=== PATIENT | female | born 1960 | race Caucasian/White ===

== ENCOUNTER 2019-12-25 18:33 | Emergency (ER) | payer OTHER ==
[2019-12-25] MEDS ORDERED: Adacel (T-DAP) 0.5 ML SYRINGE ONE (19:11)
[2019-12-25] MEDS ORDERED: Bacitracin 1 PK ONE (19:24)
== END 2019-12-25 19:34 | disposition home or self-care (01) ==
LOC: ERS 18:33
DX: S61.412A Laceration without foreign body of left hand, initial encounter (principal); E11.9 Type 2 diabetes mellitus without complications; F17.210 Nicotine dependence, cigarettes, uncomplicated; F31.9 Bipolar disorder, unspecified; Z23 Encounter for immunization; W26.8XXA Contact with other sharp object(s), not elsewhere classified, initial encounter
CPT/HCPCS: 12001; 90471; 90715

== ENCOUNTER 2020-06-23 21:04 | Inpatient (IN) | payer MEDICARE, OTHER ==
[2020-06-23 22:08] LABS: #Basophils 0.1 thou/uL (0.0-0.2); #Eosinphils 0.8 thou/uL (0.0-0.7); #Lymphocytes 1.8 thou/uL (1.20-3.40); #Monocytes 0.7 thou/uL (0.11-0.59); %Eosinophils 8.4 % (0.0-10.0); %Lymphocytes 18.8 % (21.0-51.0); %Monocytes 6.9 % (0.0-10.0); %Neutrophils 64.8 % (42.0-75.0); Hemoglobin 10.3 g/dL (12.0-16.0); Mean Corpuscular HGB CONC 33.4 g/dL (32.0-36.0); Mean Corpuscular Hemoglobin 32.8 pg (27.0-31.0); Mean Corpuscular Volume 98.2 fL (78.0-98.0); Mean Platelet Volume 8.4 fL (7.4-10.4); Platelet Count 299 thou/uL (130-400); Red Blood Cell (RBC) Count 3.13 mill/uL (4.20-5.40); White Blood Cell (WBC) Count 9.3 thou/uL (4.8-10.8)
[2020-06-23 22:24] LABS: ALT (SGPT) 11 U/L (8-55); AST (SGOT) 18 U/L (5-34); Albumin 3.8 g/dL (3.5-5.0); Alkaline Phosphatase 133 U/L (40-110); Anion Gap 12 mmol/L (10-20); BUN (Urea Nitrogen) 20 mg/dL (9.8-20.1); Bilirubin, Total 0.2 mg/dL (0.2-1.2); Calc. Creatinine Clearance 0 mL/min (70-130); Calcium 8.9 mg/dL (7.8-10.44); Carbon Dioxide 25 mmol/L (22-29); Chloride 105 mmol/L (98-107); Estimated GFR-MDRD 50; Globulin 2.9 g/dL (2.4-3.5); Glucose 112 mg/dL (70-105); Potassium 4.2 mmol/L (3.5-5.1); Protein, Total 6.7 g/dL (6.0-8.3); Sodium 138 mmol/L (136-145)
--- NOTE | 2020-06-23 23:03 | RAD ---
XR Chest 1 View Portable History: Trouble breathing. Dyspnea Comparison: Radiograph June 10, 2020 Findings: 2 defibrillator pads project over the chest. Mild pulmonary edema. Small effusions. Heart s ize is enlarged. Impression: Mild decompensated congestive heart failure.
[2020-06-23] MEDS ORDERED: Aspirin Chewable 81 MG TAB ONE (23:27)
[2020-06-23] MEDS ORDERED: Furosemide 40 MG/4 ML VIAL ONE (23:42)
[2020-06-24] MEDS ORDERED: cloNIDine 0.1 MG TAB PO PRN (01:19)
[2020-06-24] MEDS ORDERED: Promethazine HCl 12.5 MG in Sodium Chloride 0.9% 50 ML IVPB PRN (01:19)
[2020-06-24] MEDS ORDERED: Labetalol HCl 100 MG/20 ML VIAL SLOW IVP PRN (01:19)
[2020-06-24] MEDS ORDERED: Guaifenesin DM 100-10/5 ML UDCUP PO PRN (01:19)
[2020-06-24] MEDS ORDERED: Acetaminophen 325 MG TAB PO PRN (01:19)
[2020-06-24] MEDS ORDERED: Ondansetron PF 4 MG/2 ML Vial IVP PRN (01:19)
[2020-06-24] MEDS ORDERED: hydrALAZINE 20 MG/ML VIAL SLOW IVP PRN (01:19)
[2020-06-24] MEDS ORDERED: Dextrose 50% Abboject 50 ML SYRINGE SLOW IVP PRN (01:24)
[2020-06-24] MEDS ORDERED: Dextrose 5% in Water 1,000 ML IV PRN (01:24)
--- NOTE | 2020-06-24 01:27 | PDOC.HHP ---
Hospitalist HPI - History of Present Illness Syncope History of Present Illness: Patient is a 59 year old female with PMH CAD, CABG, T2DM, systolic CHF, bipolar disorder, IV drug abuse, HTN who presents to ED for syncopal episode at home with lifevest discharge. patient was recently admitted from 06/04 to 06/12 for chest pain. She had positive stress test, and then heart cath by Dr Mcfadden showing CAD, she then had a CABG by Dr Parker on 06/07, Dr Almendarez of EP was consulted for wide complex arrhythmias during recovery. Her EF was 35% before and after surgery. She was discharged with lifevest, EP study or ICD was discussed should arrhythmia return. she was at home today, began to feel funny, thought that it was because she had low blood sugar, however she apparently then fainted for several minutes. witnessed this, stated she was unconscious for 1-2 minutes, was breathing the whole time, life vest alarms went off. She reports having some chest pain this morning when she turned her torso and she thought it was a pulled muscle. In ED, vitals stable, EKG NSR and no further arrhtyhmias observed in ED, blood sugar in 200s, BNP 500, troponin 0.016, CXR w/ mild CHF and overload, patient to be admitted for observation in IMCU and cardiology/EP evaluation. Hospitalist ROS - Review of Systems Constitutional: reports: other (syncope). denies: fever, chills, sweats, weakness, malaise Eyes: denies: pain, vision change, conjunctivae inflammation, eyelid inflammation, redness, other ENT: denies: ear pain, ear discharge, nose pain, nose discharge, nose congestion, mouth pain, mouth swelling, throat pain, throat swelling, other Respiratory: reports: shortness of breath. denies: cough, dry, hemoptysis, SOB with excertion, pleuritic pain, sputum, wheezing, other Cardiovascular: reports: chest pain. denies: palpitations, orthopnea, paroxysmal noc. dyspnea, edema, light headedness, other Gastrointestinal: denies: nausea, vomiting, abdominal pain, diarrhea, constipation, melena, hematochezia, other Genitourinary: denies: dysuria, frequency, incontinence, hematuria, retention, other Musculoskeletal: denies: neck pain, shoulder pain, arm pain, back pain, hand pain, leg pain, foot pain, other Skin: denies: rash, lesions, susu, bruising, other Neurological: denies: weakness, numbness, incoordination, change in speech, confusion, seizures, other All other systems reviewed; all pertinent +/- noted in HPI/Subj - Medication Medications: reviewed, see admission documents for list Hospitalist History - Past Medical History Other Medical History: CAD, CABG, T2DM, systolic CHF, bipolar disorder, IV drug abuse, HTN - Past Surgical History Past Surgical History: reports: CABG Other Surgical History: cabg, pancreas resection, tubal ligation, back/R vadim surgery, tolsillectomy, C section, cholecystectomy - Family History Family History: reports: no pertinent history - Social History Smoking Status: Never smoker Alcohol: reports: None Drugs: reports: none (distant history) - Exam General Appearance: NAD, awake alert Eye: PERRL, anicteric sclera ENT: normocephalic atraumatic, no oropharyngeal lesions, moist mucosa Neck: supple, symmetric, no JVD, no thyromegaly, no lymphadenopathy, no carotid bruit Heart: RRR, no murmur, no gallops, no rubs, normal peripheral pulses Respiratory: CTAB, no wheezes, no rales, no ronchi, normal chest expansion, no tachypnea, normal percussion Gastrointestinal: soft, non-tender, non-distended, normal bowel sounds, no palpable masses, no hepatomegaly, no splenomegaly, no bruit Extremities: no cyanosis, no clubbing, no edema Skin: normal turgor, no lesions, no rashes Neurological: cranial nerve grossly intact, normal sensation to touch, no weakness, no focal deficits, no new deficit Musculoskeletal: normal tone, normal strength, no muscle wasting Psychiatric: normal affect, normal behavior, A&O x 3 Hospitalist Results - Labs Result Diagrams: 06/23/20 21:35 06/23/20 21:35 Lab results: WBC 9.3 thou/uL (4.8-10.8) 06/23/20 21:35 Hgb 10.3 g/dL (12.0-16.0) L 06/23/20 21:35 Hct 30.7 % (36.0-47.0) L 10/09/20 21:35 MCV 98.2 fL (78.0-98.0) H 06/23/20 21:35 Plt Count 299 thou/uL (130-400) 06/23/20 21:35 Neutrophils % 64.8 % (42.0-75.0) 06/23/20 21:35 Sodium 138 mmol/L (136-145) 06/23/20 21:35 Potassium 4.2 mmol/L (3.5-5.1) 06/23/20 21:35 Chloride 105 mmol/L (98-107) 06/23/20 21:35 Carbon Dioxide 25 mmol/L (22-29) 06/23/20 21:35 BUN 20 mg/dL (9.8-20.1) 06/23/20 21:35 Creatinine 1.12 mg/dL (0.6-1.1) H 06/23/20 21:35 Glucose 112 mg/dL (70-105) H 06/23/20 21:35 Calcium 8.9 mg/dL (7.8-10.44) 06/23/20 21:35 Total Bilirubin 0.2 mg/dL (0.2-1.2) 06/23/20 21:35 AST 18 U/L (5-34) 06/23/20 21:35 ALT 11 U/L (8-55) 06/23/20 21:35 Alkaline Phosphatase 133 U/L (40-110) H 06/23/20 21:35 Troponin I 0.016 ng/mL (< 0.028) 06/23/20 22:27 B-Natriuretic Peptide 472.8 pg/mL (0-100) H 06/23/20 21:54 Serum Total Protein 6.7 g/dL (6.0-8.3) 06/23/20 21:35 Albumin 3.8 g/dL (3.5-5.0) 06/23/20 21:35 Additional comment: VITAL SIGNS Sat Jun 24, 2020 00:04 TRUE Escobar [place] BP: 124/72 MAP: 89 Pulse: 78 Resp: 20 Temp: 98.2 (Oral) Pain: 0 O2 sat: 96 on (Room Air) Time: 06/24/2020 00:04. ED documents, labs, imaging reports, EKG reviewed by me. - EKG Interpretation EKG: NSR, 80 bpm, QTc 403, nonspecific T wave changes, no ST changes of acuity Hospitalist H&P A/P - Plan Plan: Patient is a 59 year old female with PMH CAD, CABG, T2DM, systolic CHF, bipolar disorder, IV drug abuse, HTN who presents to ED for syncopal episode at home with lifevest discharge. # syncope, lifevest discharged - concern for life threatening arrhythmia causing life vest discharge # CAD w/ recent CABG # acute and chronic systolic CHF patient was recently admitted from 06/04 to 06/12 for chest pain. She had positive stress test, and then heart cath by Dr Mcfadden showing CAD, she then had a CABG by Dr Parker on 06/07, Dr Almendarez of EP was consulted for wide complex arrhythmias during recovery. Her EF was 35% before and after surgery. She was discharged with lifevest, today had 1-2 minute syncopal episode w/ prodrome and lifevest discharge - admit to IMCU, monitor closely on telemetry, no arrhythmia observed in ED - aggressive electrolyte replacement for K > 4, Mg > 2 - increase home coreg from 3.125 to 6.25mg PO BID - continue asa, statin, beta tiffany - CTA chest to rule out PE - UA - consult cardiology, EP # DM - resume home lantus split from 40 units qam into 20 units BID - hold scheduled mealtime insulin while NPO - moderate SSI q6h # GERD - resume home ppi # bipolar disorder, depression - resume home buproprion, trazodone DVT/GI ppx
[2020-06-24] MEDS ORDERED: Sodium Chloride 0.9% 1,000 ML IV SCH (01:30)
[2020-06-24] MEDS ORDERED: Electrolyte Replacement Protoc 1 EACH EACH FS SCH (01:30)
[2020-06-24 01:43] VITALS: BMI 26.7
[2020-06-24] MEDS: traZODone HCl 50 MG TAB PO PRN ×2 (02:06→20:30)
[2020-06-24] MEDS: HYDROcodone/Acetaminophen 5/325 mg Tablet PO PRN ×4 (02:31→20:43)
[2020-06-24 04:03] LABS: #Basophils 0.1 thou/uL (0.0-0.2); #Eosinphils 0.8 thou/uL (0.0-0.7); #Lymphocytes 1.8 thou/uL (1.20-3.40); #Monocytes 0.5 thou/uL (0.11-0.59); #Neutrophils 5.9 thou/uL (1.40-6.50); %Basophils 1.1 % (0.0-1.0); %Eosinophils 8.3 % (0.0-10.0); %Lymphocytes 20.2 % (21.0-51.0); %Monocytes 5.4 % (0.0-10.0); Hemoglobin 10.4 g/dL (12.0-16.0); Mean Corpuscular HGB CONC 33.8 g/dL (32.0-36.0); Mean Corpuscular Hemoglobin 32.8 pg (27.0-31.0); Mean Corpuscular Volume 96.9 fL (78.0-98.0); Mean Platelet Volume 8.8 fL (7.4-10.4); Platelet Count 292 thou/uL (130-400); Red Blood Cell (RBC) Count 3.19 mill/uL (4.20-5.40)
[2020-06-24 04:18] LABS: Anion Gap 16 mmol/L (10-20); BUN (Urea Nitrogen) 21 mg/dL (9.8-20.1); Calc. Creatinine Clearance 78 mL/min (70-130); Calcium 8.6 mg/dL (7.8-10.44); Carbon Dioxide 21 mmol/L (22-29); Chloride 103 mmol/L (98-107); Estimated GFR-MDRD 57; Glucose 183 mg/dL (70-105); Magnesium 1.9 mg/dL (1.6-2.6); Potassium 4.1 mmol/L (3.5-5.1); Sodium 136 mmol/L (136-145)
[2020-06-24 04:23] LABS: Troponin I Less than 0.010 ng/mL (< 0.028)
[2020-06-24] MEDS: HumaLOG 300 UNITS/3 ML VIAL SC PRN ×3 (07:15→16:56)
[2020-06-24 07:41] LABS: Bacteria/HPF None Seen HPF (None Seen); Bilirubin Negative (Negative); Blood, Urine Negative (Negative); Clarity Clear (Clear); Glucose, Urine (Dipstick) Normal (Negative); Ketone, Urine Negative (Negative); Leukocyte 75 Leu/uL (Negative); Nitrite Negative (Negative); Protein, Urine (Dipstick) Negative (Neg-Trace); RBC/HPF 0-3 HPF (0-3); Specific Gravity, Urine 1.037 (1.002-1.036); Squamous Epithelial 0-3 HPF (0-3); Urobilinogen Normal mg/dL (Less than 2)
[2020-06-24 07:42] LABS: Urine Culture Reflex Yes Yes
[2020-06-24] MEDS ORDERED: Magnesium 2 GM/50 ML 2 GM in Premix Bag 1 BAG IVPB SCH (08:15)
[2020-06-24] MEDS: Carvedilol 6.25 MG TAB PO SCH ×2 (08:52→16:15)
[2020-06-24] MEDS: Aspirin Chewable 81 MG TAB PO SCH (08:53)
[2020-06-24] MEDS: Folic Acid 1 MG TAB PO SCH (08:54)
[2020-06-24] MEDS: lamoTRIgine 100 MG TAB PO SCH (08:54)
[2020-06-24] MEDS: Gabapentin 300 MG CAP PO SCH ×3 (08:54→20:30)
[2020-06-24] MEDS: Bupropion 100 MG SR TAB PO SCH (08:54)
[2020-06-24] MEDS: Insulin Glargine 20 UNITS in Pre-Filled Syringe 1 EACH SC SCH ×2 (08:57→20:30)
[2020-06-24] MEDS ORDERED: FLU VACC QS2020-21(6MOS UP)/PF 60 MCG/0.5 ML SYRINGE IM ONE (09:00)
[2020-06-24] MEDS ORDERED: Carvedilol 3.125 MG TAB PO SCH (09:00)
[2020-06-24] MEDS ORDERED: Iopamidol-370 76% 500 ML 1 ML ONE (09:12)
--- NOTE | 2020-06-24 10:06 | CON ---
DATE OF CONSULTATION: 06/24/2020 INDICATION FOR CONSULTATION: A 59-year-old female, status post bypass surgery, has cardiomyopathy, went home with a LifeVest and apparently yesterday evening received a shock from the device. HISTORY OF PRESENT ILLNESS: A very unfortunate 59-year-old female with history of coronary artery disease, status post bypass surgery with a history of systolic heart failure with ejection fraction of less than 35%, underwent bypass surgery back on June 07. She had a cardiac catheterization on June 04, I believe and she had an echocardiogram on 06/09, which showed the ejection fraction was still significantly decreased. She was sent home with a LifeVest. She was sitting outside on the porch smoking a cigarette when she suddenly became dizzy, lightheaded and then apparently passed out and received a shock from the device. She did not feel the shock because she was already unconscious, however, but the device does have the blue dye indicating that the device did fire. At this time, she is in the IMCU. She has maintained a sinus rhythm. She does have some nonspecific ST-segment changes on the EKG with there have been no significant arrhythmias since the patient has been admitted to the [facility] that I can determine from evaluation of the tracings. She apparently was unconscious for about 1 to 2 minutes, but apparently did not stop breathing according to the . Her cardiac enzymes are unremarkable for myocardial infarction. Her BNP is slightly elevated at 500. Chest x-ray does show some mild congestive heart failure, otherwise no significant acute problems. Her WBC was 9, potassium was 4.1. At this time, we will continue to monitor her. We will discuss this with the med admin. She may need to undergo at this time, depending on what we can interrogate from the LifeVest. She may need on this admission to undergo an implantation of an AICD. We will repeat the echocardiogram to ensure that there has been no improvement in the left ventricular systolic function. PAST MEDICAL HISTORY: Significant for coronary artery disease, bypass surgery, cardiomyopathy. She also has a history of diabetes, history of illicit drug use, bipolar disorder. She has had problems with MRSA abscesses in the past. She has hypertension. PAST SURGICAL HISTORY: She has had partial pancreas resection. She has had a tubal ligation. She has had back surgery, foot surgery, tonsillectomy, , and cholecystectomy. ALLERGIES: SULFA. REVIEW OF SYSTEMS: She pretty much was doing relatively well at home. She did have some fatigue, otherwise did not complain of any new complaints since her bypass surgery. SOCIAL HISTORY: Unfortunately, she continues to smoke. She denies any illicit drug use at this time. FAMILY HISTORY: Noncontributory. MEDICATIONS: Prior to admission including 1. Pantoprazole. 2. Coreg 3.125 mg b.i.d. 3. Bupropion. 4. Omeprazole. 5. Rosuvastatin. 6. Folic acid. 7. Gabapentin. 8. Lamotrigine. 9. Trazodone. 10. Aspirin 81 mg a day. In the emergency room, she was given furosemide 40 mg and aspirin. She also takes Humalog insulin, Lantus insulin. PHYSICAL EXAMINATION: GENERAL: Reveals a well-developed, well-nourished female. VITAL SIGNS: Blood pressure is 109/68, earlier was 116/72, respiratory rate 17, heart rate 76 and regular, O2 saturation 100%. She has diuresed 1550 mL. HEENT: Shows head to be normocephalic and atraumatic. Carotid pulses are present. Did not hear any significant bruits. CHEST: Actually is clear to auscultation. I do not hear any significant rales, rhonchi, or wheezing. CARDIOVASCULAR: Reveals a regular rate and rhythm at this time. She has a well-healed midline surgical incision after median sternotomy. ABDOMEN: Bowel sounds are present. No tenderness or masses are noted. EXTREMITIES: No clubbing, cyanosis, or edema. Pedal pulses are present. NEUROLOGIC: The patient appears to be intact. LABORATORY DATA: Shows a WBC of 9, hemoglobin was 10, and platelet count 292,000. BUN was 21, creatinine 1.0, blood sugar 183, potassium 4.1, sodium was 136. Cardiac enzymes are negative for myocardial infarction. DIAGNOSTIC STUDIES: EKG shows a normal sinus rhythm with nonspecific changes with decreased R-wave progression in V1 and V2 and nonspecific T-wave inversions in 1, 2, aVF as well as in V3 through V6. I do not have any EKG for comparison at this time. IMPRESSION: 1. A 59-year-old female with cardiomyopathy who went home with a LifeVest. She received a shock yesterday. We will try to get any information for the device if all possible. She is in the IMCU at this time and we will continue to monitor the patient very carefully. We will need to address her ejection fraction once again to see whether or not she has had any further deterioration. We will need to start on antiarrhythmic medications such as Amiodarone. We will also ask med admin to revisit with the patient. She may need at this time to undergo an AICD implant. 2. Coronary artery disease. She is status post bypass surgery. I will need to evaluate the old EKGs to see if there has been any interval changes. She may have had graft failure or further ischemia. She has not had any significant chest pain. She did have some atypical pain yesterday in the right shoulder after she turned abruptly while sitting on the sofa, but this did not appear to be cardiac. 3. History of hypertension. Blood pressure is under good control at this time. 4. History of tobacco abuse. She was smoking yesterday when the device fired. She will be strongly advised to stop smoking altogether once again. 5. A history of wide-complex tachycardia in the past and most likely she has some ventricular tachycardia yesterday that provoked the device to discharge. We will be more than happy to continue to follow the patient with you. Further recommendations will depend on the results of the echocardiogram and how she responds to medical management and also she will be visited by the med admin, most likely on Friday. Job ID: [id number]
--- NOTE | 2020-06-24 10:10 | CT ---
PRELIMINARY REPORT/[facility]/EMERGENCY AFTER HOURS PROCEDURE EXAM: CTA Chest with Intravenous Contrast CLINICAL HISTORY: SYNCOPE, ARRHYTHMIA TECHNIQUE: Axial CTA images of the chest with intravenous contrast. Three-dimensional MIP/volume rendered reform ations were performed. CONTRAST: With; 70ML ISOVUE 370 COMPARISON: None provided. FINDINGS: PULMONARY ARTERIES There is no intraluminal filling defect suspicious for PE. AORTA No thoracic aortic aneurysm or dissection. LUNGS Mild emphysematous changes of the lungs. 1.1 x 0.8 cm pulmonary nodule in the medial aspect of the r ight upper lobe, axial series 2, image 34. No focal airspace consolidation. Bibasilar and lingular linear opacities PLEURAL SPACES Small right pleural effusion. No pneumothorax. HEART AND MEDIASTINUM No cardiomegaly. No significant pericardial effusion. Post CABG changes. LYMPH NODES No lymphadenopathy. BONES No focal osseous abnormality or acute fracture. CHEST WALL AND UPPER ABDOMEN Images through the upper abdomen are unremarkable. The chest wall is unremarkable. IMPRESSION: 1. No acute pulmonary thromboembolism. 2. Small right pleural effusion. Bibasilar and lingular atelectasis. 3. Mild emphysematous changes of the lungs. 4. Right upper medial lobe 1.1 x 0.8 cm pulmonary nodule. Recommend tissue sampling or PET CT for f urther characterization 5. Post CABG changes. ELECTRONICALLY SIGNED BY: Delta Hernandez DO Jun 24, 2020 2:40:31 AM CDT This report is intended for review by the ordering physician only, in accordance of law. If you recei ve this report in error, please call [facility] at [phone]. FINAL REPORT Final report by Dr. Plunkett. Emergency after-hours study CT ANGIOGRAM THORAX WITH CONTRAST: (CTA pulmonary angiogram) DATE: 06/24/2020 2:16 AM HISTORY: 59-year-old female with cardiac arrhythmia status post syncope TECHNIQUE: IV injection of iodinated contrast. Scan acquisition timing attempted to coincide with iodinated contrast bolus reaching maximal density in pulmonary arteries. 3-D MIP reconstructions. FINDINGS: No evidence of pulmonary thromboembolism. No thoracic aortic aneurysm or dissection. Small pericardial effusion. No cardiomegaly. Small left and tiny right pleural effusion. At the far medial aspect of the right upper lobe, there is a 7 x 8 x 11 mm pulmonary nodule. It has c rescentic rim calcification, and therefore appears benign. Mild centrilobular emphysema. Broad airspace opacity at posterior base of right lower lobe abutting the tiny right pleural effusion . Mild streaky densities at lingula perhaps representing subsegmental atelectasis and/or scar. Nonspeci fic mild groundglass changes are also present in that location. No pneumothorax. Sternotomy wires. No major disagreement with preliminary report by [facility]. IMPRESSION: 1) No pulmonary thromboembolism. 2) Small left and tiny right pleural effusion. 3) Small pericardial effusion. 4) Airspace opacity at posterior base of right lower lobe probably represents atelectasis. Pneumonia less likely but not excluded. 5) The 11 mm right upper lobe pulmonary nodule is partially calcified, and therefore appears benign. Transcribed Date/Time: 06/24/2020 11:24 AM
[2020-06-24] MEDS: Amiodarone 450 MG in Dextrose 5% in Water 250 ML IVPB SCH ×2 (10:50→16:48)
--- NOTE | 2020-06-24 13:36 | PDOC.HOSPP ---
- Subjective Encounter Date: 06/24/20 Encounter Time: 11:40 Subjective: awake, no complaints now feels good she doesn't recall exact events last evening denies substance use (last used more than 10 yrs back, had done iv drugs as well with cocaine, meth etc) tried a few drags of cigarette yesterday per patient - Objective Vital Signs & Weight: Vital Signs (12 hours) Temp BP Pulse Ox 06/24/20 11:27 96.8 F L 06/24/20 08:52 109/68 06/24/20 07:36 96 06/24/20 07:13 97.2 F L 06/24/20 04:21 97.8 F Weight Weight 175 lb 12.8 oz Most Recent Monitor Data Heart Rate from ECG 71 NIBP 96/65 NIBP BP-Mean 75 Respiration from ECG 20 SpO2 95 I&O: 06/23/20 06/24/20 06/25/20 06:59 06:59 06:59 Intake Total 350 Output Total 1900 Balance -1550 Result Diagrams: 06/24/20 03:46 06/24/20 03:46 Additional Labs: Accuchecks 06/24/20 06/24/20 06/24/20 12:39 06:53 02:04 POC Glucose 308 H 190 H 169 H Hospitalist ROS - Medication Medications: Active Medications Generic Name Dose Route Start Last Admin Trade Name Freq PRN Reason Stop Dose Admin Hydrocodone Bitart/Acetaminophen 1 tab 06/24/20 01:19 06/24/20 13:26 Hydrocodone/Acetaminophen 5/325 Mg Tablet PO 1 tab Q4H PRN Administration Moderate Pain (4-6) Aspirin 81 mg 06/24/20 09:00 06/24/20 08:53 Aspirin Chewable 81 Mg Tab PO 81 mg DAILY STANLEY Administration Bupropion HCl 200 mg 06/24/20 09:00 06/24/20 08:54 Bupropion 100 Mg Sr Tab PO 200 mg DAILY STANLEY Administration Carvedilol 6.25 mg 06/24/20 08:00 06/24/20 08:52 Carvedilol 6.25 Mg Tab PO 6.25 mg BID-WM STANLEY Administration Folic Acid 0.5 mg 06/24/20 09:00 06/24/20 08:54 Folic Acid 1 Mg Tab PO 0.5 mg DAILY STANLEY Administration Gabapentin 600 mg 06/24/20 09:00 06/24/20 08:54 Gabapentin 300 Mg Cap PO 600 mg TID STANLEY Administration Insulin Glargine 20 units/ 0.2 mls @ 0 mls/hr 06/24/20 09:00 06/24/20 08:57 Miscellaneous Medication SC Not Given BID STANLEY Amiodarone HCl 450 mg/ 259 mls @ 0 mls/hr 06/24/20 09:45 06/24/20 10:50 Dextrose/Water IVPB 259 mls INF STANLEY Administration Protocol Per Protocol Insulin Human Lispro 0 units 06/24/20 01:24 06/24/20 13:23 Humalog 300 Units/3 Ml Vial SC 8 unit .MODERATE SLIDING SC PRN Administration Moderate Correctional Scale Lamotrigine 200 mg 06/24/20 09:00 06/24/20 08:54 Lamotrigine 100 Mg Tab PO 200 mg DAILY STANLEY Administration Pantoprazole Sodium 40 mg 06/24/20 09:00 06/24/20 08:55 Pantoprazole 40 Mg Tab PO 40 mg DAILY STANLEY Administration Trazodone HCl 100 mg 06/24/20 01:31 06/24/20 02:06 Trazodone Hcl 50 Mg Tab PO 100 mg HSPRN PRN Administration Insomnia - Exam General Appearance: awake alert Eye: PERRL, anicteric sclera ENT: no oropharyngeal lesions, dry oral mucosa Neck: supple, no JVD Heart: RRR, no murmur Respiratory: no wheezes, no rales, rhonchi Gastrointestinal: soft, non-tender, non-distended, normal bowel sounds Extremities: no cyanosis, no edema Neurological: cranial nerve grossly intact, no focal deficits Psychiatric: normal affect, A&O x 3 Hosp A/P (1) life vest shock Status: Acute (2) S/P CABG (coronary artery bypass graft) Code(s): Z95.1 - PRESENCE OF AORTOCORONARY BYPASS GRAFT Status: Acute (3) CAD (coronary artery disease) Code(s): I25.10 - ATHSCL HEART DISEASE OF THREE AFFILIATED CORONARY ARTERY W/O ANG PCTRS Status: Chronic Qualifiers: Coronary Disease-Associated Artery/Lesion type: bypass graft [place] vs. transplanted heart: [place] heart (4) Diabetes Code(s): E11.9 - TYPE 2 DIABETES MELLITUS WITHOUT COMPLICATIONS Status: Chronic Qualifiers: Diabetes mellitus type: type 2 (5) Systolic heart failure Code(s): I50.20 - UNSPECIFIED SYSTOLIC (CONGESTIVE) HEART FAILURE Status: Chronic Qualifiers: Heart failure chronicity: chronic Qualified Code(s): I50.22 - Chronic systolic (congestive) heart failure (6) Dyslipidemia Code(s): E78.5 - HYPERLIPIDEMIA, UNSPECIFIED Status: Chronic (7) Tobacco abuse Code(s): Z72.0 - TOBACCO USE Status: Chronic - Plan cardiology will try to get tracings from [employer] has h/o wide complex tachy, ef of 35% recent cabg with discharge home on [employer] is started on amiodarone drip, continue coreg, asp, crestor, gabapentin, lantus bid hemostable no arrhythmias on telemetry so far d/w , will have EP consult for likely aicd placement
[2020-06-24 15:26] LABS: SARS-CoV-2 MS2 Positive; SARS-CoV-2 N Gene Negative; SARS-CoV-2 S Gene Negative; SARS-CoV-2 by NAA Not Detected (NotDetected); SARS-CoV-2 orf1ab Negative
[2020-06-24] MEDS: Enoxaparin Sodium 40 MG/0.4 ML SYRINGE SC SCH (20:29)
[2020-06-24] MEDS: Rosuvastatin 20 MG TAB PO SCH (20:30)
[2020-06-25 03:54] LABS: #Basophils 0.1 thou/uL (0.0-0.2); #Eosinphils 0.8 thou/uL (0.0-0.7); #Lymphocytes 2.3 thou/uL (1.20-3.40); #Monocytes 0.6 thou/uL (0.11-0.59); #Neutrophils 4.9 thou/uL (1.40-6.50); %Basophils 1.1 % (0.0-1.0); %Eosinophils 8.9 % (0.0-10.0); %Lymphocytes 26.5 % (21.0-51.0); %Monocytes 6.6 % (0.0-10.0); %Neutrophils 56.9 % (42.0-75.0); Mean Corpuscular HGB CONC 33.2 g/dL (32.0-36.0); Mean Corpuscular Hemoglobin 32.7 pg (27.0-31.0); Mean Corpuscular Volume 98.3 fL (78.0-98.0); Mean Platelet Volume 8.7 fL (7.4-10.4); Platelet Count 269 thou/uL (130-400); RBC Distribution Width 13.2 % (11.5-14.5); Red Blood Cell (RBC) Count 3.35 mill/uL (4.20-5.40); White Blood Cell (WBC) Count 8.7 thou/uL (4.8-10.8)
[2020-06-25 04:14] LABS: Anion Gap 13 mmol/L (10-20); BUN (Urea Nitrogen) 19 mg/dL (9.8-20.1); Calc. Creatinine Clearance 83 mL/min (70-130); Calcium 8.6 mg/dL (7.8-10.44); Carbon Dioxide 27 mmol/L (22-29); Chloride 101 mmol/L (98-107); Estimated GFR-MDRD 61; Glucose 217 mg/dL (70-105); Magnesium 2.2 mg/dL (1.6-2.6); Potassium 4.7 mmol/L (3.5-5.1); Sodium 136 mmol/L (136-145)
[2020-06-25] MEDS: HumaLOG 300 UNITS/3 ML VIAL SC PRN ×2 (06:00→13:39)
[2020-06-25] MEDS: Aspirin Chewable 81 MG TAB PO SCH (07:46)
[2020-06-25] MEDS: Bupropion 100 MG SR TAB PO SCH (07:46)
[2020-06-25] MEDS: Carvedilol 6.25 MG TAB PO SCH ×2 (07:46→16:49)
[2020-06-25] MEDS: Gabapentin 300 MG CAP PO SCH ×3 (07:47→20:35)
[2020-06-25] MEDS: lamoTRIgine 100 MG TAB PO SCH (07:47)
[2020-06-25] MEDS: Folic Acid 1 MG TAB PO SCH (07:47)
[2020-06-25] MEDS: Insulin Glargine 20 UNITS in Pre-Filled Syringe 1 EACH SC SCH (07:48)
[2020-06-25] MEDS: Amiodarone 450 MG in Dextrose 5% in Water 250 ML IVPB SCH (07:48)
[2020-06-25] MEDS: HYDROcodone/Acetaminophen 5/325 mg Tablet PO PRN ×3 (07:49→20:40)
--- NOTE | 2020-06-25 13:13 | PDOC.HOSPP ---
- Subjective Encounter Date: 06/25/20 Encounter Time: 12:00 Subjective: no chest pain or palp feels good is tolerating oral diet - Objective Vital Signs & Weight: Vital Signs (12 hours) Temp BP 06/25/20 11:27 98.7 F 06/25/20 07:46 102/68 06/25/20 07:26 96.8 F L 06/25/20 04:50 97.6 F Weight Weight 174 lb 12.8 oz Most Recent Monitor Data Heart Rate from ECG 67 NIBP 98/59 NIBP BP-Mean 72 Respiration from ECG 16 SpO2 100 I&O: 06/24/20 06/25/20 06/26/20 06:59 06:59 06:59 Intake Total 350 1457.7 Output Total 7840 1925 Balance -1550 -467.3 Result Diagrams: 06/25/20 03:35 06/25/20 03:35 Additional Labs: Accuchecks 06/25/20 06/24/20 06/24/20 05:48 20:31 16:53 POC Glucose 213 H 256 H 241 H Hospitalist ROS - Medication Medications: Active Medications Generic Name Dose Route Start Last Admin Trade Name Freq PRN Reason Stop Dose Admin Hydrocodone Bitart/Acetaminophen 1 tab 06/24/20 01:19 06/25/20 07:49 Hydrocodone/Acetaminophen 5/325 Mg Tablet PO 1 tab Q4H PRN Administration Moderate Pain (4-6) Aspirin 81 mg 06/24/20 09:00 06/25/20 07:46 Aspirin Chewable 81 Mg Tab PO 81 mg DAILY STANLEY Administration Bupropion HCl 200 mg 06/24/20 09:00 06/25/20 07:46 Bupropion 100 Mg Sr Tab PO 200 mg DAILY STANLEY Administration Carvedilol 6.25 mg 06/24/20 08:00 06/25/20 07:46 Carvedilol 6.25 Mg Tab PO 6.25 mg BID-WM STANLEY Administration Enoxaparin Sodium 40 mg 06/24/20 21:00 06/24/20 20:29 Enoxaparin Sodium 40 Mg/0.4 Ml Syringe SC 40 mg 2100 STANLEY Administration Folic Acid 0.5 mg 06/24/20 09:00 06/25/20 07:47 Folic Acid 1 Mg Tab PO 0.5 mg DAILY STANLEY Administration Gabapentin 600 mg 06/24/20 09:00 06/25/20 07:47 Gabapentin 300 Mg Cap PO 600 mg TID STANLEY Administration Insulin Glargine 20 units/ 0.2 mls @ 0 mls/hr 06/24/20 09:00 06/25/20 07:48 Miscellaneous Medication SC 0.2 mls BID STANLEY Administration Amiodarone HCl 450 mg/ 259 mls @ 0 mls/hr 06/24/20 09:45 06/25/20 07:48 Dextrose/Water IVPB 259 mls INF STANLEY Administration Protocol Per Protocol Insulin Human Lispro 0 units 06/24/20 01:24 06/25/20 06:00 Humalog 300 Units/3 Ml Vial SC 4 unit .MODERATE SLIDING SC PRN Administration Moderate Correctional Scale Lamotrigine 200 mg 06/24/20 09:00 06/25/20 07:47 Lamotrigine 100 Mg Tab PO 200 mg DAILY STANLEY Administration Pantoprazole Sodium 40 mg 06/24/20 09:00 06/25/20 07:48 Pantoprazole 40 Mg Tab PO 40 mg DAILY STANLEY Administration Rosuvastatin Calcium 20 mg 06/24/20 21:00 06/24/20 20:30 Rosuvastatin 20 Mg Tab PO 20 mg HS STANLEY Administration Trazodone HCl 100 mg 06/24/20 01:31 06/24/20 20:30 Trazodone Hcl 50 Mg Tab PO 100 mg HSPRN PRN Administration Insomnia - Exam General Appearance: awake alert Eye: PERRL, anicteric sclera ENT: no oropharyngeal lesions, moist mucosa Neck: supple, no JVD Heart: RRR, no murmur Respiratory: no wheezes, no rales, rhonchi Gastrointestinal: soft, non-tender, non-distended, normal bowel sounds Extremities: no cyanosis, no edema Neurological: cranial nerve grossly intact, no focal deficits Psychiatric: normal affect, A&O x 3 Hosp A/P (1) life vest shock Status: Acute (2) S/P CABG (coronary artery bypass graft) Code(s): Z95.1 - PRESENCE OF AORTOCORONARY BYPASS GRAFT Status: Acute (3) CAD (coronary artery disease) Code(s): I25.10 - ATHSCL HEART DISEASE OF [place] CORONARY ARTERY W/O ANG PCTRS Status: Chronic Qualifiers: Coronary Disease-Associated Artery/Lesion type: bypass graft [place] vs. transplanted heart: [place] heart (4) Diabetes Code(s): E11.9 - TYPE 2 DIABETES MELLITUS WITHOUT COMPLICATIONS Status: Chronic Qualifiers: Diabetes mellitus type: type 2 (5) Systolic heart failure Code(s): I50.20 - UNSPECIFIED SYSTOLIC (CONGESTIVE) HEART FAILURE Status: Chronic Qualifiers: Heart failure chronicity: chronic Qualified Code(s): I50.22 - Chronic systolic (congestive) heart failure (6) Dyslipidemia Code(s): E78.5 - HYPERLIPIDEMIA, UNSPECIFIED Status: Chronic (7) Tobacco abuse Code(s): Z72.0 - TOBACCO USE Status: Chronic - Plan cardiology will try to get tracings from [employer] has h/o wide complex tachy, ef of 25% recent cabg with discharge home on [employer] is started on amiodarone drip, continue coreg, asp, crestor, gabapentin, lantus bid hemostable no arrhythmias on telemetry so far will have EP consult for likely aicd placement cabg site and vein harvest sites are clean and healing well.
[2020-06-25] MEDS: HumaLOG 300 UNITS/3 ML VIAL SC SCH (16:50)
[2020-06-25] MEDS: Rosuvastatin 20 MG TAB PO SCH (20:35)
[2020-06-25] MEDS: Insulin Glargine 40 UNITS in Pre-Filled Syringe 1 EACH SC SCH (20:36)
[2020-06-25] MEDS: Enoxaparin Sodium 40 MG/0.4 ML SYRINGE SC SCH (20:36)
[2020-06-25] MEDS: traZODone HCl 50 MG TAB PO PRN (22:50)
[2020-06-26] MEDS: HYDROcodone/Acetaminophen 5/325 mg Tablet PO PRN ×5 (00:19→21:58)
[2020-06-26] MEDS: Amiodarone 450 MG in Dextrose 5% in Water 250 ML IVPB SCH (03:06)
[2020-06-26 04:30] LABS: #Basophils 0.1 thou/uL (0.0-0.2); #Eosinphils 0.8 thou/uL (0.0-0.7); #Lymphocytes 2.2 thou/uL (1.20-3.40); #Monocytes 0.6 thou/uL (0.11-0.59); #Neutrophils 5.5 thou/uL (1.40-6.50); %Basophils 0.9 % (0.0-1.0); %Eosinophils 8.6 % (0.0-10.0); %Neutrophils 60.5 % (42.0-75.0); Hemoglobin 10.8 g/dL (12.0-16.0); Mean Corpuscular HGB CONC 33.7 g/dL (32.0-36.0); Mean Corpuscular Hemoglobin 32.6 pg (27.0-31.0); Mean Corpuscular Volume 96.7 fL (78.0-98.0); Mean Platelet Volume 9.3 fL (7.4-10.4); Platelet Count 260 thou/uL (130-400); RBC Distribution Width 13.4 % (11.5-14.5); White Blood Cell (WBC) Count 9.1 thou/uL (4.8-10.8)
[2020-06-26 05:01] LABS: Anion Gap 13 mmol/L (10-20); BUN (Urea Nitrogen) 20 mg/dL (9.8-20.1); Calc. Creatinine Clearance 72 mL/min (70-130); Calcium 8.4 mg/dL (7.8-10.44); Carbon Dioxide 25 mmol/L (22-29); Chloride 102 mmol/L (98-107); Estimated GFR-MDRD 52; Glucose 250 mg/dL (70-105); Potassium 4.8 mmol/L (3.5-5.1); Sodium 135 mmol/L (136-145)
[2020-06-26] MEDS ORDERED: Magnesium 2 GM/50 ML 2 GM in Premix Bag 1 BAG IVPB SCH (06:30)
[2020-06-26] MEDS: Gabapentin 300 MG CAP PO SCH ×3 (08:50→20:34)
[2020-06-26] MEDS: Carvedilol 6.25 MG TAB PO SCH ×2 (08:51→17:57)
[2020-06-26] MEDS: Aspirin Chewable 81 MG TAB PO SCH (08:51)
[2020-06-26] MEDS: Bupropion 100 MG SR TAB PO SCH (08:53)
[2020-06-26] MEDS: lamoTRIgine 100 MG TAB PO SCH (08:58)
[2020-06-26] MEDS: HumaLOG 300 UNITS/3 ML VIAL SC SCH ×3 (09:00→17:49)
[2020-06-26] MEDS ORDERED: Midazolam HCl 2 mg/2 ml Vial ONE (09:54)
[2020-06-26] MEDS ORDERED: Fentanyl 100 MCG/2 ML VIAL ONE (09:54)
[2020-06-26] MEDS ORDERED: Ketamine 50 MG/ML (10ML VIAL) ONE (09:54)
[2020-06-26] MEDS ORDERED: Propofol 500 MG/50 ML VIAL ONE ×2 (09:54→10:13)
[2020-06-26] MEDS ORDERED: CEFAZOLIN 1 GM VIAL ONE (10:01)
[2020-06-26] MEDS ORDERED: Gentamicin 80 MG/2 ML VIAL ONE (10:01)
[2020-06-26] MEDS ORDERED: Lidocaine 1% (PF) 30 ML VIAL ONE ×2 (10:01→10:57)
[2020-06-26] MEDS ORDERED: Lidocaine 2% Jelly 5 ML TUBE ONE (10:38)
[2020-06-26] MEDS ORDERED: EPHEDRINE 25 MG/5 ML SYRINGE ONE (12:35)
--- NOTE | 2020-06-26 13:21 | RAD ---
PORTABLE CHEST: Date: 06/26/2020 HISTORY: Post ICD placement. COMPARISON: 06/23/2020. FINDINGS/IMPRESSION: Mild cardiomegaly and mild vascular engorgement. AICD lead has been placed via the left subclavian. L ead appears adequately positioned overlying the right ventricle. Postop sternotomy changes are noted. No pneumothorax or acute process. POS: OFF
[2020-06-26] MEDS ORDERED: Acetaminophen/Codeine 30-300mg Tablet PO PRN ×2 (13:30)
[2020-06-26] MEDS: Folic Acid 1 MG TAB PO SCH (15:06)
--- NOTE | 2020-06-26 16:51 | PDOC.HOSPP ---
- Subjective Encounter Date: 06/26/20 Subjective: Doing generally well. Concerned about her blood sugars but feels like she will be able to get home in the morning and get better control. Says we have her on a different sliding scale than she typically takes but she does not want to make changes at this point. Tolerated the placement of the AICD well. - Objective Vital Signs & Weight: Vital Signs (12 hours) Temp Pulse Resp BP BP Pulse Ox 06/26/20 08:51 124/60 06/26/20 08:00 97.6 F 63 16 124/60 95 Weight Weight 174 lb 12.8 oz Most Recent Monitor Data Heart Rate from ECG 69 NIBP 128/65 NIBP BP-Mean 86 Respiration from ECG 17 SpO2 100 I&O: 06/25/20 06/26/20 06/27/20 06:59 06:59 06:59 Intake Total 1457.7 1954.4 100 Output Total 1925 1000 300 Balance -467.3 954.4 -200 Result Diagrams: 06/26/20 04:11 06/26/20 04:11 Additional Labs: Accuchecks 06/26/20 06/26/20 06/26/20 16:39 07:37 05:59 POC Glucose 266 H 242 H 242 H 06/25/20 06/25/20 20:36 16:43 POC Glucose 69 L 104 H Hospitalist ROS - Medication Medications: Active Medications Generic Name Dose Route Start Last Admin Trade Name Freq PRN Reason Stop Dose Admin Acetaminophen 650 mg 06/24/20 01:19 06/25/20 22:43 Acetaminophen 325 Mg Tab PO 650 mg Q4H PRN Administration Headache/Fever/Mild Pain (1-3) Hydrocodone Bitart/Acetaminophen 1 tab 06/24/20 01:19 06/26/20 08:58 Hydrocodone/Acetaminophen 5/325 Mg Tablet PO 1 tab Q4H PRN Administration Moderate Pain (4-6) Aspirin 81 mg 06/24/20 09:00 06/26/20 08:51 Aspirin Chewable 81 Mg Tab PO 81 mg DAILY STANLEY Administration Bupropion HCl 200 mg 06/24/20 09:00 06/26/20 08:53 Bupropion 100 Mg Sr Tab PO 200 mg DAILY STANLEY Administration Carvedilol 6.25 mg 06/24/20 08:00 10/12/20 08:51 Carvedilol 6.25 Mg Tab PO 6.25 mg BID-WM STANLEY Administration Folic Acid 0.5 mg 06/24/20 09:00 06/26/20 15:06 Folic Acid 1 Mg Tab PO 0.5 mg DAILY STANLEY Administration Gabapentin 600 mg 06/24/20 09:00 06/26/20 15:05 Gabapentin 300 Mg Cap PO 600 mg TID STANLEY Administration Insulin Glargine 40 units/ 0.4 mls @ 0 mls/hr 06/25/20 21:00 06/25/20 20:36 Miscellaneous Medication SC Not Given HS STANLEY As Directed Insulin Human Lispro 6 units 06/25/20 17:00 06/26/20 15:00 Humalog 300 Units/3 Ml Vial SC 6 unit TID-WM STANLEY Administration Lamotrigine 200 mg 06/24/20 09:00 06/26/20 08:58 Lamotrigine 100 Mg Tab PO 200 mg DAILY STANLEY Administration Pantoprazole Sodium 40 mg 06/24/20 09:00 06/26/20 08:52 Pantoprazole 40 Mg Tab PO 40 mg DAILY STANLEY Administration Rosuvastatin Calcium 20 mg 06/24/20 21:00 06/25/20 20:35 Rosuvastatin 20 Mg Tab PO 20 mg HS STANLEY Administration Trazodone HCl 100 mg 06/24/20 01:31 06/25/20 22:50 Trazodone Hcl 50 Mg Tab PO 100 mg HSPRN PRN Administration Insomnia - Exam General Appearance: NAD, awake alert Heart: RRR, no murmur, no gallops, no rubs, normal peripheral pulses Respiratory: CTAB, no wheezes, no rales, no ronchi, normal chest expansion, no tachypnea, normal percussion Gastrointestinal: soft, non-tender, non-distended, normal bowel sounds, no p alpable masses, no hepatomegaly, no splenomegaly, no bruit Extremities: no cyanosis, no clubbing, no edema Skin: normal turgor Skin - other findings: AICD site in the left subclavian area appears healthy Musculoskeletal: normal tone Hosp A/P (1) Ventricular fibrillation Code(s): I49.01 - VENTRICULAR FIBRILLATION Status: Acute (2) life vest shock Status: Acute (3) Dyslipidemia Code(s): E78.5 - HYPERLIPIDEMIA, UNSPECIFIED Status: Chronic (4) Tobacco abuse Code(s): Z72.0 - TOBACCO USE Status: Chronic (5) S/P CABG (coronary artery bypass graft) Code(s): Z95.1 - PRESENCE OF AORTOCORONARY BYPASS GRAFT Status: Acute (6) Diabetes Code(s): E11.9 - TYPE 2 DIABETES MELLITUS WITHOUT COMPLICATIONS Status: Chronic Qualifiers: Diabetes mellitus type: type 2 - Plan Ventricular fibrillation with life vest discharge: Patient had a significant V. fib terminated. She underwent AICD placement today. Ischemic cardiomyopathy: Ejection fraction is a bit lower now. No evidence of decompensated failure. Diabetes mellitus: Patient's blood sugars are running in the 200s today. We discussed possible changes however she feels confident that if she goes home in the morning she can make the appropriate adjustments in would prefer not to try to change things currently.
[2020-06-26] MEDS: CEFAZOLIN 1 GM in Sodium Chloride 0.9% 100 ML IVPB SCH (17:49)
[2020-06-26] MEDS: Amiodarone 200 MG TAB PO SCH (20:34)
[2020-06-26] MEDS: Insulin Glargine 40 UNITS in Pre-Filled Syringe 1 EACH SC SCH (20:34)
[2020-06-26] MEDS: Rosuvastatin 20 MG TAB PO SCH (20:34)
[2020-06-26] MEDS: traZODone HCl 50 MG TAB PO PRN (20:40)
[2020-06-27] MEDS: CEFAZOLIN 1 GM in Sodium Chloride 0.9% 100 ML IVPB SCH (02:35)
[2020-06-27] MEDS: Cephalexin 250 MG CAP PO SCH ×3 (05:51→21:08)
--- NOTE | 2020-06-27 06:31 | CON ---
DATE OF CONSULTATION: 06/26/2020 PRIMARY CORPORATE LEGAL MANAGER: Isidro Mcfadden MD I am seeing Ms. Rodriguez at our [facility] Telemetry Floor as an electrophysiology enrollment consultant. Her problems are; 1. Episode of VF arrest. a. Requiring LifeVest defibrillation. b. History of nonsustained wide-complex tachycardia one day post bypass surgery. 2. Ischemic cardiomyopathy. a. H/O unstable angina and abnormal stress test prompting left heart catheterization demonstrating three-vessel coronary artery disease in May 2020. b. Reduced LVEF 30% to 35% with severe multivessel disease by echo on 06/05/2020 and 06/08/2020 pre and post bypass surgery. c. Status post CABG x3 vessels 06/06/2020. 3. History of bipolar disorder. 4. Remote history of MRSA abscess. 5. History of smoking. 6. Diabetes. 7. History of hypertension. ALLERGIES: SULFA. MEDICATIONS: At home including; 1. Lamotrigine. 2. Biotin. 3. Daily probiotic. 4. Folic acid. 5. Gabapentin. 6. Bupropion. 7. Trazodone. 8. Tylenol/diphenhydramine. 9. Lantus insulin. 10. Humalog. 11. Aspirin. 12. Carvedilol 3.125 mg twice a day. 13. Crestor. 14. Pantoprazole. 15. Omeprazole. SUBJECTIVE: Mrs. Rodriguez was admitted after an episode of syncopal spell, which occurred while she was out on her porch smoking. She suddenly lost consciousness, and she woke up, although she cannot recall but has obvious signs of defibrillation on LiveVest gel discharge. Since then in the ER, no acute coronary syndrome issues were noted, but underwent IV amiodarone loading she is still receiving at this time. Subsequently, she had no further sustained or nonsustained ventricular arrhythmias. She has some elevation in BNP. I reviewed 2D echocardiogram, which reveals LVEF 25% to 30%. REVIEW OF SYSTEMS: Rest of 12-point review of system otherwise unremarkable. PAST HISTORY: As above. She has remote history of IV drug use, type 2 diabetes, required to undergo pancreatic surgery after some trauma, bipolar disorder, depression, borderline hypertension, history of MRSA abscess in the past. SOCIAL HISTORY: The patient lives independently. Denies EtOH abuse. Has remote IV drug abuse history for many years, but not recently. Denies drug use. Reports smoking at least one pack a day. FAMILY HISTORY: Not contributory. OBJECTIVE DATA: VITAL SIGNS: Blood pressure 124/60, heart rate 63, respiratory rate 16, and temperature 97.6 degrees Fahrenheit. GENERAL: Alert and oriented woman, in no apparent distress. NECK: Supple. Jugular veins not distended. CHEST: Coarse without crackles. CARDIAC: Heart sounds are regular to rate and rhythm. No murmur or gallop. ABDOMEN: Benign. Bowel sounds positive. EXTREMITIES: Lower extremities without edema, clubbing, or cyanosis. Pulses are adequate. NEUROLOGIC: Nonfocal. MUSCULOSKELETAL: Without joint swelling or deformity. SKIN: Without rash. DATABASE: The EKG reviewed from 06/23/2020 revealing sinus rhythm, rate of 90 beats per minute. No signs of ST-T changes. QTc is 403 milliseconds. Subsequent EKGs reveals sinus rhythm changes, narrow QRS, no marked bradycardia, no atrial arrhythmias. LABORATORY DATA: White cell count is 9.1, hemoglobin 10.8, and platelet count is 260. Sodium 135, potassium 4.8, BUN is 20, and creatinine 1.08. The COVID serology was negative on 06/24/2020. ASSESSMENT AND PLAN: Ms. Rodriguez is a pleasant 59-year-old woman with history of three-vessel coronary artery disease detected in the May, also noted to have [id number] left ventricular ejection fraction at that time. She underwent a bypass surgery and one day post bypass surgery, she had a short, nonsustained ventricular tachycardia spell, eventually due to high risk, she was discharged on LifeVest. Now, she is returning after a LifeVest discharge. Interrogation of LifeVest clearly reveals ventricular fibrillation event, which was successfully terminated. She recovered without any need for resuscitation and no neurological damage noted either. There are also no acute ischemic concerns per Cardiology. She is clearly at high risk for recurrent ventricular arrhythmias. I agree with the initiated amiodarone, which likely could be tapered to p.o. tapering regimen. On the other hand, she even with that she carries a high long-term risk. Even though with recent bypass surgery, it is reasonable to proceed with ICD implant. This would be a primary prophylaxis device due to lack of atrial arrhythmias or marked bradycardia, Single-chamber ICD is planned. We discussed the pros and cons of the procedure. She understands the risk of infection, bleeding, anesthesia-related complications, device malfunction, lead dislodgement. She is willing to proceed. We will proceed at the earliest time available. Thank you again for allowing me to participate in the care this patient. Job ID: [id number] MTDD
[2020-06-27] MEDS: HumaLOG 300 UNITS/3 ML VIAL SC SCH ×3 (07:43→20:43)
[2020-06-27] MEDS: Carvedilol 6.25 MG TAB PO SCH ×2 (07:43→21:13)
--- NOTE | 2020-06-27 09:05 | EKG ---
Test Reason : POST ICD Blood Pressure : / mmHG Vent. Rate : 059 BPM Atrial Rate : 059 BPM P-R Int : 180 ms QRS Dur : 102 ms QT Int : 430 ms P-R-T Axes : 040 016 177 degrees QTc Int : 425 ms Sinus bradycardia T wave abnormality, consider inferolateral ischemia Abnormal ECG When compared with ECG of 23-JUN-2020 21:11, (Unconfirmed) No significant change was found Confirmed by DR. Jaime JOSEPH ([id number]) on 06/27/2020 9:05:21 AM Referred By: DARREN Confirmed By:DR. Jaime JOSEPH
[2020-06-27] MEDS ORDERED: Iopamidol 370 76% 100 ML VIAL ONE (09:18)
[2020-06-27] MEDS: Bupropion 100 MG SR TAB PO SCH (09:22)
[2020-06-27] MEDS: Amiodarone 200 MG TAB PO SCH ×2 (09:22→21:06)
[2020-06-27] MEDS: Aspirin Chewable 81 MG TAB PO SCH (09:22)
[2020-06-27] MEDS: Gabapentin 300 MG CAP PO SCH ×3 (09:22→21:07)
[2020-06-27] MEDS: lamoTRIgine 100 MG TAB PO SCH (09:23)
[2020-06-27] MEDS: Folic Acid 1 MG TAB PO SCH (09:23)
[2020-06-27] MEDS ORDERED: Sodium Chloride 0.9% 1,000 ML IV SCH (10:00)
--- NOTE | 2020-06-27 15:51 | PDOC.HOSPP ---
- Subjective Encounter Date: 06/27/20 Subjective: Generally feels okay. She is a little bit upset by the situation going on with her heart. She states that she has done this to herself with years of drug abuse and smoking. Says she only quit smoking crack about a year ago. Now she feels like she is paying the sotelo for all of that behavior when she actually got herself clean and straightened out. - Objective Vital Signs & Weight: Vital Signs (12 hours) Temp Pulse Resp BP Pulse Ox 06/27/20 15:27 97.9 F 69 16 130/60 96 06/27/20 11:15 98.6 F 68 16 125/60 95 06/27/20 07:35 98.1 F 69 16 113/55 L 95 06/27/20 04:00 98.2 F 70 18 121/59 L 94 L Weight Weight 174 lb Most Recent Monitor Data Heart Rate from ECG 69 NIBP 128/65 NIBP BP-Mean 86 Respiration from ECG 17 SpO2 100 I&O: 06/26/20 06/27/20 06/28/20 06:59 06:59 06:59 Intake Total 1954.4 1485 Output Total 1000 300 Balance 954.4 1185 Result Diagrams: 06/26/20 04:11 06/26/20 04:11 Additional Labs: Accuchecks 06/27/20 06/27/20 06/26/20 11:02 05:47 20:24 POC Glucose 139 H 159 H 193 H 06/26/20 16:39 POC Glucose 266 H Hospitalist ROS - Medication Medications: Active Medications Generic Name Dose Route Start Last Admin Trade Name Abbi PRN Reason Stop Dose Admin Acetaminophen 650 mg 06/24/20 01:19 06/25/20 22:43 Acetaminophen 325 Mg Tab PO 650 mg Q4H PRN Administration Headache/Fever/Mild Pain (1-3) Acetaminophen/Codeine Phosphate 1 tab 06/26/20 13:30 06/26/20 20:35 Acetaminophen/Codeine 30-300mg Tablet PO 1 tab Q4H PRN Administration Mild Pain (1-3) Hydrocodone Bitart/Acetaminophen 1 tab 06/24/20 01:19 06/26/20 21:58 Hydrocodone/Acetaminophen 5/325 Mg Tablet PO 1 tab Q4H PRN Administration Moderate Pain (4-6) Amiodarone HCl 400 mg 06/26/20 21:00 06/27/20 09:22 Amiodarone 200 Mg Tab PO 07/03/20 08:00 400 mg BID STANLEY Administration Aspirin 81 mg 06/24/20 09:00 06/27/20 09:22 Aspirin Chewable 81 Mg Tab PO 81 mg DAILY STANLEY Administration Bupropion HCl 200 mg 06/24/20 09:00 06/27/20 09:22 Bupropion 100 Mg Sr Tab PO 200 mg DAILY STANLEY Administration Carvedilol 6.25 mg 06/24/20 08:00 06/27/20 07:43 Carvedilol 6.25 Mg Tab PO 6.25 mg BID-WM STANLEY Administration Cephalexin 500 mg 06/27/20 06:00 06/27/20 14:09 Cephalexin 250 Mg Cap PO 07/03/20 22:01 500 mg Q8HR STANLEY Administration Folic Acid 0.5 mg 06/24/20 09:00 06/27/20 09:23 Folic Acid 1 Mg Tab PO 0.5 mg DAILY STANLEY Administration Gabapentin 600 mg 06/24/20 09:00 06/27/20 14:09 Gabapentin 300 Mg Cap PO 600 mg TID STANLEY Administration Insulin Glargine 40 units/ 0.4 mls @ 0 mls/hr 06/25/20 21:00 06/26/20 20:34 Miscellaneous Medication SC 0.4 mls HS STANLEY Administration As Directed Sodium Chloride 1,000 mls @ 100 mls/hr 06/27/20 10:00 06/27/20 11:13 Normal Saline 0.9% IV 1,000 mls .Q10H STANLEY Administration Insulin Human Lispro 6 units 06/25/20 17:00 06/27/20 12:53 Humalog 300 Units/3 Ml Vial SC Not Given TID-WM STANLEY Lamotrigine 200 mg 06/24/20 09:00 06/27/20 09:23 Lamotrigine 100 Mg Tab PO 200 mg DAILY STANLEY Administration Pantoprazole Sodium 40 mg 06/24/20 09:00 06/27/20 09:23 Pantoprazole 40 Mg Tab PO 40 mg DAILY STANLEY Administration Rosuvastatin Calcium 20 mg 06/24/20 21:00 06/26/20 20:34 Rosuvastatin 20 Mg Tab PO 20 mg HS STANLEY Administration Sodium Chloride 10 ml 06/26/20 13:30 06/26/20 17:49 Flush - Normal Saline 10 Ml Syringe IVF 10 ml PRN PRN Administration Saline Flush Trazodone HCl 100 mg 06/24/20 01:31 06/26/20 20:40 Trazodone Hcl 50 Mg Tab PO 100 mg HSPRN PRN Administration Insomnia - Exam General Appearance: NAD, awake alert General - other findings: A little emotional at times. Neck: no JVD Heart: RRR, no murmur, no gallops, no rubs, normal peripheral pulses Respiratory: CTAB, no wheezes, no rales, no ronchi, normal chest expansion, no tachypnea, normal percussion Gastrointestinal: soft, non-tender, non-distended, normal bowel sounds, no palpable masses, no hepatomegaly, no splenomegaly, no bruit Extremities: no cyanosis, no clubbing, no edema Skin: normal turgor Skin - other findings: Defibrillator site looks healthy. Musculoskeletal: normal tone, normal strength, no muscle wasting Psychiatric: normal affect, normal behavior, A&O x 3 Hosp A/P (1) Ventricular fibrillation Code(s): I49.01 - VENTRICULAR FIBRILLATION Status: Acute (2) life vest shock Status: Acute (3) Dyslipidemia Code(s): E78.5 - HYPERLIPIDEMIA, UNSPECIFIED Status: Chronic (4) Tobacco abuse Code(s): Z72.0 - TOBACCO USE Status: Chronic (5) S/P CABG (coronary artery bypass graft) Code(s): Z95.1 - PRESENCE OF AORTOCORONARY BYPASS GRAFT Status: Acute (6) Diabetes Code(s): E11.9 - TYPE 2 DIABETES MELLITUS WITHOUT COMPLICATIONS Status: Chronic Qualifiers: Diabetes mellitus type: type 2 - Plan Ventricular fibrillation with life vest discharge, status post AICD placement: Patient had a significant V. fib terminated. She underwent AICD placement 06/27/2020. Doing well subsequently. EP recommended a tapering dose of amiodarone. She will need p.o. Keflex for the AICD placement for 1 week. Ischemic cardiomyopathy: Ejection fraction is a bit lower now, 25 to 30% with diastolic dysfunction as well. No evidence of decompensated failure. Coronary artery disease: Patient recently underwent bypass surgery. Given the recurrence of the a rrhythmia Dr. Mcfadden is informing that he plans to do a heart cath to rule out an ischemic origin. Diabetes mellitus: Blood sugars were initially elevated over 200. With appropriate sliding scale her blood sugars have improved substantially since. Hyperlipidemia: Continue rosuvastatin.
[2020-06-27] MEDS ORDERED: Fentanyl 100 MCG/2 ML VIAL ONE (16:40)
[2020-06-27] MEDS ORDERED: Midazolam HCl 2 mg/2 ml Vial ONE (16:40)
--- NOTE | 2020-06-27 16:59 | PRG ---
DATE OF SERVICE: 06/27/2020 SUBJECTIVE: Ms. Rodriguez was recently admitted for ventricular fibrillation. She had LifeVest go off. She had ICD placed yesterday. The etiology to her current demise is unknown. There is concern for continued ischemia. OBJECTIVE: GENERAL: Patient is a pleasant female who is in no acute distress. The patient appears their stated age. VITAL SIGNS: Blood pressure 130/60, pulse 69, temperature 97.6 . NEUROLOGIC: The patient is alert and oriented x3 with no focal neurologic deficits. HEENT: Sclerae without icterus. Mouth has moist mucous membranes with normal pallor. NECK: No JVD. Carotid upstroke brisk. No bruits bilaterally. LUNGS: Clear to auscultation with unlabored respirations. BACK: No scoliosis or kyphosis. CARDIAC: Regular rate and rhythm with normal S1 and S2. No S3 or S4 noted. No significant rubs, murmurs, thrills, or gallops noted throughout the precordium. PMI is not displaced. There is no parasternal heave. ABDOMEN: Soft, nontender, nondistended. No peritoneal signs present. No hepatosplenomegaly. No abnormal striae. EXTREMITIES: 2+ femoral and 2+ dorsalis pedis pulses. No cyanosis, clubbing, or edema. SKIN: No gross abnormalities. PERTINENT LABORATORY DATA: Hemoglobin 10.8, hematocrit 31.9 creatinine 1.08. Magnesium level 2.2. IMPRESSION: 1. Ventricular fibrillation. 2. Coronary artery disease. 3. Status post bypass surgery. 4. Status post implantable cardioverter defibrillator. RECOMMENDATIONS: Ms. Rodriguez has had recent ICD implant. Given concern for underlying ischemia, I would recommend coronary angiography, possible PCI. I discussed the case in full detail with Ms. Rodriguez. Her risks include, but not limited to the following All questions answered. Given the above, the patient agreed to proceed with procedure. Further recommendations depending on the above. Job ID: [id number]
--- NOTE | 2020-06-27 17:51 | PDOC.EP ---
- Subjective Date: 06/27/20 Time: 08:00 Interval History: She has done well 1 day post ICD implant. No recurrent arrhythmia - Review of Systems Constitutional: denies: chills, fever, malaise, sweats, weakness, other Respiratory: denies: cough, dry, hemoptysis, pleuritic pain, shortness of breath, SOB with excertion, sputum, wheezing, other Cardiology: denies: chest pain, edema, heart racing, light headedness, paroxysmal noc. dyspnea, orthopnea, palpitations, passing out, pleuritic pain, pressure, swelling, other Gastrointestinal: denies: abdominal pain, constipation, diarrhea, hematochezia, melena, nausea, vomitting, other Musculoskeletal: denies: unstable gait, falls, neck pain, shoulder pain, arm pain, hand pain, leg pain, foot pain, other Neurological: denies: headache, vision changes, other - Objective Allergies/Adverse Reactions: Allergies Allergy/AdvReac Type Severity Reaction Status Date / Time Sulfa (Sulfonamide Allergy Verified 06/04/20 20:18 Antibiotics) Current Medications Acetaminophen (Acetaminophen 325 Mg Tab) 650 mg PO Q4H PRN PRN Reason: Headache/Fever/Mild Pain (1-3) Last Admin: 06/25/20 22:43 Dose: 650 mg Documented by: Acetaminophen/Codeine Phosphate (Acetaminophen/Codeine 30-300mg Tablet) 1 tab PO Q4H PRN PRN Reason: Mild Pain (1-3) Last Admin: 06/26/20 20:35 Dose: 1 tab Documented by: Acetaminophen/Codeine Phosphate (Acetaminophen/Codeine 30-300mg Tablet) 2 tab PO Q4H PRN PRN Reason: Moderate Pain (4-6) Hydrocodone Bitart/Acetaminophen (Hydrocodone/Acetaminophen 5/325 Mg Tablet) 1 tab PO Q4H PRN PRN Reason: Moderate Pain (4-6) Last Admin: 06/26/20 21:58 Dose: 1 tab Documented by: Amiodarone HCl (Amiodarone 200 Mg Tab) 400 mg PO BID [facility] Stop: 07/03/20 08:00 Last Admin: 06/27/20 09:22 Dose: 400 mg Documented by: Aspirin (Aspirin Chewable 81 Mg Tab) 81 mg PO DAILY [facility] Last Admin: 06/27/20 09:22 Dose: 81 mg Documented by: Bupropion HCl (Bupropion 100 Mg Sr Tab) 200 mg PO DAILY [facility] Last Admin: 06/27/20 09:22 Dose: 200 mg Documented by: Carvedilol (Carvedilol 6.25 Mg Tab) 6.25 mg PO BID-WM [facility] Last Admin: 06/27/20 07:43 Dose: 6.25 mg Documented by: Cephalexin (Cephalexin 250 Mg Cap) 500 mg PO Q8HR [facility] Stop: 07/03/20 22:01 Last Admin: 06/27/20 14:09 Dose: 500 mg Documented by: Clonidine (Clonidine 0.1 Mg Tab) 0.1 mg PO BIDPRN PRN PRN Reason: SBP > 160, use second Dextrose/Water (Dextrose 50% Abboject 50 Ml Syringe) 25 gm SLOW IVP PRN PRN PRN Reason: Hypoglycemia Folic Acid (Folic Acid 1 Mg Tab) 0.5 mg PO DAILY [facility] Last Admin: 06/27/20 09:23 Dose: 0.5 mg Documented by: Gabapentin (Gabapentin 300 Mg Cap) 600 mg PO TID [facility] Last Admin: 06/27/20 14:09 Dose: 600 mg Documented by: Glucagon (Glucagon 1 Mg/Ml Vial) 1 mg IM PRN PRN PRN Reason: Hypoglycemia Guaifenesin/Dextromethorphan (Guaifenesin Dm 100-10/5 Ml Udcup) 15 ml PO Q4H PRN PRN Reason: Cough Hydralazine HCl (Hydralazine 20 Mg/Ml Vial) 10 mg SLOW IVP Q6H PRN PRN Reason: SBP GREATER THAN 160 Promethazine HCl 12.5 mg/ (Sodium Chloride) 50.5 mls @ 202 mls/hr IVPB Q6H PRN PRN Reason: Nausea/vomiting, use second Dextrose/Water (D5w) 1,000 mls @ 0 mls/hr IV .Q0M PRN PRN Reason: Hypoglycemia Insulin Glargine 40 units/ (Miscellaneous Medication) 0.4 mls @ 0 mls/hr SC HS [facility] Last Admin: 06/26/20 20:34 Dose: 0.4 mls Documented by: Sodium Chloride (Normal Saline 0.9%) 1,000 mls @ 100 mls/hr IV .Q10H [facility] Last Admin: 06/27/20 11:13 Dose: 1,000 mls Documented by: Insulin Human Lispro (Humalog 300 Units/3 Ml Vial) 6 units SC TID-WM [facility] Last Admin: 06/27/20 12:53 Dose: Not Given Documented by: Labetalol HCl (Labetalol Hcl 100 Mg/20 Ml Vial) 20 mg SLOW IVP Q4H PRN PRN Reason: SBP > 160, use third Lamotrigine (Lamotrigine 100 Mg Tab) 200 mg PO DAILY [facility] Last Admin: 06/27/20 09:23 Dose: 200 mg Documented by: Miscellaneous Medication (Electrolyte Replacement Protoc 1 Each Each) 1 each FS ASDIR [facility] Ondansetron HCl (Ondansetron Pf 4 Mg/2 Ml Vial) 4 mg IVP Q6H PRN PRN Reason: Nausea/Vomiting, use 1st Pantoprazole Sodium (Pantoprazole 40 Mg Tab) 40 mg PO DAILY [facility] Last Admin: 06/27/20 09:23 Dose: 40 mg Documented by: Rosuvastatin Calcium (Rosuvastatin 20 Mg Tab) 20 mg PO HS [facility] Last Admin: 06/26/20 20:34 Dose: 20 mg Documented by: Sodium Chloride (Flush - Normal Saline 10 Ml Syringe) 10 ml IVF PRN PRN PRN Reason: Saline Flush Last Admin: 06/26/20 17:49 Dose: 10 ml Documented by: Trazodone HCl (Trazodone Hcl 50 Mg Tab) 100 mg PO HSPRN PRN PRN Reason: Insomnia Last Admin: 06/26/20 20:40 Dose: 100 mg Documented by: Vital Signs & Weight: Vital Signs Temp Pulse Resp BP Pulse Ox 06/27/20 15:27 97.9 F 69 16 130/60 96 06/27/20 11:15 98.6 F 68 16 125/60 95 06/27/20 07:35 98.1 F 69 16 113/55 L 95 Weight 174 lb I/O: I/O 06/26/20 06/27/20 06/28/20 06:59 06:59 06:59 Intake Total 1954.4 1485 Output Total 1000 300 Balance 954.4 1185 - Physical Exam General: alert & oriented x3, appears well, no apparent distress, speech clear, affect appropriate HEENT: mucus membranes moist, normocephaly Neck: negative: supple neck, midline trachea, no JVD/HJR, no masses, no bruit, no lymphadenopathy, no thromegaly, JVD/HJR, carotid upstroke, bruit, masses, adenopathy, thyromegaly, other Cardiology: regular rate and rhythm, no murmur, regular rate, regular rhythm, PMI nondisplaced Lungs: clear to auscultation, normal breath sounds, normal exam, no wheeze, rales, rhonchi, no wheezes, no rales, no rhonchi Neurology: grossly intact Abdomen: unremarkable, active bowel sounds, soft, non-tender, no masses, no pulsations/bruits, no hepatosplenomegaly, HJR negative Extremities: dry, strong pulses, warm Skin: groin sites stable, device site stable w/o swelling Musculoskeletal: normal range of motion, no pain, no fluid collection - Labs Result Diagrams: 06/26/20 04:11 06/26/20 04:11 - EKG Interpretation EKG shows: Sinus rhythm - Device Device: single, defibrillator Device Result: [employer] - Assessment/Plan Assessment/Plan: ASSESSMENT AND PLAN: Ms. Rodriguez is a pleasant 59-year-old woman with history of three-vessel coronary artery disease detected in the May, also noted to have [id number] left ventricular ejection fraction at that time. She underwent a bypass surgery and one day post bypass surgery, she had a short, nonsustained ventricular tachycardia spell, eventually due to high risk, she was discharged on LifeVest. She is returning after a LifeVest discharge. Interrogation of LifeVest clearly reveals ventricular fibrillation event, which was successfully terminated. She recovered without any need for resuscitation and no neurological damage noted either. There are also no acute ischemic concerns per Cardiology. PROBLEMS: 1. Episode of VF arrest. a. Requiring LifeVest defibrillation. b. History of nonsustained wide-complex tachycardia one day post bypass randolph rgery. 2. Ischemic cardiomyopathy. a. H/O unstable angina and abnormal stress test prompting left heart catheterization demonstrating three-vessel coronary artery disease in May 2020. b. Reduced LVEF 30% to 35% with severe multivessel disease by echo on 06/05/2020 and 06/08/2020 pre and post bypass surgery. c. Status post CABG x3 vessels 06/06/2020. 3. History of bipolar disorder. 4. Remote history of MRSA abscess. 5. History of smoking. 6. Diabetes. 7. History of hypertension. Hence she is at at high risk for recurrent ventricular arrhythmias we proceed with ICD implant. Continued on IV amiodarone, which likely could be tapered to p.o. tapering regimen. 06/27/20 Stable POD#1 post ICd implant. ICD check, CXR unremarkabhle. Plan to taper PO [facility]iod[facility] as [facility]pt[facility] Will need 1 week ABX prophylaxis to be completed.
[2020-06-27] MEDS ORDERED: Acetaminophen/Codeine 30-300mg Tablet PO PRN ×2 (18:07)
[2020-06-27] MEDS ORDERED: Sodium Chloride 0.9% 200 ML IV PRN (18:07)
[2020-06-27] MEDS ORDERED: Nitroglycerin 0.4 MG TAB (25 Tab Bottle) SL PRN (18:07)
[2020-06-27] MEDS ORDERED: HYDROcodone/Acetaminophen 5/325 mg Tablet ONE (19:22)
[2020-06-27] MEDS: Sodium Chloride 0.9% 1,000 ML IV SCH (21:08)
[2020-06-27] MEDS: Rosuvastatin 20 MG TAB PO SCH (21:08)
[2020-06-27] MEDS: Insulin Glargine 40 UNITS in Pre-Filled Syringe 1 EACH SC SCH (21:09)
[2020-06-27] MEDS: traZODone HCl 50 MG TAB PO PRN (21:21)
[2020-06-28] MEDS: Sodium Chloride 0.9% 1,000 ML IV SCH (03:22)
[2020-06-28] MEDS: Cephalexin 250 MG CAP PO SCH ×4 (05:15→20:51)
--- NOTE | 2020-06-28 07:51 | OP ---
DATE OF PROCEDURE: 06/27/2020 ADDENDUM: Addendum to recent angio. Ms. Rodriguez recently underwent coronary angiography. Upon engagement of the left subclavian artery, there appeared to be a dissection. The wire never fully entered into the subclavian. Initially, a J-tip 0.035 wire was used. This was then removed and replaced with a Wholey wire and would not pass. Injections suggested dissection. There did appear though to be flow down the [place]. The patient did have an appropriate brachial and radial pulse with O2 saturation of 93% to 94%. There was a slight elbow pain, but no other symptoms. No angina or arm pain or neurologic symptoms. Dr. Parker, her CV surgeon was consulted. Dr. Johnston was also present. Given no current symptoms, given appropriate saturation with a flow noted down the [place], it was decided to proceed with conservative therapy. Consideration of bypass in addition to a stent placement were considered, and no current symptoms, was deferred. She will be placed in the ICU overnight with close observation. Job ID: [id number]
[2020-06-28] MEDS: Carvedilol 6.25 MG TAB PO SCH ×2 (08:14→17:24)
[2020-06-28] MEDS: HumaLOG 300 UNITS/3 ML VIAL SC SCH ×3 (08:15→17:20)
[2020-06-28] MEDS: Aspirin Chewable 81 MG TAB PO SCH (08:38)
[2020-06-28] MEDS: Gabapentin 300 MG CAP PO SCH ×3 (08:38→20:51)
[2020-06-28] MEDS: lamoTRIgine 100 MG TAB PO SCH (08:38)
[2020-06-28] MEDS: Amiodarone 200 MG TAB PO SCH ×2 (08:39→20:50)
[2020-06-28] MEDS: Folic Acid 1 MG TAB PO SCH (08:39)
[2020-06-28] MEDS: Bupropion 100 MG SR TAB PO SCH (08:39)
[2020-06-28] MEDS: HYDROcodone/Acetaminophen 5/325 mg Tablet PO PRN ×3 (08:46→21:42)
[2020-06-28 10:15] LABS: Anion Gap 16 mmol/L (10-20); BUN (Urea Nitrogen) 13 mg/dL (9.8-20.1); Calc. Creatinine Clearance 79 mL/min (70-130); Calcium 8.8 mg/dL (7.8-10.44); Carbon Dioxide 19 mmol/L (22-29); Chloride 107 mmol/L (98-107); Estimated GFR-MDRD 58; Glucose 173 mg/dL (70-105); Potassium 4.8 mmol/L (3.5-5.1); Sodium 137 mmol/L (136-145)
[2020-06-28 10:23] LABS: Band 1 % (5-11); Eosinophils 15 % (0-10); Hemoglobin 10.6 g/dL (12.0-16.0); Lymphocytes 24 % (21-51); MDiff Complete? YES; Mean Corpuscular HGB CONC 33.4 g/dL (32.0-36.0); Mean Corpuscular Hemoglobin 32.4 pg (27.0-31.0); Mean Corpuscular Volume 96.9 fL (78.0-98.0); Mean Platelet Volume 9.9 fL (7.4-10.4); Monocytes 7 % (0-10); Neutrophil 52 % (42-75); Platelet Count 203 thou/uL (130-400); Platelet Morphology Comment Appears Adequate; Polychromasia SLIGHT = 2-3 cells (100X) (0-2/hpf); RBC Distribution Width 13.5 % (11.5-14.5); Red Blood Cell (RBC) Count 3.28 mill/uL (4.20-5.40); White Blood Cell (WBC) Count 10.5 thou/uL (4.8-10.8)
--- NOTE | 2020-06-28 14:28 | PRG ---
DATE OF SERVICE: 06/28/2020 SUBJECTIVE: Ms. Rodriguez is doing much better today. No current symptoms. No arm pain noted. Her pulse is palpable in the brachial and radial region. Her O2 saturation is 96%. She has not had any further dysrhythmias. She states she is ready to go home. OBJECTIVE: VITAL SIGNS: Blood pressure 130/71, pulse 98, O2 saturation 96. LUNGS: Clear to auscultation. HEART: Regular rate and rhythm. ABDOMEN: Soft, nontender, nondistended. EXTREMITIES: No edema. PERTINENT LABORATORY DATA: Hemoglobin 10.6, hematocrit 31.8. Creatinine 0.98. IMPRESSION: 1. Ventricular fibrillation status post ICD. 2. Coronary artery disease. 3. Status post bypass surgery. 4. Iatrogenic subclavian dissection. RECOMMENDATIONS: At this point, we will continue with conservative therapy. Ms. Rodriguez has no current symptoms including neurologic deficits, pulse deficits or angina. She has an appropriate pulse with appropriate O2 saturation. Discussed case with Dr. Jose Zelaya in addition to Dr. Parker. It was decided to continue with conservative therapy and proceed with a CT of the chest tomorrow. Otherwise continue current medical therapy. Job ID: [id number]
--- NOTE | 2020-06-28 15:56 | PDOC.EP ---
- Subjective Date: 06/28/20 Time: 08:00 Interval History: Pt underwent LHC this am. LSC dissection was detected. No new symptoms. ICD site is well. - Review of Systems Constitutional: denies: chills, fever, malaise, sweats, weakness, other Respiratory: denies: cough, dry, hemoptysis, pleuritic pain, shortness of breath, SOB with excertion, sputum, wheezing, other Cardiology: denies: chest pain, edema, heart racing, light headedness, paroxysmal noc. dyspnea, orthopnea, palpitations, passing out, pleuritic pain, pressure, swelling, other Musculoskeletal: denies: unstable gait, falls, neck pain, shoulder pain, arm pain, hand pain, leg pain, foot pain, other Neurological: denies: headache, vision changes, other - Objective Allergies/Adverse Reactions: Allergies Allergy/AdvReac Type Severity Reaction Status Date / Time Sulfa (Sulfonamide Allergy Verified 06/04/20 20:18 Antibiotics) Current Medications Acetaminophen (Acetaminophen 325 Mg Tab) 650 mg PO Q4H PRN PRN Reason: Headache/Fever/Mild Pain (1-3) Last Admin: 06/25/20 22:43 Dose: 650 mg Documented by: Acetaminophen/Codeine Phosphate (Acetaminophen/Codeine 30-300mg Tablet) 1 tab PO Q4H PRN PRN Reason: Mild Pain (1-3) Acetaminophen/Codeine Phosphate (Acetaminophen/Codeine 30-300mg Tablet) 2 tab PO Q4H PRN PRN Reason: Moderate Pain (4-6) Hydrocodone Bitart/Acetaminophen (Hydrocodone/Acetaminophen 5/325 Mg Tablet) 1 tab PO Q4H PRN PRN Reason: Moderate Pain (4-6) Last Admin: 06/28/20 08:46 Dose: 1 tab Documented by: Amiodarone HCl (Amiodarone 200 Mg Tab) 400 mg PO BID [facility] Stop: 07/03/20 08:00 Last Admin: 06/28/20 08:39 Dose: 400 mg Documented by: Aspirin (Aspirin Chewable 81 Mg Tab) 81 mg PO DAILY [facility] Last Admin: 06/28/20 08:38 Dose: 81 mg Documented by: Bupropion HCl (Bupropion 100 Mg Sr Tab) 200 mg PO DAILY [facility] Last Admin: 06/28/20 08:39 Dose: 200 mg Documented by: Carvedilol (Carvedilol 6.25 Mg Tab) 6.25 mg PO BID[facility] Last Admin: 06/28/20 08:14 Dose: 6.25 mg Documented by: Cephalexin (Cephalexin 250 Mg Cap) 500 mg PO Q8HR [facility] Stop: 07/03/20 22:01 Last Admin: 06/28/20 05:15 Dose: 500 mg Documented by: Clonidine (Clonidine 0.1 Mg Tab) 0.1 mg PO BIDPRN PRN PRN Reason: SBP > 160, use second Dextrose/Water (Dextrose 50% Abboject 50 Ml Syringe) 25 gm SLOW IVP PRN PRN PRN Reason: Hypoglycemia Folic Acid (Folic Acid 1 Mg Tab) 0.5 mg PO DAILY [facility] Last Admin: 06/28/20 08:39 Dose: 0.5 mg Documented by: Gabapentin (Gabapentin 300 Mg Cap) 600 mg PO TID [facility] Last Admin: 06/28/20 08:38 Dose: 600 mg Documented by: Glucagon (Glucagon 1 Mg/Ml Vial) 1 mg IM PRN PRN PRN Reason: Hypoglycemia Guaifenesin/Dextromethorphan (Guaifenesin Dm 100-10/5 Ml Udcup) 15 ml PO Q4H PRN PRN Reason: Cough Hydralazine HCl (Hydralazine 20 Mg/Ml Vial) 10 mg SLOW IVP Q6H PRN PRN Reason: SBP GREATER THAN 160 Promethazine HCl 12.5 mg/ (Sodium Chloride) 50.5 mls @ 202 mls/hr IVPB Q6H PRN PRN Reason: Nausea/vomiting, use second Dextrose/Water (D5w) 1,000 mls @ 0 mls/hr IV .Q0M PRN PRN Reason: Hypoglycemia Insulin Glargine 40 units/ (Miscellaneous Medication) 0.4 mls @ 0 mls/hr SC HS [facility] Last Admin: 06/27/20 21:09 Dose: 0.4 mls Documented by: Sodium Chloride (Normal Saline 0.9%) 200 mls @ 0 mls/hr IV ONE PRN PRN Reason: SBP < 90 Stop: 06/30/20 18:08 Insulin Human Lispro (Humalog 300 Units/3 Ml Vial) 6 units SC TID[facility] Last Admin: 06/28/20 11:44 Dose: 6 unit Documented by: Labetalol HCl (Labetalol Hcl 100 Mg/20 Ml Vial) 20 mg SLOW IVP Q4H PRN PRN Reason: SBP > 160, use third Lamotrigine (Lamotrigine 100 Mg Tab) 200 mg PO DAILY [facility] Last Admin: 06/28/20 08:38 Dose: 200 mg Documented by: Miscellaneous Medication (Electrolyte Replacement Protoc 1 Each Each) 1 each FS ASDIR [facility] Nitroglycerin (Nitroglycerin 0.4 Mg Tab (25 Tab Bottle)) 0.4 mg SL Q5MIN PRN PRN Reason: Chest Pain Ondansetron HCl (Ondansetron Pf 4 Mg/2 Ml Vial) 4 mg IVP Q6H PRN PRN Reason: Nausea/Vomiting, use 1st Pantoprazole Sodium (Pantoprazole 40 Mg Tab) 40 mg PO DAILY [facility] Last Admin: 06/28/20 08:39 Dose: 40 mg Documented by: Rosuvastatin Calcium (Rosuvastatin 20 Mg Tab) 20 mg PO HS [facility] Last Admin: 06/27/20 21:08 Dose: 20 mg Documented by: Sodium Chloride (Flush - Normal Saline 10 Ml Syringe) 10 ml IVF PRN PRN PRN Reason: Saline Flush Last Admin: 06/26/20 17:49 Dose: 10 ml Documented by: Trazodone HCl (Trazodone Hcl 50 Mg Tab) 100 mg PO HSPRN PRN PRN Reason: Insomnia Last Admin: 06/27/20 21:21 Dose: 100 mg Documented by: Vital Signs & Weight: Vital Signs Temp BP Pulse Ox 06/28/20 08:14 130/71 06/28/20 08:00 98 06/28/20 04:00 98.8 F Weight 174 lb 2.643 oz I/O: I/O 06/27/20 06/28/20 06/29/20 06:59 06:59 06:59 Intake Total 1485 1688 120 Output Total 300 900 Balance 1185 788 120 - Physical Exam General: alert & oriented x3, appears well HEENT: normocephaly Neck: no JVD/HJR, no masses Cardiology: regular rate and rhythm, no murmur, regular rate, regular rhythm, PMI nondisplaced Lungs: clear to auscultation, no wheeze, rales, rhonchi Neurology: grossly intact Abdomen: active bowel sounds, soft Extremities: warm Skin: device site stable w/o swelling Musculoskeletal: no pain - Labs Result Diagrams: 06/28/20 09:49 06/28/20 09:49 - EKG Interpretation EKG Method: Telemetry EKG shows: Sinus rhythm - Device Device: single, defibrillator Device Result: [employer] - Assessment/Plan Assessment/Plan: ASSESSMENT AND PLAN: Ms. Rodriguez is a pleasant 59-year-old woman with history of three-vessel coronary artery disease detected in the May, also noted to have [id number] left ventricular ejection fraction at that time. She underwent a bypass surgery and one day post bypass surgery, she had a short, nonsustained ventricular tachycardia spell, eventually due to high risk, she was discharged on LifeVest. She is returning after a LifeVest discharge. Interrogation of LifeVest clearly reveals ventricular fibrillation event, which was successfully terminated. She recovered without any need for resuscitation and no neurological damage noted either. There are also no acute ischemic concerns per Cardiology. PROBLEMS: 1. Episode of VF arrest. a. Requiring LifeVest defibrillation. b. History of nonsustained wide-complex tachycardia one day post bypass surgery. 2. Ischemic cardiomyopathy. a. H/O unstable angina and abnormal stress test prompting left heart catheterization demonstrating three-vessel coronary artery disease in May 2020. b. Reduced LVEF 30% to 35% with severe multivessel disease by echo on 06/05/2020 and 06/08/2020 pre and post bypass surgery. c. Status post CABG x3 vessels 06/06/2020. 3. History of bipolar disorder. 4. Remote history of MRSA abscess. 5. History of smoking. 6. Diabetes. 7. History of hypertension. Hence she is at at high risk for recurrent ventricular arrhythmias we proceed with ICD obfrdie53/12/20. Continued on IV amiodarone, which likely could be tapered to p.o. tapering regimen. 06/27/20 Stable POD#1 post ICd implant. ICD check, CXR unremarkabhle. Plan to taper PO amiodarone as outpt. 06/28/20 Stable postop day#2. Underwent [facility] this am. LSC arterial dissection detected.on Conservative therapy. No new EP recommendation. Home on ami taper and PO ABX, 5 more days. Wound check in 2 weeks. EP would sign off.
--- NOTE | 2020-06-28 17:28 | EKG ---
Test Reason : Blood Pressure : / mmHG Vent. Rate : 068 BPM Atrial Rate : 068 BPM P-R Int : 172 ms QRS Dur : 100 ms QT Int : 468 ms P-R-T Axes : 061 032 155 degrees QTc Int : 497 ms Normal sinus rhythm Nonspecific ST and T wave abnormality Prolonged QT Abnormal ECG When compared with ECG of 26-JUN-2020 12:46, (Unconfirmed) QT has lengthened Confirmed by DR. Jaime JOSEPH ([id number]) on 06/28/2020 5:27:58 PM Referred By: [facility] Confirmed By:DR. Jaime JOSEPH
--- NOTE | 2020-06-28 18:22 | PDOC.HOSPP ---
- Subjective Encounter Date: 06/28/20 Encounter Time: 18:15 Subjective: f/u s/p VF arrest with LifeVest discharge terminating the event. s/p LHC this am with LSA dissection during procedure but being observed post-op. No current symptoms or complaints with stable vital signs. - Objective Vital Signs & Weight: Vital Signs (12 hours) Temp BP Pulse Ox 06/28/20 17:24 150/70 H 06/28/20 16:00 97.9 F 06/28/20 12:00 98.1 F 06/28/20 08:14 130/71 06/28/20 08:00 99.1 F 98 Weight Weight 174 lb 2.643 oz Most Recent Monitor Data Heart Rate from ECG 68 NIBP 150/70 NIBP BP-Mean 96 Respiration from ECG 14 SpO2 96 I&O: 06/27/20 06/28/20 06/29/20 06:59 06:59 06:59 Intake Total 1485 1688 840 Output Total 300 900 950 Balance 1185 788 -110 Result Diagrams: 06/28/20 09:49 06/28/20 09:49 Additional Labs: Accuchecks 06/28/20 06/28/20 06/28/20 17:08 11:37 05:19 POC Glucose 102 H 137 H 146 H 06/27/20 21:10 POC Glucose 184 H Microbiology 06/24/20 07:42 Urine clean catch Urine Culture - Final NO GROWTH AT 48 HOURS Laboratory Tests 06/23/20 06/24/20 06/24/20 21:35 00:26 03:46 Hgb 10.3 L 10.4 L SARS-CoV-2 (PCR) Not Detected 06/25/20 06/26/20 03:35 04:11 Hgb 11.0 L 10.8 L SARS-CoV-2 (PCR) EKG Reviewed by me: Yes (Tele - SR) Hospitalist ROS - Medication Medications: Active Medications Generic Name Dose Route Start Last Admin Trade Name Freq PRN Reason Stop Dose Admin Acetaminophen 650 mg 06/24/20 01:19 06/25/20 22:43 Acetaminophen 325 Mg Tab PO 650 mg Q4H PRN Administration Headache/Fever/Mild Pain (1-3) Hydrocodone Bitart/Acetaminophen 1 tab 06/24/20 01:19 06/28/20 17:42 Hydrocodone/Acetaminophen 5/325 Mg Tablet PO 1 tab Q4H PRN Administration Moderate Pain (4-6) Amiodarone HCl 400 mg 06/26/20 21:00 06/28/20 08:39 Amiodarone 200 Mg Tab PO 07/03/20 08:00 400 mg BID [facility] Administration Aspirin 81 mg 06/24/20 09:00 06/28/20 08:38 Aspirin Chewable 81 Mg Tab PO 81 mg DAILY [facility] Administration Bupropion HCl 200 mg 06/24/20 09:00 06/28/20 08:39 Bupropion 100 Mg Sr Tab PO 200 mg DAILY [facility] Administration Carvedilol 6.25 mg 06/24/20 08:00 06/28/20 17:24 Carvedilol 6.25 Mg Tab PO 6.25 mg BID-WM [facility] Administration Cephalexin 500 mg 06/27/20 06:00 06/28/20 17:43 Cephalexin 250 Mg Cap PO 07/03/20 22:01 500 mg Q8HR [facility] Administration Folic Acid 0.5 mg 06/24/20 09:00 06/28/20 08:39 Folic Acid 1 Mg Tab PO 0.5 mg DAILY [facility] Administration Gabapentin 600 mg 06/24/20 09:00 06/28/20 17:26 Gabapentin 300 Mg Cap PO 600 mg TID [facility] Administration Insulin Glargine 40 units/ 0.4 mls @ 0 mls/hr 06/25/20 21:00 06/27/20 21:09 Miscellaneous Medication SC 0.4 mls HS [facility] Administration As Directed Insulin Human Lispro 6 units 06/25/20 17:00 06/28/20 17:20 Humalog 300 Units/3 Ml Vial SC 6 unit TID-WM [facility] Administration Lamotrigine 200 mg 06/24/20 09:00 06/28/20 08:38 Lamotrigine 100 Mg Tab PO 200 mg DAILY [facility] Administration Pantoprazole Sodium 40 mg 06/24/20 09:00 06/28/20 08:39 Pantoprazole 40 Mg Tab PO 40 mg DAILY [facility] Administration Rosuvastatin Calcium 20 mg 06/24/20 21:00 06/27/20 21:08 Rosuvastatin 20 Mg Tab PO 20 mg HS [facility] Administration Sodium Chloride 10 ml 06/26/20 13:30 06/26/20 17:49 Flush - Normal Saline 10 Ml Syringe IVF 10 ml PRN PRN Administration Saline Flush Trazodone HCl 100 mg 06/24/20 01:31 06/27/20 21:21 Trazodone Hcl 50 Mg Tab PO 100 mg HSPRN PRN Administration Insomnia - Exam General Appearance: NAD, awake alert Eye: PERRL, anicteric sclera ENT: normocephalic atraumatic, no oropharyngeal lesions Neck: supple, symmetric, no JVD, no thyromegaly, no lymphadenopathy Heart: RRR, no gallops, no rubs, normal peripheral pulses Heart - other findings: S1, S2 Respiratory: CTAB, no wheezes, no rales, no ronchi, normal chest expansion Gastrointestinal: soft, non-tender, non-distended, normal bowel sounds, no pa lpable masses Extremities: no cyanosis, no clubbing, no edema Skin: normal turgor, no lesions Neurological: cranial nerve grossly intact, no new deficit Musculoskeletal: normal tone, normal strength, no muscle wasting Psychiatric: normal affect, A&O x 3 Hosp A/P (1) Ventricular fibrillation Code(s): I49.01 - VENTRICULAR FIBRILLATION Status: Acute Plan: s/p LifeVest discharge, s/p ICD implant 06/27/20, continue Amiodarone/Coreg/ASA (2) Dissection of left subclavian artery Code(s): I77.79 - DISSECTION OF OTHER SPECIFIED ARTERY Status: Acute Plan: s/p LHC, conservative mgmt, CT chest/angio in am (3) life vest shock Status: Acute (4) CAD (coronary artery disease) Code(s): I25.10 - ATHSCL HEART DISEASE OF [place] CORONARY ARTERY W/O ANG PCTRS Status: Chronic Qualifiers: Coronary Disease-Associated Artery/Lesion type: bypass graft [place] vs. transplanted heart: three affiliated heart Plan: Med mgmt - Plan out of bed/ambulate, DVT proph w/SCDs Stable currently Continue close observation Continue ASA/Amiodarone Continue Keflex OOB/ambulate Likely home in 24h if remains stable
[2020-06-28] MEDS: Insulin Glargine 40 UNITS in Pre-Filled Syringe 1 EACH SC SCH (20:51)
[2020-06-28] MEDS: Rosuvastatin 20 MG TAB PO SCH (20:51)
[2020-06-28] MEDS: traZODone HCl 50 MG TAB PO PRN (21:42)
[2020-06-29 04:51] LABS: #Basophils 0.1 thou/uL (0.0-0.2); #Eosinphils 1.9 thou/uL (0.0-0.7); #Lymphocytes 2.1 thou/uL (1.20-3.40); #Monocytes 0.6 thou/uL (0.11-0.59); #Neutrophils 4.6 thou/uL (1.40-6.50); %Basophils 0.6 % (0.0-1.0); %Eosinophils 20.7 % (0.0-10.0); %Lymphocytes 22.1 % (21.0-51.0); %Monocytes 6.9 % (0.0-10.0); %Neutrophils 49.8 % (42.0-75.0); Hemoglobin 10.6 g/dL (12.0-16.0); Mean Corpuscular HGB CONC 35.2 g/dL (32.0-36.0); Mean Corpuscular Hemoglobin 33.9 pg (27.0-31.0); Mean Corpuscular Volume 96.3 fL (78.0-98.0); Mean Platelet Volume 10.3 fL (7.4-10.4); Platelet Count 141 thou/uL (130-400); Platelet Morphology Comment Appears Adequate; RBC Distribution Width 13.4 % (11.5-14.5); Red Blood Cell (RBC) Count 3.13 mill/uL (4.20-5.40); White Blood Cell (WBC) Count 9.3 thou/uL (4.8-10.8)
[2020-06-29] MEDS: Cephalexin 250 MG CAP PO SCH (05:53)
[2020-06-29] MEDS: HumaLOG 300 UNITS/3 ML VIAL SC SCH ×2 (07:43→12:13)
[2020-06-29] MEDS: Carvedilol 6.25 MG TAB PO SCH (07:43)
[2020-06-29 07:47] VITALS: BP 131/67
[2020-06-29 08:09] VITALS: TEMP 97.9
[2020-06-29] MEDS: Bupropion 100 MG SR TAB PO SCH (08:36)
[2020-06-29] MEDS: Gabapentin 300 MG CAP PO SCH (08:36)
[2020-06-29] MEDS: Folic Acid 1 MG TAB PO SCH (08:36)
[2020-06-29] MEDS: Aspirin Chewable 81 MG TAB PO SCH (08:36)
[2020-06-29] MEDS: lamoTRIgine 100 MG TAB PO SCH (08:37)
[2020-06-29] MEDS: Amiodarone 200 MG TAB PO SCH (08:37)
[2020-06-29] MEDS: HYDROcodone/Acetaminophen 5/325 mg Tablet PO PRN (08:39)
--- NOTE | 2020-06-29 08:54 | CT ---
CT ANGIOGRAM THORAX WITH CONTRAST: DATE: 06/29/2020 HISTORY: 59-year-old female. Clinical concern for left subclavian artery dissection. TECHNIQUE: IV injection of iodinated contrast. Scan acquisition timing attempted to coincide with iodinated contrast bolus reaching maximal density in aortic arch. 3-D MIP reconstructions. FINDINGS: The left subclavian artery is diffusely slightly small in caliber compared to the normal caliber cont ralateral right subclavian artery. There is no evidence of dissection. Left vertebral artery originates from aortic arch rather than from the left subclavian artery, an miles tomical variant. No high-grade short segment focal acquired stenosis, aneurysm, or dissection identified involving bra chiocephalic artery, bilateral subclavian arteries, bilateral common carotid arteries, and the proximal portions of bilateral codominant vertebral arteries, or thoracic aorta. Sternotomy wires. Small bilateral pleural effusions. No cardiomegaly. Multiple mildly enlarged noncalcified mediastinal and bilateral hilar lymph nodes, nonspecific. Mild dependent passive atelectasis in the bilateral lower lobes adjacent to the small pleural effusio ns. No thrombus in pulmonary trunk or left and right main pulmonary arteries. Not enough IV contrast in branches of pulmonary arteries to the right for peripheral PE. Mild, faint groundglass changes in the lungs, nonspecific. Perhaps minimal interstitial edema. The subsegmental atelectasis at lingula. Left subclavian single lead AICD. IMPRESSION: 1) no evidence of subclavian artery dissection 2) small bilateral pleural effusions. 3) questionable mild pulmonary interstitial edema.
[2020-06-29] MEDS ORDERED: Iopamidol-370 76% 500 ML 1 ML ONE (09:18)
--- NOTE | 2020-06-29 15:59 | PRG ---
DATE OF SERVICE: 06/29/2020 SUBJECTIVE: Ms. Rodriguez is doing very well. No current complaints. No chest pain, pressure, or other associated symptoms. She had a CT scan of her chest today, which showed a patent left subclavian artery. No evidence of dissection is noted. OBJECTIVE: VITAL SIGNS: Blood pressure 120/70, pulse 70, and respirations 20. LUNGS: Clear to auscultation. HEART: Regular rate and rhythm. ABDOMEN: Soft, nontender, and nondistended. EXTREMITIES: No edema. IMPRESSION: 1. Coronary artery disease. 2. Ventricular fibrillation status post implantable cardiac defibrillator. 3. Iatrogenic subclavian artery dissection. 4. Cardiomyopathy. RECOMMENDATIONS: Ms. Rodriguez is currently doing well. Her CT scan confirmed no dissection. She likely had a flap in a retrograde fashion that closed. From my standpoint, I have no further recommendations. We would recommend amiodarone therapy 400 mg one p.o. b.i.d. for 3 days only, then decrease to 400 mg one p.o. q.a.m. with 0 refills. Plan is to follow Ms. Rodriguez as an outpatient. Job ID: [id number]
--- NOTE | 2020-06-30 14:25 | DIS ---
DATE OF ADMISSION: 06/24/2020 DATE OF DISCHARGE: 06/29/2020 DISCHARGE DIAGNOSES: 1. Ventricular fibrillation cardiac arrest, status post LifeVest discharge. 2. Status post AICD implant, 06/27/2020. 3. Status post dissection of the left subclavian artery with repeat CT angio negative on 06/29/2020. 4. Coronary artery disease. 5. Ischemic cardiomyopathy with ejection fraction of 25% to 30%. 6. Diabetes mellitus, type 2. 7. Chronic combined systolic and diastolic congestive heart failure, compensated. CONSULTATIONS: 1. Dr. Mcfadden with Cardiology Service. 2. Dr. Almendarez with Electrophysiology Service. PERTINENT LABORATORY AND X-RAY FINDINGS: Troponin I negative x2. BNP 473. CBC showed a hemoglobin ranging between 10.3 to 11.0. COVID-19 PCR not detected on 06/24/2020. Urine culture dated 06/24/2020, showed no growth at 48 hours. Portable chest x-ray dated 06/23/2020, showed mild pulmonary vascular prominence. Left heart catheterization dated 06/28/2020, showed iatrogenic dissection of the left subclavian artery. Patent graft to RCA and OMB and TOLLIVER to LAD. CT angiogram of the chest dated 06/24/2020, showed no acute pulmonary embolus. Bibasilar and lingular atelectasis. Mild emphysematous changes bilaterally. Changes consistent with previous coronary artery bypass grafting. 2D transthoracic echocardiogram dated 06/24/2020, showed ejection fraction of 25% to 30% with diastolic dysfunction. Mild to moderate mitral regurgitation. [id number] tricuspid regurgitation. CT angiogram of the chest dated 06/29/2020, showed no evidence of subclavian artery dissection. Mild interstitial edema. HOSPITAL COURSE: The patient was initially admitted after presenting status post syncopal episode after an apparent LifeVest discharge showing ventricular fibrillation. The patient with recent coronary artery bypass grafting and depressed ejection fraction in the 30% range; discharged recently with LifeVest, which apparently discharged while the patient was at home. The patient had brief loss of consciousness with return of spontaneous circulation, status post LifeVest discharge. The patient underwent evaluation by the Cardiology Service with 2D transthoracic echocardiogram showing depressed ejection fraction of 25% to 30% and diastolic dysfunction. The patient underwent evaluation by the Electrophysiology Service with subsequent AICD placement on 06/27/2020. The patient was initiated on amiodarone with current dosing of 400 mg b.i.d. The patient remained clinically stable during the hospital course; however, during the procedure for left heart catheterization showing overall patent bypass grafts, there was concern for potential left subclavian artery dissection during the procedure. The patient was held under observation for approximately [address] angiogram showing no evidence of dissection and stable flow distally. The patient overall remained clinically stable during the hospital course and ready for discharge on 06/29/2020. I have examined the patient at the time of discharge and discussed followup instructions. The patient verbalized understanding and agreement, ready for discharge on 06/29/2020. DISCHARGE MEDICATIONS: 1. Biotin 0.5 mg p.o. daily. 2. Bupropion extended release 200 mg p.o. daily. 3. Florastor 250 mg p.o. daily. 4. Folic acid 0.4 mg p.o. daily. 5. Gabapentin 600 mg p.o. t.i.d. 6. Humalog 6 units subcutaneously t.i.d. with meals. 7. Lamotrigine 200 mg p.o. daily. 8. Glargine insulin 40 units subcutaneously at bedtime. 9. Omeprazole 40 mg p.o. daily. 10. Trazodone 200 mg p.o. daily p.r.n. 11. Enteric-coated aspirin 81 mg p.o. daily. 12. Amiodarone 400 mg p.o. b.i.d. x3 days, followed by 400 mg p.o. daily. 13. Carvedilol 3.125 mg p.o. b.i.d. 14. Crestor 20 mg p.o. at bedtime. 15. Keflex 500 mg p.o. t.i.d. x7 days. FOLLOWUP: The patient may follow up with [facility] on 07/03/2020 at 10:45 a.m. The patient will follow up with Dr. Isidro Mcfadden on 07/13/2020 at 11:00 a.m. The patient will follow up with Dr. Parker on 07/04/2020 at 3:00 p.m. The patient may follow up with Dr. Almendarez with Electrophysiology Service and to call his office for appointment time and date. CONDITION ON DISCHARGE: Stable. ACTIVITY: Ad-hellen. DIET: ADA and heart healthy. CODE STATUS: Full. DISPOSITION: To home on 06/29/2020. TIME SPENT: Total time preparing and coordinating discharge is 35 minutes. Job ID: [id number]
--- NOTE | 2020-07-01 11:02 | EKG ---
Test Reason : Blood Pressure : / mmHG Vent. Rate : 080 BPM Atrial Rate : 080 BPM P-R Int : 166 ms QRS Dur : 100 ms QT Int : 350 ms P-R-T Axes : 054 013 208 degrees QTc Int : 403 ms Normal sinus rhythm Possible Left atrial enlargement T wave abnormality, consider inferior ischemia T wave abnormality, consider anterolateral ischemia Abnormal ECG Confirmed by TONY CUNNINGHAM DO ([id number]), digital editor JULISA ROSENTHAL ([id number]) on 07/01/2020 11:01:24 AM Referred By: Confirmed By:TONY CUNNINGHAM DO
== END 2020-06-29 13:00 | disposition home or self-care (01) | DRG 224 ==
LOC: ERS 21:04 → IMCU/EMU 06-24 00:49 → 2NO 06-25 14:57 → CCU 06-27 19:55
PROVIDERS: ADMIT Internal Medicine; ATTEND Internal Medicine
PROC: 0JH608Z Insertion of Defibrillator Generator into Chest Subcutaneous Tissue and Fascia, Open Approach (ICD-10-PCS; 2020-06-26)
PROC: 02HK3KZ Insertion of Defibrillator Lead into Right Ventricle, Percutaneous Approach (ICD-10-PCS; 2020-06-26)
PROC: B2111ZZ Fluoroscopy of Multiple Coronary Arteries using Low Osmolar Contrast (ICD-10-PCS; principal; 2020-06-27)
PROC: B2181ZZ Fluoroscopy of Left Internal Mammary Bypass Graft using Low Osmolar Contrast (ICD-10-PCS; 2020-06-27)
PROC: 4A023N7 Measurement of Cardiac Sampling and Pressure, Left Heart, Percutaneous Approach (ICD-10-PCS; 2020-06-27)
DX: I49.01 Ventricular fibrillation (principal); I77.79 Dissection of other specified artery; I50.42 Chronic combined systolic (congestive) and diastolic (congestive) heart failure; E11.9 Type 2 diabetes mellitus without complications; F31.9 Bipolar disorder, unspecified; I25.10 Atherosclerotic heart disease of native coronary artery without angina pectoris; F43.10 Post-traumatic stress disorder, unspecified; R55 Syncope and collapse; E78.5 Hyperlipidemia, unspecified; I25.5 Ischemic cardiomyopathy; I11.0 Hypertensive heart disease with heart failure; Z98.51 Tubal ligation status; Z90.49 Acquired absence of other specified parts of digestive tract; Z79.899 Other long term (current) drug therapy; Z88.2 Allergy status to sulfonamides; Z79.82 Long term (current) use of aspirin; Z95.1 Presence of aortocoronary bypass graft; Z20.828 Contact with and (suspected) exposure to other viral communicable diseases
CPT/HCPCS: 33249; 36216; 36225; 36415; 36416; 71045; 71275; 76942; 80048; 80053; 81001; 83735; 83880; 84484; 85025; 87086; 87635; 93005; 93010; 93306; 93459; 94760; 96374; 99152; 99153; C1777; C1786; J0282; J0690; J1580; J1644; J1650; J1815; J1940; J2001; J2250; J2704; J3010; J3475; J3490; J7070; Q9967; U0003

== ENCOUNTER 2020-08-18 11:12 | Inpatient (IN) | payer MEDICARE ==
[2020-08-18] MEDS ORDERED: PROVENTIL INHALER 6.7 G (200 INHALATIONS) ONE (12:11)
[2020-08-18] MEDS ORDERED: Fentanyl 100 MCG/2 ML VIAL ONE (12:11)
[2020-08-18] MEDS ORDERED: Ondansetron PF 4 MG/2 ML Vial ONE ×2 (12:11→12:12)
[2020-08-18] MEDS ORDERED: Albuterol 200 PUFF (6.7GM INHALER) ONE ×2 (12:14→13:17)
--- NOTE | 2020-08-18 12:18 | RAD ---
SINGLE VIEW CHEST: Date: 08/18/2020 COMPARISON: 06/26/2020. HISTORY: Left arm pain. Shortness of breath. FINDINGS: Single view of the chest shows normal sized cardiomediastinal silhouette. The pacemaker is unchanged in position. The patient is status post sternotomy. Diffuse increased interstitial lung markings are present. Bilateral perihilar fullness is seen, which may represent volume overload and pulmonary mindy a. No pleural effusion is seen. Degenerative changes are seen in the spine. IMPRESSION: Perihilar opacities extending into the interstitium may represent pulmonary edema or infiltrates. POS: TARYNA
[2020-08-18 12:36] LABS: #Basophils 0.1 thou/uL (0.0-0.2); #Eosinphils 0.2 thou/uL (0.0-0.7); #Lymphocytes 1.6 thou/uL (1.20-3.40); #Monocytes 0.6 thou/uL (0.11-0.59); #Neutrophils 9.9 thou/uL (1.40-6.50); %Basophils 0.6 % (0.0-1.0); %Eosinophils 1.6 % (0.0-10.0); %Lymphocytes 12.9 % (21.0-51.0); %Monocytes 4.7 % (0.0-10.0); %Neutrophils 80.1 % (42.0-75.0); Hemoglobin 13.2 g/dL (12.0-16.0); Mean Corpuscular HGB CONC 32.3 g/dL (32.0-36.0); Mean Corpuscular Hemoglobin 30.5 pg (27.0-31.0); Mean Corpuscular Volume 94.4 fL (78.0-98.0); Mean Platelet Volume 9.7 fL (7.4-10.4); Platelet Count 195 thou/uL (130-400); RBC Distribution Width 14.1 % (11.5-14.5); Red Blood Cell (RBC) Count 4.33 mill/uL (4.20-5.40); White Blood Cell (WBC) Count 12.4 thou/uL (4.8-10.8)
[2020-08-18 12:57] LABS: ALT (SGPT) 15 U/L (8-55); AST (SGOT) 32 U/L (5-34); Alkaline Phosphatase 110 U/L (40-110); Anion Gap 17 mmol/L (10-20); BUN (Urea Nitrogen) 24 mg/dL (9.8-20.1); Bilirubin, Total 0.5 mg/dL (0.2-1.2); Calc. Creatinine Clearance 0 mL/min (70-130); Calcium 9.1 mg/dL (7.8-10.44); Carbon Dioxide 23 mmol/L (22-29); Chloride 101 mmol/L (98-107); Globulin 3.2 g/dL (2.4-3.5); Glucose 248 mg/dL (70-105); Potassium 4.2 mmol/L (3.5-5.1); Protein, Total 7.2 g/dL (6.0-8.3); Sodium 137 mmol/L (136-145)
--- NOTE | 2020-08-18 12:57 | ULT ---
EXAM: Left upper extremity venous Doppler HISTORY: Left upper extremity pain. FINDINGS: Grayscale, color-flow, Doppler evaluation, spectral analysis of the left upper extremity venous struc tures is performed with 2-D imaging. Normal flow seen in the left subclavian vein. There is normal luminal compressibility and flow in the left internal jugular, axillary, and brachial veins. There is also normal flow and lumen compressibility involving the left radial and ulnar veins. There is normal luminal compressibility and flow seen in the visualized left upper extremity basilic and cephalic veins. Cephalic vein is very small in size. The left basilic vein in the lower arm is unable to be visualized. IMPRESSION: No evidence of a deep vein thrombosis in the visualized deep venous structures left upper extremity.
[2020-08-18 13:32] LABS: CKMB 21.3 ng/mL (0-6.6)
[2020-08-18] MEDS ORDERED: cefTRIAXone\\ROCEPHIN 2 GM VIAL ONE (13:32)
[2020-08-18] MEDS ORDERED: Enoxaparin Sodium 80 MG/0.8 ML SYRINGE ONE (13:33)
[2020-08-18] MEDS ORDERED: Sodium Chloride 0.9% 100 ML ONE (13:33)
[2020-08-18 14:59] LABS: SARS-CoV-2 NAA Rapid Test Not Detected (NotDetected)
[2020-08-18] MEDS ORDERED: Nitroglycerin 50 MG/250 ML BOT 250 ML ONE (15:56)
[2020-08-18 16:11] LABS: Troponin I 2.336 ng/mL (< 0.028)
[2020-08-18] MEDS ORDERED: Clopidogrel Bisulfate 75 MG TAB ONE ×2 (16:23)
[2020-08-18 17:28] VITALS: BMI 26.1
[2020-08-18] MEDS ORDERED: Ondansetron ODT 4 MG TAB PO PRN (17:52)
[2020-08-18] MEDS ORDERED: Bisacodyl 5 MG TAB PO PRN (17:52)
[2020-08-18] MEDS ORDERED: Nitroglycerin 50 MG/250 ML BOT 250 ML IVPB SCH (18:00)
[2020-08-18 19:02] LABS: Troponin I 4.158 ng/mL (< 0.028)
[2020-08-18] MEDS ORDERED: Lorazepam 0.5 MG TAB PO SCH (19:45)
[2020-08-18] MEDS: Famotidine 20 MG TAB PO SCH (20:00)
[2020-08-18] MEDS: Rosuvastatin 20 MG TAB PO SCH (20:00)
[2020-08-18] MEDS: Nicotine 14 MG PATCH TD SCH (20:01)
[2020-08-18] MEDS: Amiodarone 200 MG TAB PO SCH (20:01)
[2020-08-18] MEDS ORDERED: Sodium Chloride 0.65% Nasal 44 ML BOT EA NARE PRN (20:20)
[2020-08-18] MEDS: Acetaminophen 325 MG TAB PO PRN (20:54)
--- NOTE | 2020-08-18 23:55 | HP ---
CONSULTATIONS CALLED: Dr. Amador Calvert, Cardiology. REASON FOR ADMISSION: My chest hurts. PRIMARY VINYL DIPPER: Dr. Mcfadden. HISTORY OF PRESENT ILLNESS: This is a very pleasant 59-year-old female with recent past medical history of congestive heart failure, ejection fraction of 25% to 30%, coronary artery disease, and CABG done in May 2020, history of extensive IV drug abuse, tobacco abuse, benign essential hypertension, diabetes mellitus type 2, presents to the emergency room with complaints of recurrent left arm pain that actually started three days back, more so in the last 24 hours, unable to tolerate the same, presented to the emergency room. The patient in the recent past had a complicated course of coronary artery disease and subsequently had a CABG done in May 2020, followed by a diagnosis of severe cardiomyopathy, ejection fraction of 25% to 30%, requiring AICD placement. The patient on current presentation as explained above, was evaluated and has been started on a nitroglycerin drip with eventual consultation of Cardiology Services, who advised the patient to be admitted to intensive care unit. The patient also given one therapeutic shot of Lovenox. The patient at this point of time, except for above complaints, does not have any other complaints of shortness of breath, abdominal pain, fever, rigors, chills, nausea, vomiting, diaphoresis, blurring of vision, tingling, numbness, burning micturition, constipation, claudication, anxiety, depression, hematuria, hematochezia, cough, expectoration, syncope, seizures, PND or orthopnea. The patient's initial evaluation in the ER shows evidence of elevated troponins along with some atypical EKG changes. Cardiology was consulted from the emergency room. PAST MEDICAL HISTORY: 1. Coronary artery disease. 2. Diabetes mellitus type 2. 3. Systolic congestive heart failure. 4. Bipolar disorder. 5. Benign essential hypertension. 6. Hyperlipidemia. 7. History of IV drug abuse. ALLERGIES: SULFA. PAST SURGICAL HISTORY: CABG done in May 2020, along with history of , tubal ligation, right foot surgery, tonsillectomy, cholecystectomy. FAMILY HISTORY: Strong family history of coronary artery disease without any history of premature events. SOCIAL HISTORY: The patient smokes a pack of cigarettes a day. Socially drinks, abuses drugs in the remote past. MEDICATIONS: 1. Amiodarone 400 mg twice daily. 2. Lamotrigine 200 mg daily. 3. Biotin 0.5 mg daily. 4. Probiotics 250 mg daily. 5. Folic acid 0.4 mg daily. 6. Neurontin 600 mg three times daily. 7. Bupropion 200 mg daily. 8. Trazodone 200 mg as needed. 9. Insulin glargine 40 units at bedtime. 10. Humalog for postprandial blood sugars. 11. Aspirin 81 mg daily. 12. Coreg 3.125 mg twice daily. 13. Rosuvastatin 20 mg daily. 14. Omeprazole 40 mg daily. REVIEW OF SYSTEMS: Except as documented, all systems reviewed and negative. PHYSICAL EXAMINATION: GENERAL: This is a 59-year-old female, lying in her hospital bed, not in acute distress. Alert, oriented, currently on IV nitroglycerin drip along with therapeutic Lovenox injection. VITAL SIGNS: Has a blood pressure of 110/68 mmHg, heart rate of 80 per minute, respiratory rate of 16 per minute, saturation 98% on room air. LUGS: Has an airway, which is clear. HEENT: Atraumatic, normocephalic. NECK: Supple. No bruit. No lymphadenopathy. No JVD. CVS: S1 and S2. No abnormal rhythms or murmurs. CHEST: Bilateral air entry present. No rhonchi. No wheeze. ABDOMEN: Soft, nontender. Bowel sounds are present. No organomegaly. EXTREMITIES: No cyanosis, nonicteric. No pallor. NEUROLOGIC: The patient is alert, oriented x3. No focal motor or sensory deficits noted. HEMATOLOGIC: No ecchymosis or petechiae. PSYCHIATRIC: No depression or anxiety. DIAGNOSTIC STUDIES: WBC is 12.4, hemoglobin 13.2, hematocrit 40.9, platelets are 195. D-dimer is 0.46. Sodium 137, potassium 4.2, chloride 101, carbon dioxide 23, BUN 24, creatinine 1.04. CK-MB is 21.3. Troponin is 2.039. BNP is 800.2. Left lower extremity Doppler, no evidence of DVT noted. Chest x-ray has been reviewed. Perihilar opacities extending into the interstitium may represent pulmonary edema or infiltrates. ASSESSMENT: 1. Kdy-CS-uurnakixg myocardial infarction type 1, present on admission. The patient currently on nitroglycerin drip along with therapeutic Lovenox with cardiology consultation. 2. Diabetes mellitus type 2, insulin dependent. We will start the patient on sliding scale insulin protocol at this point of time. 3. Benign essential hypertension. We will restart the patient back on her antihypertensives. 4. Coronary artery disease with history of coronary artery bypass graft in May 2020. 5. Cardiomyopathy with ejection fraction of 25% to 30%, status post AICD placement in June 2020. 6. Benign essential hypertension. 7. Hyperlipidemia. 8. History of IV drug abuse. 9. History of tobacco abuse. Current smoker. Extensive education in regard to quitting has been noted to the patient. PLAN: Discussed in detail of the diagnosis, treatment, and followup with the patient. Advised the patient about restarting home medications, sliding scale insulin protocol, aspirin, therapeutic Lovenox. Cardiology consultation has been obtained from the emergency room. We will follow official consultation evaluation. The patient will be admitted to ICU at this point of time for NSTEMI and high risk of the patient's cardiac factors. DVT and GI prophylaxis activated. Discharge planning will depend on further hospital course. I expect the patient to be admitted to the hospital services for more than two midnights. Advanced directives are full code. Job ID: [id number]
--- NOTE | 2020-08-19 00:37 | CON ---
DATE OF CONSULTATION: HISTORY OF PRESENT ILLNESS: The patient is an unfortunate 59-year-old woman, who presented with recurrent chest discomfort. The patient has a long history of coronary artery disease. She was seen in June this year with a myocardial infarction. She underwent a cardiac catheterization. She was found to have an 80% LAD lesion, a 60% left circumflex lesion, and a 70% RCA lesion. The patient subsequently underwent coronary artery bypass graft surgery. The patient was found to have an ischemic cardiomyopathy. She subsequently had placement of an implantable cardiac defibrillator. The patient was in her usual state of health when she presented with severe left arm discomfort. The patient denied having any chest discomfort. PAST MEDICAL HISTORY: 1. Coronary artery disease. 2. Hypertension. 3. Dyslipidemia. 4. Bipolar disorder. 5. Diabetes mellitus. PAST SURGICAL HISTORY: Tonsillectomy, back surgery, and cholecystectomy, foot surgery. SOCIAL HISTORY: Long history of tobacco abuse. Has a past history of illicit drug use. MEDICATIONS: On admission, see nursing list. ALLERGIES: SULFA DRUGS. PHYSICAL EXAMINATION: GENERAL: This is a well-developed woman, who was in mild distress. VITAL SIGNS: Blood pressure was 116/60. NECK: No jugular venous distention. LUNGS: Clear to auscultation. HEART: Regular rate and rhythm. Normal S1, S2. ABDOMEN: Nondistended. EXTREMITIES: Showed no edema. VASCULAR: Radial pulses were 2+. LABORATORY DATA: Sodium 137, potassium 4.2, chloride 101, bicarbonate 23, BUN 24, creatinine 1.0. Troponin level was 0.23. BNP is 800. White blood cell count is 12.4, hemoglobin 13.2, hematocrit 40.9, platelets are 195. Chest x-ray showed diffuse pulmonary edema. IMPRESSION: 1. Non-Q-wave myocardial infarction. 2. Congestive heart failure. 3. Severe ischemic cardiomyopathy. 4. History of AICD placement. 5. Hypertension. 6. Dyslipidemia. 7. Diabetes mellitus. 8. Tobacco abuse. This patient presents with a non-Q-wave myocardial infarction. She recently underwent coronary artery bypass surgery. The patient was treated in the ICU with eventual resolution of her pain with the addition of Plavix, Lovenox, and IV nitroglycerin. The patient is on appropriate medical therapy. We will follow this patient with you through her hospitalization. Critical care note time was 45 minutes. Job ID: [id number] [facility]
[2020-08-19] MEDS: Enoxaparin Sodium 80 MG/0.8 ML SYRINGE SC SCH ×2 (01:45→13:43)
[2020-08-19] MEDS ORDERED: Enoxaparin Sodium 80 MG/0.8 ML SYRINGE SC SCH (02:00)
[2020-08-19 03:53] LABS: ALT (SGPT) 12 U/L (8-55); AST (SGOT) 40 U/L (5-34); Albumin 3.4 g/dL (3.5-5.0); Alkaline Phosphatase 88 U/L (40-110); Anion Gap 16 mmol/L (10-20); BUN (Urea Nitrogen) 14 mg/dL (9.8-20.1); Bilirubin, Total 0.6 mg/dL (0.2-1.2); Calc. Creatinine Clearance 98 mL/min (70-130); Calcium 8.4 mg/dL (7.8-10.44); Carbon Dioxide 20 mmol/L (22-29); Chloride 107 mmol/L (98-107); Globulin 2.8 g/dL (2.4-3.5); Glucose 181 mg/dL (70-105); Potassium 4.2 mmol/L (3.5-5.1); Protein, Total 6.2 g/dL (6.0-8.3); Sodium 139 mmol/L (136-145)
[2020-08-19 03:54] LABS: #Basophils 0.1 thou/uL (0.0-0.2); #Eosinphils 0.2 thou/uL (0.0-0.7); #Lymphocytes 1.6 thou/uL (1.20-3.40); #Monocytes 0.8 thou/uL (0.11-0.59); #Neutrophils 5.4 thou/uL (1.40-6.50); %Basophils 0.8 % (0.0-1.0); %Eosinophils 2.6 % (0.0-10.0); %Lymphocytes 19.3 % (21.0-51.0); %Monocytes 9.9 % (0.0-10.0); %Neutrophils 67.4 % (42.0-75.0); Hemoglobin 11.2 g/dL (12.0-16.0); Mean Corpuscular HGB CONC 33.2 g/dL (32.0-36.0); Mean Corpuscular Hemoglobin 31.1 pg (27.0-31.0); Mean Corpuscular Volume 93.6 fL (78.0-98.0); Mean Platelet Volume 9.9 fL (7.4-10.4); Platelet Count 139 thou/uL (130-400); Red Blood Cell (RBC) Count 3.61 mill/uL (4.20-5.40)
[2020-08-19] MEDS ORDERED: Aspirin 81 mg Enteric Coated Tablet PO SCH (09:00)
[2020-08-19] MEDS: Famotidine 20 MG TAB PO SCH ×2 (09:00→20:56)
[2020-08-19] MEDS: Clopidogrel Bisulfate 75 MG TAB PO SCH (09:00)
[2020-08-19] MEDS ORDERED: Non-Formulary Item 1 EACH (Trazodone Hcl [Trazodone Hcl] 100 MG Tablet) PO PRN (10:15)
[2020-08-19 10:37] LABS: Acetaminophen Less than 6.0 mcg/mL (10.0-30.0); Alcohol Less than 10 mg/dL (Less than 10); Salicylate Less than 8.0 mg/dL (15.0-30.0)
--- NOTE | 2020-08-19 10:49 | PRG ---
DATE OF SERVICE: 08/19/2020 TIME OF SERVICE: 8:15 a.m. ALLERGIES: SULFA. CONSULTATIONS ON THE CASE: Dr. mAador Calvert, Cardiology. SUBJECTIVE: The patient seen and evaluated at bedside. The patient currently is chest pain-free, has been loaded with Plavix on 08/18/2020. Currently on statins, aspirin, and Lovenox per Cardiology recommendations. The patient also claims that she consumed cocaine one time this past week. OBJECTIVE: GENERAL: The patient not in acute distress. Chest pain-free. VITAL SIGNS: Blood pressure of 121/66 mmHg, heart rate of 87 per minute, respiratory rate of 18 per minute, saturation of 94% on room air. Has an airway, which is clear. HEENT: Atraumatic and normocephalic. NECK: Supple. No bruit. No lymphadenopathy. CV: S1 and S2. Normal sinus rhythm. CHEST: Bilateral air entry present. No rhonchi. No wheeze. ABDOMEN: Soft, nontender. Bowel sounds are present. No organomegaly. EXTREMITIES: No cyanosis, no edema. NEUROLOGIC: The patient is alert and oriented x3. No focal motor or sensory deficits noted. HEME: No ecchymosis or petechiae. PSYCH: No depression or anxiety. DIAGNOSTICS: WBC is 8.0, hemoglobin 11.2, hematocrit 33.8, platelets are 139. Sodium 139, potassium 4.2, chloride 107, carbon dioxide 20, anion gap is 16, BUN 14, creatinine 0.80. Troponin 2.336 and 4.158. MEDICATIONS: 1. Amiodarone 400 mg daily. 2. Aspirin 81 mg daily. 3. Coreg 6.25 mg b.i.d. 4. Plavix 75 mg daily. 5. Aspirin 81 mg daily. 6. Pepcid 20 mg b.i.d. 7. Lovenox 80 mg b.i.d. for 48 hours. 8. Insulin glargine 40 units at bedtime. 9. Rosuvastatin 20 mg daily. 10. Nicoderm patch 14 mg daily. ASSESSMENT AND PLAN: 1. Wsa-UW-urcanek elevation myocardial infarction. The patient initially loaded with Plavix on 08/18/2020. Cardiology consultation has been obtained along with continuing the patient on Lovenox for 48 hours. At this point of time, conservative medical management has been advised. 2. Cocaine abuse with history of extensive IV drug abuse. The patient has been educated in regard to the same along with abstaining from any recreational drugs, likely causing the patient's current symptomatology and myocardial infarction. The patient has been educated in regard to adverse consequences, not excluding . 3. Benign essential hypertension, well controlled. 4. Diabetes mellitus type 2, insulin-dependent. 5. Coronary artery disease with history of coronary artery bypass graft in May 2020. 6. Cardiomyopathy with ejection fraction of 25% to 30%, status post automatic implantable cardioverter-defibrillator placement in June 2020. 7. Hyperlipidemia. 8. Tobacco abuse, currently on Nicoderm patch. PLAN: Discussed in detail of the diagnosis, treatment, and followup with the patient. Advised the patient about abstaining from any recreational drugs including IV drug abuse or cocaine. Per my discussion with Cardiology Services, conservative medical management has been advised for now. We will transition the patient to telemetry floor once more stable and off the patient's nitroglycerin drip. Job ID: [id number]
[2020-08-19] MEDS: Amiodarone 200 MG TAB PO SCH (10:58)
[2020-08-19] MEDS ORDERED: ALPRAZolam 0.25 MG TAB PO SCH (11:00)
[2020-08-19] MEDS: HumaLOG 300 UNITS/3 ML VIAL SC SCH ×2 (11:54→17:27)
[2020-08-19] MEDS ORDERED: HumaLOG 300 UNITS/3 ML VIAL SC SCH (12:00)
[2020-08-19] MEDS: lamoTRIgine 100 MG TAB PO SCH (18:58)
[2020-08-19] MEDS: Carvedilol 6.25 MG TAB PO SCH (20:56)
[2020-08-19] MEDS: Insulin Glargine 40 UNITS in Pre-Filled Syringe 1 EACH SC SCH (20:57)
[2020-08-19] MEDS: Nicotine 14 MG PATCH TD SCH ×2 (20:57→22:46)
[2020-08-19] MEDS: Rosuvastatin 20 MG TAB PO SCH ×2 (20:57)
[2020-08-19] MEDS: ALPRAZolam 0.25 MG TAB PO SCH (20:58)
[2020-08-20] MEDS: Enoxaparin Sodium 80 MG/0.8 ML SYRINGE SC SCH (00:27)
[2020-08-20] MEDS: traZODone HCl 50 MG TAB PO PRN ×2 (03:23→21:14)
[2020-08-20 05:07] LABS: #Basophils 0.1 thou/uL (0.0-0.2); #Eosinphils 0.1 thou/uL (0.0-0.7); #Lymphocytes 1.4 thou/uL (1.20-3.40); #Monocytes 0.6 thou/uL (0.11-0.59); %Basophils 0.7 % (0.0-1.0); %Monocytes 7.4 % (0.0-10.0); %Neutrophils 73.9 % (42.0-75.0); Hemoglobin 11.3 g/dL (12.0-16.0); Mean Corpuscular Hemoglobin 30.6 pg (27.0-31.0); Mean Corpuscular Volume 92.7 fL (78.0-98.0); Mean Platelet Volume 9.7 fL (7.4-10.4); Platelet Count 150 thou/uL (130-400); RBC Distribution Width 14.3 % (11.5-14.5); Red Blood Cell (RBC) Count 3.68 mill/uL (4.20-5.40); White Blood Cell (WBC) Count 8.2 thou/uL (4.8-10.8)
[2020-08-20 05:13] LABS: ALT (SGPT) 13 U/L (8-55); AST (SGOT) 20 U/L (5-34); Albumin 3.5 g/dL (3.5-5.0); Alkaline Phosphatase 95 U/L (40-110); Anion Gap 18 mmol/L (10-20); BUN (Urea Nitrogen) 12 mg/dL (9.8-20.1); Bilirubin, Total 0.9 mg/dL (0.2-1.2); Calc. Creatinine Clearance 101 mL/min (70-130); Calcium 8.5 mg/dL (7.8-10.44); Carbon Dioxide 20 mmol/L (22-29); Chloride 105 mmol/L (98-107); Globulin 2.8 g/dL (2.4-3.5); Glucose 163 mg/dL (70-105); Potassium 3.6 mmol/L (3.5-5.1); Protein, Total 6.3 g/dL (6.0-8.3); Sodium 139 mmol/L (136-145)
[2020-08-20] MEDS: Folic Acid 1 MG TAB PO SCH (08:40)
[2020-08-20] MEDS: Clopidogrel Bisulfate 75 MG TAB PO SCH (08:40)
[2020-08-20] MEDS: Famotidine 20 MG TAB PO SCH ×2 (08:40→21:09)
[2020-08-20] MEDS: Saccharomyces boulardii 250 MG CAP PO SCH (08:40)
[2020-08-20] MEDS: ALPRAZolam 0.25 MG TAB PO SCH ×3 (08:41→21:37)
[2020-08-20] MEDS: lamoTRIgine 100 MG TAB PO SCH (08:41)
[2020-08-20] MEDS: Amiodarone 200 MG TAB PO SCH (08:42)
[2020-08-20] MEDS: Aspirin Chewable 81 MG TAB PO SCH (08:42)
[2020-08-20] MEDS: Carvedilol 6.25 MG TAB PO SCH ×2 (08:42→21:10)
[2020-08-20] MEDS: HumaLOG 300 UNITS/3 ML VIAL SC SCH ×3 (08:43→17:21)
[2020-08-20] MEDS ORDERED: SACCHAROMYCES BOULARDII 250 MG PO SCH (09:00)
[2020-08-20] MEDS ORDERED: BIOTIN 1 MG PO SCH (09:00)
[2020-08-20] MEDS ORDERED: Non-Formulary Item 1 EACH (Biotin [Biotin] 1 MG Tablet) PO SCH (09:00)
[2020-08-20] MEDS ORDERED: Amiodarone 200 MG TAB PO SCH (09:00)
[2020-08-20] MEDS ORDERED: Non-Formulary Item 1 EACH (Folic Acid [Folic Acid] 0.4 MG Tablet) PO SCH (09:00)
[2020-08-20] MEDS ORDERED: Non-Formulary Item 1 EACH (Omeprazole [Omeprazole] 40 MG Capsule.Dr) PO SCH (09:00)
[2020-08-20] MEDS ORDERED: Non-Formulary Item 1 EACH (Lamotrigine [Lamotrigine] 200 MG Tablet) PO SCH (09:00)
--- NOTE | 2020-08-20 13:58 | PDOC.HOSPP ---
- Subjective Subjective: Pt denies any chest pain. Cardiology is following - Objective Vital Signs & Weight: Vital Signs (12 hours) Temp Pulse Resp BP BP Pulse Ox 08/20/20 11:48 97.9 F 80 16 137/88 97 08/20/20 07:13 98.2 F 86 16 139/77 96 08/20/20 04:00 98.5 F 93 16 154/92 H 97 Weight Weight 176 lb 14.03 oz Most Recent Monitor Data Heart Rate from ECG 99 NIBP 151/93 NIBP BP-Mean 112 Respiration from ECG 22 SpO2 96 I&O: 08/19/20 08/20/20 08/21/20 06:59 06:59 06:59 Intake Total 599 850 480 Output Total 950 900 Balance -351 -50 480 Result Diagrams: 08/20/20 04:40 08/20/20 04:40 Additional Labs: Accuchecks 08/20/20 08/20/20 08/19/20 10:52 05:40 20:59 POC Glucose 180 H 139 H 111 H 08/19/20 17:24 POC Glucose 211 H Radiology Reviewed by me: Yes EKG Reviewed by me: Yes Hospitalist ROS - Medication Medications: Active Medications Generic Name Dose Route Start Last Admin Trade Name Freq PRN Reason Stop Dose Admin Acetaminophen 650 mg 08/18/20 17:52 08/18/20 20:54 Acetaminophen 325 Mg Tab PO 650 mg Q4H PRN Administration Headache/Fever/Mild Pain (1-3) Amiodarone HCl 400 mg 08/20/20 09:00 08/20/20 08:42 Amiodarone 200 Mg Tab PO 400 mg DAILY STANLEY Administration Aspirin 81 mg 08/20/20 09:00 08/20/20 08:42 Aspirin Chewable 81 Mg Tab PO 81 mg DAILY STANLEY Administration Carvedilol 6.25 mg 08/19/20 21:00 08/20/20 08:42 Carvedilol 6.25 Mg Tab PO 6.25 mg BID STANLEY Administration Clopidogrel Bisulfate 75 mg 08/19/20 09:00 08/20/20 08:40 Clopidogrel Bisulfate 75 Mg Tab PO 75 mg DAILY STANLEY Administration Famotidine 20 mg 08/18/20 21:00 08/20/20 08:40 Famotidine 20 Mg Tab PO 20 mg BID STANLEY Administration Folic Acid 0.5 mg 08/20/20 09:00 08/20/20 08:40 Folic Acid 1 Mg Tab PO 0.5 mg DAILY STANLEY Administration Insulin Glargine 40 units/ 0.4 mls @ 0 mls/hr 08/19/20 21:00 08/19/20 20:57 Miscellaneous Medication SC 0.4 mls HS STANLEY Administration Insulin Human Lispro 6 units 08/19/20 12:00 08/20/20 08:43 Humalog 300 Units/3 Ml Vial SC Not Given TID-WM STANLEY Lamotrigine 200 mg 08/20/20 09:00 08/20/20 08:41 Lamotrigine 100 Mg Tab PO 200 mg DAILY STANLEY Administration Nicotine 14 mg 08/18/20 21:00 08/19/20 22:46 Nicotine 14 Mg Patch TD Not Given 2100 ST[facility]LEY Pantoprazole Sodium 40 mg 08/20/20 09:00 08/20/20 08:40 Pantoprazole 40 Mg Tab PO 40 mg DAILY STANLEY Administration Rosuvastatin Calcium 20 mg 08/19/20 21:00 08/19/20 20:57 Rosuvastatin 20 Mg Tab PO Not Given HS STANLEY Saccharomyces Boulardii 250 mg 08/20/20 09:00 08/20/20 08:40 Saccharomyces Boulardii 250 Mg Cap PO 250 mg DAILY STANLEY Administration Sacubitril/Valsartan 1 tab 08/19/20 21:00 08/20/20 08:42 Sacubitril 24mg/Valsartan 26mg Tab PO 1 tab BID STANLEY Administration Sodium Chloride 10 ml 08/19/20 21:00 08/20/20 08:43 Flush - Normal Saline 10 Ml Syringe IVF 10 ml Q12HR STANLEY Administration Trazodone HCl 200 mg 08/19/20 10:44 08/20/20 03:23 Trazodone Hcl 50 Mg Tab PO 200 mg PRN PRN Administration BIPOLAR/PANIC - Exam General Appearance: NAD Eye: PERRL ENT: normocephalic atraumatic Neck: supple Heart: RRR Respiratory: wheezes Gastrointestinal: soft, non-tender Extremities: no cyanosis Skin: normal turgor Neurological: cranial nerve grossly intact Musculoskeletal: normal tone, normal strength Psychiatric: normal affect, normal behavior, A&O x 3 Hosp A/P - Plan The patient is a pleasant 59 years old female who has significant past medical history of systolic heart failure with EF of 25-30% with s/p AICD, CAD with history of CABG in May 2020, history of IV drug use, tobacco dependent disorder, hypertension, who presented to ED with complaint of r ecurrent left arm pain. 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
[2020-08-20] MEDS: Nicotine 14 MG PATCH TD SCH (21:09)
[2020-08-20] MEDS: Rosuvastatin 20 MG TAB PO SCH (21:09)
[2020-08-20] MEDS: Insulin Glargine 40 UNITS in Pre-Filled Syringe 1 EACH SC SCH (21:09)
[2020-08-20] MEDS: Acetaminophen 325 MG TAB PO PRN (22:49)
[2020-08-21 05:36] LABS: Anion Gap 12 mmol/L (10-20); BUN (Urea Nitrogen) 13 mg/dL (9.8-20.1); Calc. Creatinine Clearance 92 mL/min (70-130); Calcium 8.5 mg/dL (7.8-10.44); Carbon Dioxide 25 mmol/L (22-29); Cardiac Risk 2.7 (Less than 4.5); Chloride 104 mmol/L (98-107); Cholesterol 138 mg/dl (< 200 Desired); Glucose 201 mg/dL (70-105); HDL Cholesterol 51 mg/dL (>60 Neg Risk); LDL Cholesterol, Calculated 70 mg/dL; Potassium 3.7 mmol/L (3.5-5.1); Sodium 137 mmol/L (136-145); Triglycerides 84 mg/dL (Less than 150)
[2020-08-21 07:00] LABS: #Basophils 0.1 thou/uL (0.0-0.2); #Eosinphils 0.2 thou/uL (0.0-0.7); #Lymphocytes 1.4 thou/uL (1.20-3.40); #Monocytes 0.6 thou/uL (0.11-0.59); #Neutrophils 4.7 thou/uL (1.40-6.50); %Eosinophils 3.1 % (0.0-10.0); %Monocytes 9.1 % (0.0-10.0); %Neutrophils 66.8 % (42.0-75.0); Hemoglobin 11.6 g/dL (12.0-16.0); Mean Corpuscular HGB CONC 33.3 g/dL (32.0-36.0); Mean Corpuscular Hemoglobin 31.5 pg (27.0-31.0); Mean Corpuscular Volume 94.7 fL (78.0-98.0); Mean Platelet Volume 10.4 fL (7.4-10.4); Platelet Count 118 thou/uL (130-400); Platelet Morphology Comment Appears Adequate; RBC Distribution Width 14.2 % (11.5-14.5); Red Blood Cell (RBC) Count 3.68 mill/uL (4.20-5.40)
[2020-08-21] MEDS ORDERED: FLU VACC QS2020-21(6MOS UP)/PF 60 MCG/0.5 ML SYRINGE IM ONE (09:00)
[2020-08-21] MEDS: ALPRAZolam 0.25 MG TAB PO SCH ×3 (09:31→20:51)
[2020-08-21] MEDS: HumaLOG 300 UNITS/3 ML VIAL SC SCH ×3 (10:52→18:34)
[2020-08-21] MEDS ORDERED: Iopamidol 370 76% 50 ML VIAL FS ONE (11:37)
[2020-08-21] MEDS ORDERED: Iopamidol 370 76% 100 ML VIAL ONE (11:37)
[2020-08-21] MEDS ORDERED: Heparin 10,000 UNITS/ 10 ML VIAL ONE (13:23)
[2020-08-21] MEDS ORDERED: Verapamil 5 MG/2 ML VIAL ONE ×2 (13:23→15:06)
[2020-08-21] MEDS ORDERED: Nitroglycerin 100MG/250ML BOT 250 ML ONE (13:24)
[2020-08-21] MEDS ORDERED: Lidocaine 1% (PF) 30 ML VIAL ONE (13:24)
--- NOTE | 2020-08-21 13:26 | PRG ---
DATE OF SERVICE: 08/21/2020 SUBJECTIVE: Ms. Rodriguez is doing well. No current complaints. She was recently admitted for recurrent chest pain with elevated troponin. Unfortunately, she reverted back to cocaine use. OBJECTIVE: VITAL SIGNS: Blood pressure , pulse 88, temperature 97.5. LUNGS: Clear to auscultation. HEART: Regular rate and rhythm. ABDOMEN: Soft, nontender, nondistended. EXTREMITIES: No edema. IMPRESSION: 1. Elevated troponin. 2. Cocaine abuse. 3. Coronary artery disease. 4. Status post bypass surgery. RECOMMENDATIONS: 1. Ms. Rodriguez certainly has a complex case. During her last angio, she did have what appeared to be a dissection of the left subclavian artery. 2. We discussed proceeding with coronary angiography in addition to medical therapy. Her symptoms may be related to coronary spasm versus unstable angina. Given the above, patient agreed to proceed according angiography. We will need to be left radial approach to assess the DESIREE. I discussed the procedure in full detail with Ms. Rodriguez. Risks include, but not limited to the following: , stroke, [place], need for emergency surgery, loss of limb, bleeding, and infection, as well as a reaction to the dye causing kidney failure and needing long-term dialysis. I also discussed the risks of PCI to include all of the above including coronary dissection and perforation in addition to acute stent thrombosis and restenosis. All questions about the procedure were answered. Given the above, the patient agreed to proceed with coronary angiography and possible PCI. All questions answered given the above, the patient agreed to proceed procedure. There were no contraindications to drug-coated stent placement. We will proceed if needed. Job ID: [id number]
[2020-08-21] MEDS ORDERED: Clopidogrel Bisulfate 300 MG TAB ONE (14:50)
--- NOTE | 2020-08-21 14:58 | PDOC.HOSPP ---
- Subjective Subjective: Patient was seen examined at bedside. No acute events overnight. Patient was seen by her primary supervisor personnel clerks, plan for left heart cath today. She is currently chest pain-free. - Objective Vital Signs & Weight: Vital Signs (12 hours) Temp Pulse Resp BP Pulse Ox 08/21/20 11:31 97.5 F L 88 16 137/91 H 99 08/21/20 07:28 97.5 F L 75 16 109/67 97 08/21/20 03:49 97.6 F 77 16 121/63 97 Weight Weight 176 lb 14.03 oz Most Recent Monitor Data Heart Rate from ECG 99 NIBP 151/93 NIBP BP-Mean 112 Respiration from ECG 22 SpO2 96 I&O: 08/20/20 08/21/20 08/22/20 06:59 06:59 06:59 Intake Total 850 1740 Output Total 900 3 Balance -50 1737 Result Diagrams: 08/21/20 04:44 08/21/20 04:44 Additional Labs: Accuchecks 08/21/20 08/20/20 08/20/20 10:46 21:02 17:05 POC Glucose 161 H 244 H 219 H 08/20/20 08/19/20 15:14 11:53 POC Glucose 142 H 208 H Radiology Reviewed by me: Yes EKG Reviewed by me: Yes Hospitalist ROS - Medication Medications: Active Medications Generic Name Dose Route Start Last Admin Trade Name Freq PRN Reason Stop Dose Admin Acetaminophen 650 mg 08/18/20 17:52 08/20/20 22:49 Acetaminophen 325 Mg Tab PO 650 mg Q4H PRN Administration Headache/Fever/Mild Pain (1-3) Alprazolam 0.25 mg 08/20/20 15:00 08/21/20 09:31 Alprazolam 0.25 Mg Tab PO 0.25 mg TID STANLEY Administration Amiodarone HCl 400 mg 08/20/20 09:00 08/20/20 08:42 Amiodarone 200 Mg Tab PO 400 mg DAILY ST[place]LEY Administration Aspirin 81 mg 08/20/20 09:00 08/20/20 08:42 Aspirin Chewable 81 Mg Tab PO 81 mg DAILY ST[place]LEY Administration Carvedilol 6.25 mg 08/19/20 21:00 08/20/20 21:10 Carvedilol 6.25 Mg Tab PO 6.25 mg BID ST[place]LEY Administration Clopidogrel Bisulfate 75 mg 08/19/20 09:00 08/20/20 08:40 Clopidogrel Bisulfate 75 Mg Tab PO 75 mg DAILY STANLEY Administration Famotidine 20 mg 08/18/20 21:00 08/20/20 21:09 Famotidine 20 Mg Tab PO 20 mg BID STANLEY Administration Folic Acid 0.5 mg 08/20/20 09:00 08/20/20 08:40 Folic Acid 1 Mg Tab PO 0.5 mg DAILY ST[place]LEY Administration Insulin Glargine 40 units/ 0.4 mls @ 0 mls/hr 08/19/20 21:00 08/20/20 21:09 Miscellaneous Medication SC 0.4 mls HS STANLEY Administration Insulin Human Lispro 6 units 08/19/20 12:00 08/21/20 12:28 Humalog 300 Units/3 Ml Vial SC Not Given TID-WM ST[facility]LEY Lamotrigine 200 mg 08/20/20 09:00 08/20/20 08:41 Lamotrigine 100 Mg Tab PO 200 mg DAILY ST[place]LEY Administration Nicotine 14 mg 08/18/20 21:00 08/20/20 21:09 Nicotine 14 Mg Patch TD Not Given [address] [facility] Pantoprazole Sodium 40 mg 08/20/20 09:00 08/20/20 08:40 Pantoprazole 40 Mg Tab PO 40 mg DAILY STANLEY Administration Rosuvastatin Calcium 20 mg 08/19/20 21:00 08/20/20 21:09 Rosuvastatin 20 Mg Tab PO 20 mg HS STANLEY Administration Saccharomyces Boulardii 250 mg 08/20/20 09:00 08/20/20 08:40 Saccharomyces Boulardii 250 Mg Cap PO 250 mg DAILY ST[place]LEY Administration Sacubitril/Valsartan 1 tab 08/19/20 21:00 08/20/20 21:09 Sacubitril 24mg/Valsartan 26mg Tab PO 1 tab BID STANLEY Administration Sodium Chloride 10 ml 08/19/20 21:00 08/21/20 09:30 Flush - Normal Saline 10 Ml Syringe IVF 10 ml Q12HR STANLEY Administration Trazodone HCl 200 mg 08/19/20 10:44 08/20/20 21:14 Trazodone Hcl 50 Mg Tab PO 200 mg PRN PRN Administration BIPOLAR/PANIC - Exam General Appearance: NAD Eye: PERRL ENT: normocephalic atraumatic Neck: supple Heart: RRR, no murmur Respiratory: CTAB, no wheezes Gastrointestinal: soft, non-tender, non-distended Extremities: no cyanosis, no clubbing Skin: normal turgor Neurological: cranial nerve grossly intact, normal sensation to touch Musculoskeletal: normal tone, normal strength Psychiatric: normal affect, normal behavior, A&O x 3 Hosp A/P - Plan The patient is a pleasant 59 years old female who has significant past medical history of systolic heart failure with EF of 25-30% with s/p AICD, CAD with history of CABG in May 2020, history of IV drug use, tobacco dependent disorder, hypertension, who presented to ED with complaint of recurrent left arm pain. NSTEMI - currently CP-free --cont med mgt, plan for heart cath today CAD with hx of CABG in 06/04 --cont home medications Ischemic Cardiomyopathy with s/p AICD --mgt as above, compensated Chronic systolic HF with EF 25-30% --no evidence of volume overload Dyslipidemia --Continue statin DM 2 --cont ISS Tobacco dependent disorder --Counseled History of substance abuse
[2020-08-21] MEDS ORDERED: Adenosine 6 MG/2 ML VIAL ONE (15:06)
[2020-08-21] MEDS ORDERED: Ondansetron PF 4 MG/2 ML Vial ONE (15:12)
[2020-08-21] MEDS ORDERED: cloNIDine 0.1 MG TAB ONE (15:12)
[2020-08-21] MEDS ORDERED: Sodium Chloride 0.9% 1,000 ML IV SCH (16:15)
[2020-08-21] MEDS: Saccharomyces boulardii 250 MG CAP PO SCH (18:06)
[2020-08-21] MEDS: Famotidine 20 MG TAB PO SCH ×2 (18:06→20:52)
[2020-08-21] MEDS: Folic Acid 1 MG TAB PO SCH (18:06)
[2020-08-21] MEDS: lamoTRIgine 100 MG TAB PO SCH (18:06)
[2020-08-21] MEDS: Amiodarone 200 MG TAB PO SCH (18:07)
[2020-08-21] MEDS: Aspirin Chewable 81 MG TAB PO SCH (18:07)
[2020-08-21] MEDS: Clopidogrel Bisulfate 75 MG TAB PO SCH (18:07)
[2020-08-21] MEDS: Carvedilol 6.25 MG TAB PO SCH ×2 (18:07→20:51)
[2020-08-21] MEDS: Acetaminophen 325 MG TAB PO PRN (18:26)
[2020-08-21] MEDS: Rosuvastatin 20 MG TAB PO SCH (20:53)
[2020-08-21] MEDS: Nicotine 14 MG PATCH TD SCH (20:53)
[2020-08-21] MEDS: Insulin Glargine 40 UNITS in Pre-Filled Syringe 1 EACH SC SCH (20:53)
[2020-08-21] MEDS ORDERED: Enoxaparin Sodium 40 MG/0.4 ML SYRINGE SC SCH (21:00)
[2020-08-21] MEDS: traZODone HCl 50 MG TAB PO PRN (23:11)
[2020-08-22 05:13] LABS: #Basophils 0.1 thou/uL (0.0-0.2); #Eosinphils 0.2 thou/uL (0.0-0.7); #Lymphocytes 1.3 thou/uL (1.20-3.40); #Monocytes 0.6 thou/uL (0.11-0.59); #Neutrophils 5.7 thou/uL (1.40-6.50); %Basophils 0.7 % (0.0-1.0); %Eosinophils 2.9 % (0.0-10.0); %Lymphocytes 16.8 % (21.0-51.0); %Monocytes 7.8 % (0.0-10.0); %Neutrophils 71.8 % (42.0-75.0); Hemoglobin 11.8 g/dL (12.0-16.0); Mean Corpuscular HGB CONC 31.4 g/dL (32.0-36.0); Mean Corpuscular Hemoglobin 30.5 pg (27.0-31.0); Mean Corpuscular Volume 97.1 fL (78.0-98.0); Mean Platelet Volume 9.9 fL (7.4-10.4); Platelet Count 166 thou/uL (130-400); RBC Distribution Width 14.5 % (11.5-14.5); Red Blood Cell (RBC) Count 3.88 mill/uL (4.20-5.40)
[2020-08-22 05:32] LABS: ALT (SGPT) 10 U/L (8-55); AST (SGOT) 16 U/L (5-34); Albumin 3.5 g/dL (3.5-5.0); Alkaline Phosphatase 94 U/L (40-110); Anion Gap 16 mmol/L (10-20); BUN (Urea Nitrogen) 14 mg/dL (9.8-20.1); Bilirubin, Total 0.4 mg/dL (0.2-1.2); Calc. Creatinine Clearance 94 mL/min (70-130); Calcium 8.7 mg/dL (7.8-10.44); Carbon Dioxide 22 mmol/L (22-29); Chloride 105 mmol/L (98-107); Glucose 175 mg/dL (70-105); Potassium 3.8 mmol/L (3.5-5.1); Protein, Total 6.5 g/dL (6.0-8.3); Sodium 139 mmol/L (136-145)
[2020-08-22] MEDS: Clopidogrel Bisulfate 75 MG TAB PO SCH (08:00)
[2020-08-22] MEDS: lamoTRIgine 100 MG TAB PO SCH (08:00)
[2020-08-22] MEDS: Famotidine 20 MG TAB PO SCH (08:00)
[2020-08-22] MEDS: Saccharomyces boulardii 250 MG CAP PO SCH (08:00)
[2020-08-22] MEDS: Aspirin Chewable 81 MG TAB PO SCH (08:00)
[2020-08-22] MEDS: Folic Acid 1 MG TAB PO SCH (08:01)
[2020-08-22] MEDS: Carvedilol 6.25 MG TAB PO SCH (08:01)
[2020-08-22] MEDS: ALPRAZolam 0.25 MG TAB PO SCH (08:02)
[2020-08-22] MEDS: HumaLOG 300 UNITS/3 ML VIAL SC SCH ×2 (08:02→11:41)
--- NOTE | 2020-08-22 08:53 | CON ---
DATE OF CONSULTATION: 08/22/2020 SUBJECTIVE: Ms. Rodriguez is doing much better. No current complaints. OBJECTIVE: VITAL SIGNS: Blood pressure 130/84, pulse 93, temperature 98.2. LUNGS: Clear to auscultation. HEART: Regular rate and rhythm. ABDOMEN: Soft, nontender, nondistended. EXTREMITIES: No edema. LABS: None. IMPRESSION: 1. Unstable angina. 2. Cocaine use. 3. Severe coronary artery disease. 4. Status post bypass surgery. RECOMMENDATIONS: Unfortunately, Ms. Rodriguez has continued to use cocaine despite all the efforts that have been made recently to improve her cardiac status. She states she will no longer use cocaine as she did during her last hospitalization. We would recommend aspirin in addition to Plavix. Prior to proceeding with angio, I did discuss drug coated versus nondrug coated stent placement. She felt it was best to proceed with Plavix for one month if needed instead of 6 months. A drug-coated stent was placed successfully. Otherwise, I have no further recommendations. Plan is to follow up with Ms. Rodriguez in 1 week. Job ID: [id number]
[2020-08-22] MEDS ORDERED: Lisinopril 5 MG TAB PO SCH (09:00)
[2020-08-22] MEDS ORDERED: Amiodarone 200 MG TAB PO SCH (09:00)
--- NOTE | 2020-08-22 09:53 | PDOC.DS.DS ---
Provider - Provider Date of Admission: 08/18/20 14:40 Date of Discharge: 08/22/20 Admitting Provider: Pablito Dillon MD Consultations: Cardiology Primary Care Physician: [facility] Course - Hospital Course Hospital Course: DISCHARGE DIAGNOSES: 1. NSTEMI 2. CAD with history of CABG in May 2020 3. Ischemic cardiomyopathy with status post AICD placement 4. Chronic systolic heart failure with EF 25-30% 5. Dyslipidemia 6. Diabetes type 2 7. Tobacco dependent disorder 8. Histories of substance abuse PERTINENT IMAGING STUDIES: 1. Chest x-ray: Perihilar opacity extending into the interstitium and represent pulmonary edema or infiltrate 2. Left upper extremity venous Doppler: No evidence of DVT HISTORY OF PRESENT ILLNESS AND BRIEF HOSPITAL COURSE: Patient is a pleasant 59 years old female who has significant past medical histories of extensive CAD with CABG back in May 2020, diabetes type 2, chronic systolic heart failure, ischemic cardiomyopathy with EF of 25%, status post AICD, histories of IV drugs abuse, dyslipidemia, diet bipolar, hypertension, diabetes, who unfortunately still smoke, presented to ED with complaint of chest discomfort. Patient was subsequently admitted to hospitalist service. Her troponin was noted elevated, and take at 4.1. Cardiology was consulted. Patient was started on Lovenox, and medical management. She was subsequently underwent left heart cath, this post PCI. Patient tolerated procedure well. No further chest pain was noted. Patient was seen by ca rdiology, recommend dual antiplatelet therapy. Patient was placed on beta- tiffany as well as MYA inhibitor. At this time, patient has been cleared from cardiology service for discharge home. Recommend to follow-up with Dr. Mcfadden in 1 week, and follow-up with her PCP in 1 to 2 weeks. Patient was counseled extensively with regard to smoking cessation. PROCEDURE PERFORMED: Left heart cath performed by Dr. Mcfadden, status post stent in the SVG to OMB DISCHARGE CONDITION: STABLE DISPOSITION: HOME PHYSICAL EXAM: General Appearance: Alert, oriented, resting comfortably, no apparent distress, well developed/nourished. HEENT: Normocephalic/atraumatic, moist mucous membrane, normal ENT inspection, normal tones. PERRLA, no scleral icterus, normal conjunctiva Neck: Supple, normal inspection, no JVD Respiratory: Lungs are clear bilaterally, normal breath sounds, no accessory muscle use Cardiovascular: Regular rate, regular rhythm, no murmur, no rubs Abdomen: Soft, nontender, nondistended, normal bowel sounds, no organomegaly, no guarding no rebound Back: Normal inspection, no CVA tenderness Extremities: No clubbing, no cyanosis, no edema Psych/Mental Status: Normal affect, speech, non-pressured, AAO x 3 Neurologic: CN II-XII are intact. Skin: Warm/Dry, Normal Color, no rashes DISCHARGE TIME SPENT: >30 MINUTES Resuscitation Status: 08/18/20 17:52 Resuscitation Status Routine Resuscitation Status: FULL: Full Resuscitation - Labs Lab Results: 08/22/20 04:51 08/22/20 04:51 Abnormal Lab Results - Last 48 hrs 08/21/20 04:44: RBC 3.68 L, Hgb 11.6 L, Hct 34.8 L, MCH 31.5 H, Plt Count 118 L, Lymphocytes % 20.0 L, Monocytes # 0.6 H 08/21/20 16:30: Activated Clotting Time 147 H 08/22/20 04:51: RBC 3.88 L, Hgb 11.8 L, MCHC 31.4 L, Lymphocytes % 16.8 L, Monoc ytes # 0.6 H - Physical Exam Vitals: Vital Signs (12 hours) Temp Pulse Resp BP Pulse Ox 08/22/20 07:44 98.2 F 93 16 130/84 96 08/22/20 04:00 98.3 F 89 17 142/76 H 93 L 08/21/20 23:56 98.4 F 88 17 142/92 H 98 Weight Weight 176 lb 14.03 oz Most Recent Monitor Data Heart Rate from ECG 99 NIBP 151/93 NIBP BP-Mean 112 Respiration from ECG 22 SpO2 96 Physical Exam: The patient was seen and examined on the day of discharge. Plan - Discharge Medications Prescriptions: Clopidogrel Bisulfate [Plavix] 75 mg PO DAILY #30 tab Albuterol Sulfate [Proventil Hfa] 2 puff INH Q4H PRN #1 inh PRN Reason: Sob &/Or Wheezing Lisinopril [Zestril] 5 mg PO DAILY #30 tab Home Medications: Medication Instructions Recorded Confirmed Type Acetaminophen/Diphenhydramine 1 each PO PRN PRN 06/04/20 08/19/20 History [Acetaminophen-Diphenhyd 500-25] Biotin 0.5 mg PO DAILY 06/04/20 08/19/20 History Folic Acid 0.4 mg PO DAILY 06/04/20 08/19/20 History Gabapentin 600 mg PO TID 06/04/20 08/19/20 History Insulin Glargine,Hum.Rec.Anlog 40 units SQ HS 06/04/20 08/19/20 History [Lantus] Lamotrigine [lamoTRIgine] 200 mg PO DAILY 06/04/20 08/19/20 History Saccharomyces Boulardii [Daily 250 mg PO DAILY 06/04/20 08/19/20 History Probiotic] buPROPion HCl [buPROPion HCl ER] 200 mg PO DAILY 06/04/20 08/19/20 History traZODone HCl [Trazodone HCl] 200 mg PO PRN PRN 06/04/20 08/19/20 History HumaLOG [HumaLOG Vial] 6 unit SC TID-WM 06/05/20 08/19/20 History Aspirin Chewable [Aspirin Chewable 81 mg PO DAILY #30 tab 06/12/20 08/19/20 Rx Tablet] Rosuvastatin [Crestor] 20 mg PO HS #30 tab 06/12/20 08/19/20 Rx Omeprazole 40 mg PO DAILY 06/24/20 08/19/20 History Amiodarone [Cordarone] 400 mg PO DAILY 08/19/20 08/19/20 History Carvedilol [Coreg] 6.25 mg PO BID 08/19/20 08/19/20 History Albuterol Sulfate [Proventil Hfa] 2 puff INH Q4H PRN #1 inh 08/22/20 Rx Clopidogrel Bisulfate [Plavix] 75 mg PO DAILY #30 tab 08/22/20 Rx Lisinopril [Zestril] 5 mg PO DAILY #30 tab 08/22/20 Rx Allergies: Sulfa (Sulfonamide Antibiotics) Allergy (Verified 06/04/20 20:18) - Discharge Instructions Activity:: Activity as Tolerated Nourishment:: Heart Healthy Diet - Follow up Plan Referrals: Cardiac Rehab - [place] [Outside] - 7 Days (Your doctor has ordered outpatient cardiac rehab for you to begin within 1-2 weeks after you go home from the hospital. The location nearest to you is the [facility]. We will call you in 3-5 days to get you scheduled for your evaluation. If you do not receive a call, please reach out to us at [phone] and request an appointment.) [facility] [Primary Care Provider] - 08/28/20 9:15 am Isidro Mcfadden MD [Active] - 14 Days Disposition: HOME Quality - Care Measures CORE MEASURES:: AMI - Stroke/TIA Did you prescribe antithrombotic therapy?: Yes
[2020-08-22 11:47] VITALS: BP 120/72; TEMP 97.8
== END 2020-08-22 12:58 | disposition home or self-care (01) | DRG 249 ==
LOC: ERS 11:12 → ERHOLD 14:40 → CCU 17:32 → 2SE 08-19 22:41
PROVIDERS: ADMIT Student in an Organized Health Care Education/Training Program; ATTEND Family Medicine
PROC: 02703DZ Dilation of Coronary Artery, One Artery with Intraluminal Device, Percutaneous Approach (ICD-10-PCS; principal; 2020-08-21)
PROC: 4A023N7 Measurement of Cardiac Sampling and Pressure, Left Heart, Percutaneous Approach (ICD-10-PCS; 2020-08-21)
PROC: B2131ZZ Fluoroscopy of Multiple Coronary Artery Bypass Grafts using Low Osmolar Contrast (ICD-10-PCS; 2020-08-21)
PROC: B2151ZZ Fluoroscopy of Left Heart using Low Osmolar Contrast (ICD-10-PCS; 2020-08-21)
DX: I21.4 Non-ST elevation (NSTEMI) myocardial infarction (principal); I50.22 Chronic systolic (congestive) heart failure; Z23 Encounter for immunization; Z20.828 Contact with and (suspected) exposure to other viral communicable diseases; I25.110 Atherosclerotic heart disease of native coronary artery with unstable angina pectoris; I25.5 Ischemic cardiomyopathy; E78.5 Hyperlipidemia, unspecified; E11.9 Type 2 diabetes mellitus without complications; F17.210 Nicotine dependence, cigarettes, uncomplicated; F14.10 Cocaine abuse, uncomplicated; I11.0 Hypertensive heart disease with heart failure; F41.9 Anxiety disorder, unspecified; Z88.2 Allergy status to sulfonamides; Z95.1 Presence of aortocoronary bypass graft; Z95.810 Presence of automatic (implantable) cardiac defibrillator; Z79.899 Other long term (current) drug therapy; Z79.4 Long term (current) use of insulin; Z79.82 Long term (current) use of aspirin; Z90.49 Acquired absence of other specified parts of digestive tract
CPT/HCPCS: 36415; 36416; 71045; 76942; 80048; 80053; 80061; 80307; 82553; 83605; 83735; 83880; 84484; 85025; 85347; 85379; 92928; 93005; 93010; 93455; 94664; 94760; 96365; 96367; 96372; 96375; 97139; C1876; J0153; J0696; J1644; J1650; J1815; J2001; J2405; J3010; J3490; Q9967; U0002

== ENCOUNTER 2020-08-28 10:52 | Emergency (ER) | payer MEDICARE ==
[~2020-08-28 10:52] MED LIST: Iopamidol-370 76% 500 ML 1 ML ONE
--- NOTE | 2020-08-28 11:44 | RAD ---
Chest AP view INDICATION: History of dyspnea COMPARISON: August 18, 2020 FINDINGS: Lungs: There are worsening bilateral hazy airspace opacities involving the lower lobes. Cardiac silhouette: Cardiomegaly persists Pulmonary vasculature: Pulmonary vascular congestion persists with persistent central edema pattern appears Pleural spaces: Enlarging small bilateral pleural effusions, right greater than left Upper abdomen: No abnormality seen. Osseous structures: Midline sternotomy changes are stable. No acute fractures evident. Additional findings: Single lead AICD is unchanged. IMPRESSION: Worsening CHF
[2020-08-28 12:28] LABS: #Basophils 0.1 thou/uL (0.0-0.2); #Eosinphils 0.2 thou/uL (0.0-0.7); #Monocytes 0.7 thou/uL (0.11-0.59); #Neutrophils 8.9 thou/uL (1.40-6.50); %Basophils 0.5 % (0.0-1.0); %Eosinophils 1.4 % (0.0-10.0); %Lymphocytes 9.5 % (21.0-51.0); %Monocytes 6.1 % (0.0-10.0); %Neutrophils 82.5 % (42.0-75.0); Hemoglobin 10.8 g/dL (12.0-16.0); Mean Corpuscular HGB CONC 33.2 g/dL (32.0-36.0); Mean Corpuscular Hemoglobin 31.1 pg (27.0-31.0); Mean Corpuscular Volume 93.9 fL (78.0-98.0); Mean Platelet Volume 9.5 fL (7.4-10.4); Platelet Count 259 thou/uL (130-400); RBC Distribution Width 15.1 % (11.5-14.5); Red Blood Cell (RBC) Count 3.47 mill/uL (4.20-5.40); White Blood Cell (WBC) Count 10.8 thou/uL (4.8-10.8)
--- NOTE | 2020-08-28 12:41 | CT ---
CT angiogram chest with IV contrast and 3-D imaging HISTORY: Dyspnea. Chest pain. COMPARISON: 06/29/2020. FINDINGS: There is good contrast opacification of the pulmonary arteries. Contrast has not reached th e aorta at the time of imaging. Small amount of bilateral pleural fluid has increased slightly since the prior exam. Slightly enlarge d, reactive appearing lymph nodes are scattered about the mediastinum, measuring up to 2.2 cm greatest diameter at the aorticopulmonary window. Scattered throughout each lung, now are peripheral wedge-shaped patchy areas of groundglass infiltrat e. Some central interstitial thickening. No evidence of pneumothorax. Postoperative changes of the mediastinum. Left subclavian cardiac electronic device in place. IMPRESSION : No evidence of pulmonary embolus. Superimposed upon slightly increasing bilateral pleural effusions and nonspecific reactive appearing mediastinal lymph nodes, there are new peripheral patchy bilateral infiltrates with an appearance commonly seen with COVID pneumonitis. Please correlate regarding the possibility.
[2020-08-28 12:51] LABS: ALT (SGPT) 14 U/L (8-55); AST (SGOT) 13 U/L (5-34); Albumin 3.8 g/dL (3.5-5.0); Alkaline Phosphatase 117 U/L (40-110); Anion Gap 15 mmol/L (10-20); BUN (Urea Nitrogen) 18 mg/dL (9.8-20.1); Bilirubin, Total 0.6 mg/dL (0.2-1.2); Calc. Creatinine Clearance 0 mL/min (70-130); Calcium 8.7 mg/dL (7.8-10.44); Carbon Dioxide 22 mmol/L (22-29); Chloride 104 mmol/L (98-107); Glucose 163 mg/dL (70-105); Potassium 4.4 mmol/L (3.5-5.1); Protein, Total 6.8 g/dL (6.0-8.3); Sodium 137 mmol/L (136-145)
[2020-08-28 13:23] LABS: CKMB 5.5 ng/mL (0-6.6)
[2020-08-28 13:45] LABS: SARS-CoV-2 NAA Rapid Test Not Detected (NotDetected)
[2020-08-28] MEDS ORDERED: Furosemide 40 MG/4 ML VIAL ONE (13:47)
[2020-08-28] MEDS ORDERED: Azithromycin 500 MG VIAL ONE (13:47)
[2020-08-28] MEDS ORDERED: Dexamethasone 4 mg/ml Vial ONE (13:47)
[2020-08-28] MEDS ORDERED: Enoxaparin Sodium 80 MG/0.8 ML SYRINGE ONE (13:47)
[2020-08-28] MEDS ORDERED: Ondansetron PF 4 MG/2 ML Vial ONE (14:01)
--- NOTE | 2020-09-02 10:49 | EKG ---
Test Reason : Blood Pressure : / mmHG Vent. Rate : 090 BPM Atrial Rate : 090 BPM P-R Int : 170 ms QRS Dur : 104 ms QT Int : 416 ms P-R-T Axes : 056 015 128 degrees QTc Int : 508 ms Normal sinus rhythm Possible Left atrial enlargement Anterior infarct , age undetermined Prolonged QT Abnormal ECG Confirmed by MICHELLE BAH, JENNYFER Castrejon ([id number]), city editor JULISA ROSENTHAL ([id number]) on 09/02/2020 10:49:33 AM Referred By: Confirmed By:JENNYFER MARTINEZ MD
== END 2020-08-28 16:29 | disposition short-term general hospital (02) ==
LOC: ERS 10:52
DX: I21.4 Non-ST elevation (NSTEMI) myocardial infarction (principal); J18.9 Pneumonia, unspecified organism; I50.9 Heart failure, unspecified; E11.9 Type 2 diabetes mellitus without complications; F17.210 Nicotine dependence, cigarettes, uncomplicated; Z79.899 Other long term (current) drug therapy; Z79.82 Long term (current) use of aspirin; Z20.828 Contact with and (suspected) exposure to other viral communicable diseases; Z79.4 Long term (current) use of insulin
CPT/HCPCS: 0240U; 71045; 71275; 80053; 82553; 83605; 83880; 84484 ×2; 85025; 87040; 87149 ×2; 93005; 94760; 36415; 96365; 96372; 96375; J0456; J1100; J1650; J1940; J2405; Q9967

== ENCOUNTER 2020-10-10 19:40 | Inpatient (IN) | payer MEDICARE, OTHER ==
[2020-10-10 20:35] LABS: #Basophils 0.1 thou/uL (0.0-0.2); #Eosinphils 0.2 thou/uL (0.0-0.7); #Lymphocytes 1.7 thou/uL (1.20-3.40); #Monocytes 0.5 thou/uL (0.11-0.59); #Neutrophils 7.5 thou/uL (1.40-6.50); %Basophils 0.6 % (0.0-1.0); %Eosinophils 2.1 % (0.0-10.0); %Lymphocytes 17.1 % (21.0-51.0); %Monocytes 5.4 % (0.0-10.0); %Neutrophils 74.9 % (42.0-75.0); Hemoglobin 12.6 g/dL (12.0-16.0); Mean Corpuscular Hemoglobin 30.8 pg (27.0-31.0); Mean Corpuscular Volume 93.3 fL (78.0-98.0); Mean Platelet Volume 10.3 fL (7.4-10.4); Platelet Count 195 thou/uL (130-400); RBC Distribution Width 14.7 % (11.5-14.5); Red Blood Cell (RBC) Count 4.11 mill/uL (4.20-5.40)
[2020-10-10] MEDS ORDERED: Morphine 4 MG/ML VIAL ONE (20:42)
[2020-10-10] MEDS ORDERED: Ondansetron PF 4 MG/2 ML Vial ONE (20:42)
[2020-10-10 21:08] LABS: ALT (SGPT) 12 U/L (8-55); AST (SGOT) 15 U/L (5-34); Albumin 4.2 g/dL (3.5-5.0); Alkaline Phosphatase 102 U/L (40-110); Anion Gap 18 mmol/L (10-20); BUN (Urea Nitrogen) 33 mg/dL (9.8-20.1); Bilirubin, Total 0.3 mg/dL (0.2-1.2); Calc. Creatinine Clearance 0 mL/min (70-130); Calcium 9.3 mg/dL (7.8-10.44); Carbon Dioxide 23 mmol/L (22-29); Chloride 95 mmol/L (98-107); Globulin 3.2 g/dL (2.4-3.5); Glucose 515 mg/dL (70-105); Lipase 21 U/L (8-78); Potassium 5.6 mmol/L (3.5-5.1); Protein, Total 7.4 g/dL (6.0-8.3); Sodium 130 mmol/L (136-145)
[2020-10-10] MEDS ORDERED: Furosemide 100 MG/10 ML VIAL ONE (21:36)
[2020-10-10] MEDS ORDERED: Nitroglycerin 2% Ointment 1 INCH/1 GM Packet ONE (22:05)
[2020-10-10] MEDS ORDERED: Morphine 2 MG/ML VIAL SLOW IVP PRN (22:45)
[2020-10-10] MEDS ORDERED: Nitroglycerin 0.4 MG TAB (25 Tab Bottle) SL PRN (22:45)
[2020-10-10] MEDS ORDERED: Dextrose 50% Abboject 50 ML SYRINGE SLOW IVP PRN (22:49)
[2020-10-10] MEDS ORDERED: Dextrose 5% in Water 1,000 ML IV PRN (22:49)
[2020-10-10] MEDS ORDERED: HumaLOG 300 UNITS/3 ML VIAL SC PRN (22:49)
[2020-10-10] MEDS ORDERED: Albuterol 200 PUFF (6.7GM INHALER) INH PRN (23:18)
[2020-10-11] VITALS: BMI 27.1
[2020-10-11 00:05] LABS: Troponin I 0.054 ng/mL (< 0.028)
[2020-10-11] MEDS ORDERED: Dextrose 50% Abboject 50 ML SYRINGE SLOW IVP PRN (01:50)
[2020-10-11] MEDS ORDERED: Dextrose 5% in Water 1,000 ML IV PRN (01:50)
[2020-10-11] MEDS ORDERED: Insulin Glargine 30 UNITS in Pre-Filled Syringe 1 EACH SC SCH (02:15)
[2020-10-11] MEDS: traZODone HCl 50 MG TAB PO PRN ×2 (02:34→21:24)
[2020-10-11 03:50] LABS: Cardiac Risk 2.7 (Less than 4.5)
[2020-10-11 04:01] LABS: Troponin I 0.448 ng/mL (< 0.028)
[2020-10-11] MEDS ORDERED: Heparin 10,000 UNITS/ 10 ML VIAL SLOW IVP SCH (05:00)
[2020-10-11] MEDS ORDERED: Heparin 25,000 units/D5W 500 ML IVPB SCH (05:00)
[2020-10-11] MEDS: Furosemide 40 MG/4 ML VIAL SLOW IVP SCH ×2 (06:06→14:41)
[2020-10-11] MEDS: Nitroglycerin 2% Ointment 1 INCH/1 GM Packet TOP SCH ×3 (06:06→21:23)
[2020-10-11] MEDS: HumaLOG 300 UNITS/3 ML VIAL SC PRN ×2 (06:08→17:50)
[2020-10-11 06:59] LABS: PTT 215.3 sec (22.9-36.1)
[2020-10-11 08:38] LABS: SARS-CoV-2 PCR by NAA Not Detected (NotDetected)
[2020-10-11] MEDS ORDERED: Carvedilol 6.25 MG TAB PO SCH (09:00)
[2020-10-11] MEDS ORDERED: Enoxaparin Sodium 40 MG/0.4 ML SYRINGE SC SCH (09:00)
[2020-10-11] MEDS: Gabapentin 300 MG CAP PO SCH ×3 (09:28→21:21)
[2020-10-11] MEDS: Aspirin 325 mg Enteric Coated Tablet PO SCH (09:29)
[2020-10-11] MEDS: Folic Acid 1 MG TAB PO SCH (09:29)
[2020-10-11] MEDS: lamoTRIgine 100 MG TAB PO SCH (09:29)
[2020-10-11] MEDS: Clopidogrel Bisulfate 75 MG TAB PO SCH (09:29)
[2020-10-11] MEDS: Bupropion 100 MG SR TAB PO SCH (09:32)
[2020-10-11 09:36] LABS: Amphetamine Not Detected (NotDetected); Barbiturates Screen Not Detected (NotDetected); Benzodiazepine Screen Not Detected (NotDetected); Cocaine Metabolite Screen Not Detected (NotDetected); Medtox Control Line Valid? VALID (VALID); Medtox Reader # READER 4; Methadone Not Detected (NotDetected); Methamphetamine Not Detected (NotDetected); Opiate Screen Detected (NotDetected); Oxycodone Screen Not Detected (NotDetected); Phencyclidine (PCP) Not Detected (NotDetected); THC/Cannabinoid Screen Not Detected (NotDetected); Tricyclic Screen Not Detected (NotDetected)
[2020-10-11] MEDS: Lisinopril 5 MG TAB PO SCH (10:56)
[2020-10-11] MEDS: Amiodarone 200 MG TAB PO SCH (14:41)
[2020-10-11] MEDS ORDERED: HumaLOG 300 UNITS/3 ML VIAL SC SCH (17:00)
[2020-10-11] MEDS ORDERED: Communication Order-Pharmacy FS SCH (17:15)
[2020-10-11] MEDS: Sodium Chloride 0.9% 1,000 ML IV SCH (17:33)
[2020-10-11] MEDS: Carvedilol 6.25 MG TAB PO SCH (21:20)
[2020-10-11] MEDS: Insulin Glargine 40 UNITS in Pre-Filled Syringe 1 EACH SC SCH (21:22)
[2020-10-11] MEDS: Rosuvastatin 20 MG TAB PO SCH (21:23)
[2020-10-12] MEDS: Sodium Chloride 0.9% 1,000 ML IV SCH ×2 (05:23→16:08)
[2020-10-12] MEDS: Aspirin 325 mg Enteric Coated Tablet PO SCH (05:47)
[2020-10-12] MEDS: Amiodarone 200 MG TAB PO SCH (05:47)
[2020-10-12] MEDS: Nitroglycerin 2% Ointment 1 INCH/1 GM Packet TOP SCH (05:47)
[2020-10-12] MEDS ORDERED: Nitroglycerin 100MG/250ML BOT 250 ML ONE (07:00)
[2020-10-12] MEDS ORDERED: Heparin 10,000 UNITS/ 10 ML VIAL ONE (07:00)
[2020-10-12] MEDS ORDERED: Verapamil 5 MG/2 ML VIAL ONE (07:01)
[2020-10-12] MEDS ORDERED: Adenosine 6 MG/2 ML VIAL ONE (07:07)
[2020-10-12 07:20] LABS: Anion Gap 16 mmol/L (10-20); BUN (Urea Nitrogen) 30 mg/dL (9.8-20.1); Calc. Creatinine Clearance 67 mL/min (70-130); Calcium 8.5 mg/dL (7.8-10.44); Carbon Dioxide 21 mmol/L (22-29); Chloride 103 mmol/L (98-107); Glucose 243 mg/dL (70-105); Potassium 4.8 mmol/L (3.5-5.1); Sodium 135 mmol/L (136-145)
[2020-10-12] MEDS ORDERED: Midazolam HCl 2 mg/2 ml Vial ONE (07:48)
[2020-10-12] MEDS ORDERED: Fentanyl 100 MCG/2 ML VIAL ONE (07:48)
[2020-10-12] MEDS ORDERED: Clopidogrel Bisulfate 300 MG TAB ONE (08:19)
[2020-10-12] MEDS ORDERED: Ondansetron PF 4 MG/2 ML Vial ONE (08:48)
[2020-10-12] MEDS ORDERED: Sodium Chloride 0.9% 1,000 ML IV SCH (09:00)
[2020-10-12] MEDS: Carvedilol 6.25 MG TAB PO SCH (09:53)
[2020-10-12] MEDS: Furosemide 40 MG TAB PO SCH (09:54)
[2020-10-12] MEDS: Gabapentin 300 MG CAP PO SCH ×3 (09:54→21:24)
[2020-10-12] MEDS: Bupropion 100 MG SR TAB PO SCH (09:54)
[2020-10-12] MEDS: Folic Acid 1 MG TAB PO SCH (09:55)
[2020-10-12] MEDS: Clopidogrel Bisulfate 75 MG TAB PO SCH (09:55)
[2020-10-12] MEDS: Lisinopril 5 MG TAB PO SCH (09:56)
[2020-10-12] MEDS: lamoTRIgine 100 MG TAB PO SCH (09:57)
[2020-10-12] MEDS ORDERED: Iopamidol 370 76% 100 ML VIAL ONE (10:20)
[2020-10-12] MEDS ORDERED: Iopamidol 370 76% 50 ML VIAL FS ONE (10:20)
[2020-10-12] MEDS ORDERED: Sodium Chloride 0.9% 500 ML IV SCH (12:15)
[2020-10-12 12:22] LABS: Hemoglobin 11.3 g/dL (12.0-16.0); Mean Corpuscular HGB CONC 33.8 g/dL (32.0-36.0); Mean Corpuscular Hemoglobin 31.3 pg (27.0-31.0); Mean Corpuscular Volume 92.6 fL (78.0-98.0); Mean Platelet Volume 10.2 fL (7.4-10.4); Platelet Count 148 thou/uL (130-400); RBC Distribution Width 14.4 % (11.5-14.5); Red Blood Cell (RBC) Count 3.62 mill/uL (4.20-5.40); White Blood Cell (WBC) Count 9.3 thou/uL (4.8-10.8)
[2020-10-12 12:39] LABS: Band 7 % (5-11); Eosinophils 1 % (0-10); Lymphocytes 8 % (21-51); MDiff Complete? YES; Monocytes 6 % (0-10); Neutrophil 68 % (42-75); Platelet Morphology Comment Appears Adequate; RBC Morphology Normal; Reactive Lymphocytes 10 % (0-10)
[2020-10-12] MEDS: HumaLOG 300 UNITS/3 ML VIAL SC PRN ×2 (17:54→21:25)
[2020-10-12] MEDS: Rosuvastatin 20 MG TAB PO SCH (21:24)
[2020-10-12] MEDS: Insulin Glargine 40 UNITS in Pre-Filled Syringe 1 EACH SC SCH (21:24)
[2020-10-12] MEDS: traZODone HCl 50 MG TAB PO PRN (21:24)
[2020-10-13] MEDS: Sodium Chloride 0.9% 1,000 ML IV SCH ×2 (03:30→13:09)
[2020-10-13 05:38] LABS: ALT (SGPT) 12 U/L (8-55); AST (SGOT) 16 U/L (5-34); Albumin 3.4 g/dL (3.5-5.0); Alkaline Phosphatase 79 U/L (40-110); Anion Gap 16 mmol/L (10-20); BUN (Urea Nitrogen) 19 mg/dL (9.8-20.1); Bilirubin, Total 0.5 mg/dL (0.2-1.2); Calc. Creatinine Clearance 84 mL/min (70-130); Calcium 8.2 mg/dL (7.8-10.44); Carbon Dioxide 19 mmol/L (22-29); Chloride 109 mmol/L (98-107); Globulin 2.6 g/dL (2.4-3.5); Glucose 74 mg/dL (70-105); Potassium 4.3 mmol/L (3.5-5.1); Sodium 140 mmol/L (136-145)
[2020-10-13 06:26] LABS: #Eosinphils 0.2 thou/uL (0.0-0.7); #Lymphocytes 1.1 thou/uL (1.20-3.40); #Monocytes 0.7 thou/uL (0.11-0.59); #Neutrophils 4.5 thou/uL (1.40-6.50); %Basophils 0.6 % (0.0-1.0); %Eosinophils 2.9 % (0.0-10.0); %Lymphocytes 16.8 % (21.0-51.0); %Monocytes 10.9 % (0.0-10.0); %Neutrophils 68.9 % (42.0-75.0); Hemoglobin 9.9 g/dL (12.0-16.0); Mean Corpuscular HGB CONC 33.6 g/dL (32.0-36.0); Mean Corpuscular Hemoglobin 31.7 pg (27.0-31.0); Mean Corpuscular Volume 94.4 fL (78.0-98.0); Mean Platelet Volume 10.8 fL (7.4-10.4); Platelet Count 114 thou/uL (130-400); Platelet Morphology Comment Appears Decreased; RBC Distribution Width 14.3 % (11.5-14.5); White Blood Cell (WBC) Count 6.5 thou/uL (4.8-10.8)
[2020-10-13] MEDS ORDERED: Amiodarone 200 MG TAB PO SCH (06:59)
[2020-10-13] MEDS ORDERED: Aspirin 81 mg Enteric Coated Tablet PO SCH (07:43)
[2020-10-13] MEDS: Lisinopril 5 MG TAB PO SCH (08:35)
[2020-10-13] MEDS: Furosemide 40 MG TAB PO SCH (08:36)
[2020-10-13] MEDS: Gabapentin 300 MG CAP PO SCH (08:36)
[2020-10-13] MEDS: Bupropion 100 MG SR TAB PO SCH (08:36)
[2020-10-13] MEDS: lamoTRIgine 100 MG TAB PO SCH (08:37)
[2020-10-13] MEDS: Folic Acid 1 MG TAB PO SCH (08:37)
[2020-10-13] MEDS: Clopidogrel Bisulfate 75 MG TAB PO SCH (08:37)
[2020-10-13 12:02] VITALS: BP 103/62; TEMP 98.5
== END 2020-10-13 15:00 | disposition home or self-care (01) | DRG 246 ==
LOC: ERS 19:40 → 2NO 22:08
PROVIDERS: ADMIT Internal Medicine; ATTEND Internal Medicine
PROC: B2111ZZ Fluoroscopy of Multiple Coronary Arteries using Low Osmolar Contrast (ICD-10-PCS; principal; 2020-10-10)
PROC: 027034Z Dilation of Coronary Artery, One Artery with Drug-eluting Intraluminal Device, Percutaneous Approach (ICD-10-PCS; 2020-10-10)
PROC: 4A023N7 Measurement of Cardiac Sampling and Pressure, Left Heart, Percutaneous Approach (ICD-10-PCS; 2020-10-10)
DX: T82.855A Stenosis of coronary artery stent, initial encounter (principal); I21.4 Non-ST elevation (NSTEMI) myocardial infarction; E87.1 Hypo-osmolality and hyponatremia; I25.110 Atherosclerotic heart disease of native coronary artery with unstable angina pectoris; F43.10 Post-traumatic stress disorder, unspecified; F17.210 Nicotine dependence, cigarettes, uncomplicated; E87.5 Hyperkalemia; E11.65 Type 2 diabetes mellitus with hyperglycemia; F31.9 Bipolar disorder, unspecified; F19.11 Other psychoactive substance abuse, in remission; E78.5 Hyperlipidemia, unspecified; N18.30 Chronic kidney disease, stage 3 unspecified; E11.22 Type 2 diabetes mellitus with diabetic chronic kidney disease; I12.9 Hypertensive chronic kidney disease with stage 1 through stage 4 chronic kidney disease, or unspecified chronic kidney disease; Z20.822 Contact with and (suspected) exposure to COVID-19; Y83.9 Surgical procedure, unspecified as the cause of abnormal reaction of the patient, or of later complication, without mention of misadventure at the time of the procedure; Z86.73 Personal history of transient ischemic attack (TIA), and cerebral infarction without residual deficits; Z95.1 Presence of aortocoronary bypass graft; Z95.5 Presence of coronary angioplasty implant and graft; Z98.51 Tubal ligation status; Z90.81 Acquired absence of spleen; Z88.2 Allergy status to sulfonamides; Z88.8 Allergy status to other drugs, medicaments and biological substances; Z79.899 Other long term (current) drug therapy; Z79.82 Long term (current) use of aspirin; Z79.4 Long term (current) use of insulin; Z90.49 Acquired absence of other specified parts of digestive tract
CPT/HCPCS: 36415; 36416; 71045; 76942; 80048; 80053; 80061; 80306; 83690; 83880; 84484; 85007; 85025; 85027; 85347; 85730; 87635; 92928; 93005; 93010; 93458; 93798; 96374; 96375; 97139; 99152; 99153; C1874; C9600; J0153; J1644; J1815; J1940; J2250; J2270; J2405; J3010; Q9967; U0003; U0005

== ENCOUNTER 2020-11-28 13:33 | Emergency (ER) | payer MEDICARE, OTHER ==
[2020-11-28] MEDS ORDERED: Aspirin Chewable 81 MG TAB ONE (13:51)
[2020-11-28 15:08] LABS: Actual Bicarbonate (HCO3v) 21 mEq/L (22-28); Analyzer IN Cardio ER; Base Excess 0.4 mEq/L (-2.0 to +3.0); Calcium, Ionized (venous) 0.83 mmol/L (1.16-1.32); Chloride (VBG) 107 mmol/L (98-106); Hemoglobin (Hb) 12.2 g/dL (11.7-16.0); Potassium (VBG) 4.97 mmol/L (3.70-5.30); Sodium 131.8 mmol/L (133-146); pH (venous) 7.59 (7.32-7.43)
[2020-11-28 15:23] LABS: Hemoglobin 11.9 g/dL (12.0-16.0); Mean Corpuscular HGB CONC 33.2 g/dL (32.0-36.0); Mean Corpuscular Hemoglobin 32.6 pg (27.0-31.0); Mean Corpuscular Volume 98.4 fL (78.0-98.0); Mean Platelet Volume 9.8 fL (7.4-10.4); Platelet Count 186 thou/uL (130-400); RBC Distribution Width 14.7 % (11.5-14.5); Red Blood Cell (RBC) Count 3.64 mill/uL (4.20-5.40); White Blood Cell (WBC) Count 6.8 thou/uL (4.8-10.8)
[2020-11-28 15:24] LABS: %Lymphocytes 19.2 % (21.0-51.0); %Monocytes 4.7 % (0.0-10.0); %Neutrophils 73.3 % (42.0-75.0)
[2020-11-28 15:28] LABS: #Basophils 0.1 thou/uL (0.0-0.2); #Eosinphils 0.1 thou/uL (0.0-0.7); #Lymphocytes 1.3 thou/uL (1.20-3.40); #Monocytes 0.3 thou/uL (0.11-0.59); %Basophils 0.9 % (0.0-1.0); %Eosinophils 1.9 % (0.0-10.0)
[2020-11-28 16:17] LABS: Bacteria/HPF None Seen HPF (None Seen); Bilirubin Negative (Negative); Blood, Urine Negative (Negative); Clarity Clear (Clear); Glucose, Urine (Dipstick) 300 mg/dL (Negative); Ketone, Urine Negative (Negative); Leukocyte 75 Leu/uL (Negative); Nitrite Negative (Negative); Protein, Urine (Dipstick) 10 mg/dL (Neg-Trace); RBC/HPF 0-3 HPF (0-3); Specific Gravity, Urine 1.025 (1.002-1.036); Urobilinogen Normal mg/dL (Less than 2); pH, Urine 5.5 (5.0-9.0)
[2020-11-28] MEDS ORDERED: Furosemide 40 MG/4 ML VIAL ONE (16:23)
[2020-11-28 16:51] LABS: ALT (SGPT) 18 U/L (8-55); AST (SGOT) 12 U/L (5-34); Alkaline Phosphatase 133 U/L (40-110); Anion Gap 18 mmol/L (10-20); BUN (Urea Nitrogen) 24 mg/dL (9.8-20.1); Bilirubin, Total 0.6 mg/dL (0.2-1.2); Calc. Creatinine Clearance 0 mL/min (70-130); Calcium 8.8 mg/dL (7.8-10.44); Carbon Dioxide 19 mmol/L (22-29); Chloride 103 mmol/L (98-107); Globulin 3.1 g/dL (2.4-3.5); Glucose 267 mg/dL (70-105); Protein, Total 7.1 g/dL (6.0-8.3); Sodium 135 mmol/L (136-145)
[2020-11-28] MEDS ORDERED: cefTRIAXone\\ROCEPHIN 1 GM VIAL ONE (17:09)
[2020-11-28] MEDS ORDERED: Enoxaparin Sodium 80 MG/0.8 ML SYRINGE ONE (17:10)
[2020-11-28 17:14] LABS: Lipase 24 U/L (8-78)
[2020-11-28 17:15] LABS: CKMB 1.9 ng/mL (0-6.6)
[2020-11-28 19:53] LABS: Troponin I 0.017 ng/mL (< 0.028)
[2020-11-28 22:37] LABS: Troponin I 0.017 ng/mL (< 0.028)
[2020-11-28] MEDS ORDERED: Ondansetron ODT 4 MG TAB PO PRN (23:00)
[2020-11-28] MEDS ORDERED: Acetaminophen 325 MG TAB PO PRN (23:00)
[2020-11-28] MEDS ORDERED: Ondansetron PF 4 MG/2 ML Vial IVP PRN (23:00)
[2020-11-28 23:04] LABS: SARS-CoV-2 NAA Rapid Test Not Detected (NotDetected)
[2020-11-29 02:37] LABS: #Basophils 0.1 thou/uL (0.0-0.2); #Eosinphils 0.2 thou/uL (0.0-0.7); #Lymphocytes 1.4 thou/uL (1.20-3.40); #Monocytes 0.4 thou/uL (0.11-0.59); #Neutrophils 5.1 thou/uL (1.40-6.50); %Basophils 0.8 % (0.0-1.0); %Eosinophils 2.5 % (0.0-10.0); %Lymphocytes 19.2 % (21.0-51.0); %Monocytes 5.9 % (0.0-10.0); %Neutrophils 71.6 % (42.0-75.0); Hemoglobin 10.5 g/dL (12.0-16.0); Mean Corpuscular HGB CONC 33.2 g/dL (32.0-36.0); Mean Corpuscular Hemoglobin 32.3 pg (27.0-31.0); Mean Corpuscular Volume 97.2 fL (78.0-98.0); Mean Platelet Volume 9.4 fL (7.4-10.4); Platelet Count 180 thou/uL (130-400); RBC Distribution Width 14.5 % (11.5-14.5); Red Blood Cell (RBC) Count 3.26 mill/uL (4.20-5.40); White Blood Cell (WBC) Count 7.1 thou/uL (4.8-10.8)
[2020-11-29 02:58] LABS: Troponin I 0.044 ng/mL (< 0.028)
[2020-11-29 04:12] LABS: Anion Gap 18 mmol/L (10-20); BUN (Urea Nitrogen) 24 mg/dL (9.8-20.1); Calc. Creatinine Clearance 0 mL/min (70-130); Calcium 8.7 mg/dL (7.8-10.44); Carbon Dioxide 19 mmol/L (22-29); Chloride 103 mmol/L (98-107); Glucose 316 mg/dL (70-105); Potassium 4.2 mmol/L (3.5-5.1); Sodium 136 mmol/L (136-145)
[2020-11-29] MEDS ORDERED: Enoxaparin Sodium 40 MG/0.4 ML SYRINGE SC SCH (09:00)
[2020-11-29] MEDS ORDERED: Furosemide 40 MG/4 ML VIAL SLOW IVP SCH (09:00)
[2020-11-29] MEDS ORDERED: Aspirin Chewable 81 MG TAB PO SCH (09:00)
== END 2020-11-29 02:37 | disposition short-term general hospital (02) ==
LOC: ERS 13:33
DX: I11.0 Hypertensive heart disease with heart failure (principal); I50.9 Heart failure, unspecified; R59.0 Localized enlarged lymph nodes; R79.89 Other specified abnormal findings of blood chemistry; R91.8 Other nonspecific abnormal finding of lung field; Z20.822 Contact with and (suspected) exposure to COVID-19; E11.9 Type 2 diabetes mellitus without complications; F17.210 Nicotine dependence, cigarettes, uncomplicated; Z86.73 Personal history of transient ischemic attack (TIA), and cerebral infarction without residual deficits; Z79.82 Long term (current) use of aspirin; Z79.899 Other long term (current) drug therapy; Z79.4 Long term (current) use of insulin
CPT/HCPCS: 0240U; 71045; 71275; 80048; 80053; 82553; 82805; 83605; 83690; 83880; 84484 ×2; 85025; 85379; 93005; 36415; 81003; 81015; 96365; 96372; 96375; J0696; J1650; J1940; Q9967

== ENCOUNTER 2021-03-08 19:30 | Outpatient (CLI) | payer MEDICARE | END 2021-03-08 19:31 | disposition home or self-care (01) | LOC: SLEEPLAB 19:30 | PROVIDERS: ATTEND Internal Medicine Cardiovascular Disease | DX: G47.33 Obstructive sleep apnea (adult) (pediatric) (principal); R06.83 Snoring; F32.9 Major depressive disorder, single episode, unspecified; I11.0 Hypertensive heart disease with heart failure; I50.9 Heart failure, unspecified; E11.9 Type 2 diabetes mellitus without complications; I25.10 Atherosclerotic heart disease of native coronary artery without angina pectoris; E66.9 Obesity, unspecified; Z68.27 Body mass index [BMI] 27.0-27.9, adult | CPT/HCPCS: 95810 ==

== ENCOUNTER 2021-03-14 10:01 | Outpatient (CLI) | payer MEDICARE ==
[2021-03-14] MEDS ORDERED: Iopamidol 300 61% 50 ML VIAL FS ONE (10:40)
[2021-03-14] MEDS ORDERED: EPINEPHrine 1 MG/ML AMP ONE (10:40)
[2021-03-14] MEDS ORDERED: Lidocaine 1% PF 10 ML AMP ONE (10:40)
== END 2021-03-14 10:02 | disposition home or self-care (01) ==
LOC: RAD 10:01
PROVIDERS: ATTEND Orthopaedic Surgery
DX: M19.012 Primary osteoarthritis, left shoulder (principal)
CPT/HCPCS: 23350; J0171; J2001; Q9967

== ENCOUNTER 2021-09-14 16:05 | Emergency (ER) | payer MEDICAID, MEDICARE, OTHER | END 2021-09-14 21:29 | disposition home or self-care (01) | LOC: ERS 16:05 | DX: Z48.01 Encounter for change or removal of surgical wound dressing (principal); E11.9 Type 2 diabetes mellitus without complications; J44.9 Chronic obstructive pulmonary disease, unspecified; I50.9 Heart failure, unspecified; Z86.73 Personal history of transient ischemic attack (TIA), and cerebral infarction without residual deficits; F17.210 Nicotine dependence, cigarettes, uncomplicated; Z79.4 Long term (current) use of insulin; Z79.82 Long term (current) use of aspirin; Z79.02 Long term (current) use of antithrombotics/antiplatelets | CPT/HCPCS: 29405 ==

== ENCOUNTER 2023-03-24 13:13 | Outpatient (CLI) | payer OTHER, MEDICAID | END 2023-03-24 13:14 | disposition home or self-care (01) | LOC: BICMAMMO 13:13 | PROVIDERS: ATTEND Nurse Practitioner Family | DX: Z12.31 Encounter for screening mammogram for malignant neoplasm of breast (principal) | CPT/HCPCS: 77063; 77067 ==